=== PATIENT | male | born 1955 | race Caucasian/White ===

== ENCOUNTER 2016-11-13 22:22 | Emergency (ER) | payer OTHER ==
[~2016-11-13] VITALS: Ht 167.6 cm; Wt 77.2 kg
[~2016-11-13 22:22] MED LIST: ASPI81TA21 PO; BTP80 PO; CLX/20 PO; CRS20 PO; ELQ25 PO; MGNO400 PO; NTRGSL/4 UT; ULT/50 PO
[2016-11-13 22:27] VITALS: TEMP 36.8; Ht 167.6 cm; Wt 77.2 kg
--- NOTE | 2016-11-13 23:17 | DIAGNOSTIC IMAGING REPORT ---
CT SCAN OF THE BRAIN WITHOUT IV CONTRAST CLINICAL HISTORY: Fall. Intoxication. COMPARISON STUDY: No priors. TECHNIQUE: Unenhanced axial CT scan of the brain is performed from the vertex to the skull base. Automated dose control exposure was utilized. CT DOSE: 638.56 mGycm FINDINGS: Brain parenchyma: The brain parenchyma is normal in appearance. There is no hemorrhage, mass effect, or evidence of acute territorial ischemia by CT criteria. Vasquez-white matter is preserved. No extra-axial fluid collection is seen. Ventricles, sulci, cisterns: Normal in configuration. Intracranial vasculature: There is atherosclerotic calcification of the cavernous carotid and vertebral arteries. Calvarium: There is no depressed femoral fracture. Sinuses and mastoids: The visualized paranasal sinuses are clear. The mastoid air cells are well pneumatized. Orbits: The bony orbits are grossly intact. IMPRESSION: No acute intracranial abnormality. Electronically signed by: Cuong Green M.D. 11/13/2016 11:16 PM Dictated Date/Time: 11/13/2016 11:14 PM
--- NOTE | 2016-11-13 23:22 | DIAGNOSTIC IMAGING REPORT ---
CT SCAN OF THE FACIAL BONES WITHOUT IV CONTRAST CLINICAL HISTORY: Fall. Facial injury. Intoxication. COMPARISON STUDY: CT scan of the brain performed concurrently on 11/13/2016. TECHNIQUE: High-resolution CT scan of the facial bones is performed. Images are reviewed in the axial, sagittal, and coronal planes. IV contrast was not administered for this examination. CT DOSE: 598.82 mGycm FINDINGS: The skeletal structures are well mineralized. There are bilateral nasal bone fractures with minimal depression and comminution on the left. Overlying soft tissue edema is noted. The bony nasal septum is intact noting slight leftward deviation. No additional facial bone fracture is seen. The bony orbits are intact and the orbital contents are within normal limits. The zygomatic arches and pterygoid plates are preserved. The maxilla and mandible are intact. There are no layering blood products within the paranasal sinuses. Trace mucosal thickening is seen in the left maxillary antrum. The remaining paranasal sinuses and the mastoid air cells are clear. The visualized calvarium and upper cervical spine are maintained. Partially imaged brain parenchyma is within normal limits. There is atherosclerotic calcification of the carotid bulbs. IMPRESSION: 1. There are bilateral nasal bone fractures as above with comminution on the left and overlying soft tissue edema. 2. No additional facial bone fracture is seen. The bony orbits are intact. Electronically signed by: Cuong Green M.D. 11/13/2016 11:21 PM Dictated Date/Time: 11/13/2016 11:17 PM
[2016-11-13 23:28] LABS: BASO % 0.8 %; BASO ABS # 0.05 K/uL (0-0.2); COMPLETE YES; HEMATOCRIT 44.9 % (42-52); IG% 1.8 %; LYMPH ABS # 1.62 K/uL (1.2-3.4); MEAN CELL VOLUME 96.8 fL (80-100); MEAN CORPUSCULAR HEMOGLOBIN 33.2 pg (25-34); MEAN CORPUSCULAR HGB CONC 34.3 g/dl (32-36); MEAN PLATELET VOLUME 9.9 fL (7.4-10.4); MONO % 7.9 %; NEUT % 60.5 %; PLATELET COUNT 217 K/uL (130-400); RED BLOOD COUNT 4.64 M/uL (4.7-6.1); WHITE BLOOD COUNT 6.24 K/uL (4.8-10.8)
[2016-11-13 23:49] LABS: BUN/CREATININE RATIO 16.3 (10-20); CALCIUM 9.1 mg/dl (8.5-10.1); POTASSIUM 3.8 mmol/L (3.5-5.1)
[2016-11-13 23:51] LABS: PROTHROMBIN TIME (PATIENT) 10.4 SECONDS (9.0-12.0)
[2016-11-13 23:52] LABS: ALB/GLOB RATIO 1.1 (0.9-2)
[2016-11-14] MEDS ORDERED: XYLOCAINE 1%/SOD BICARB 20 ML VIAL INFIL ONE (02:00)
[2016-11-14] MEDS ORDERED: OMEP20CA9 PO (02:31)
[2016-11-14] MEDS ORDERED: ROSU40TA18 PO (02:31)
[2016-11-14] MEDS ORDERED: NRV/5 PO (02:31)
[2016-11-14] MEDS ORDERED: SOTA160T PO (02:31)
[2016-11-14] MEDS ORDERED: DTRSR/10 PO (02:31)
[2016-11-14] MEDS ORDERED: SNC/20 PO (02:31)
[2016-11-14] MEDS ORDERED: APIX1TAB3 PO (02:31)
[2016-11-14] MEDS ORDERED: LSN20 PO (02:31)
--- NOTE | 2016-11-14 04:52 | EMERGENCY ROOM VISIT NOTE ---
History First contact with patient: 22:30 Chief Complaint: FALL Stated Complaint: FALL/ POSS. NOSE FX/ ALCOHOL USAGE History of Present Illness The patient is a 61 year old male who presents to the Emergency Room with complaints of fall tonight with injury to his face. The patient admits to drinking alcohol but does not quantify how much. The patient alcohol on a regular basis. He believes the fall as mechanical, but is unsure. He does have injury to his nose and bleeding across the bridge of the nose. He does not report any pain and arrives the ambulance. The patient does not wish for intervention. He rates his discomfort a 0/10. She denies chronic medical disease, although based on his EMR he does have a history of A. fib and is on Eliquis. Review of Systems More than 10 systems were reviewed and otherwise negative with the exception of history of present illness. Past Medical/Surgical History Medical Problems: (1) Coronary artery disease (2) Limp (3) Muscular atrophy (4) Neurogenic bladder (5) Spina bifida (6) Spinal cord tumor Surgical Problems: (1) H/O percutaneous transluminal coronary angioplasty (2) Stented coronary artery Family History Cancer Diabetes mellitus Gallbladder disease Heart disease Hypertension Social History Smoking Status: Former Smoker Alcohol Use: occasionally Marital Status: Housing Status: lives with family Occupation Status: employed Current/Historical Medications Scheduled Amlodipine Besylate (Amlodipine Besylate), 5 MG PO DAILY Apixaban (Eliquis), 5 MG PO BID Lisinopril (Lisinopril), 20 MG PO DAILY Omeprazole (Prilosec), 20 MG PO BID Oxybutynin Chloride (Oxybutynin Chloride ER), 10 MG PO DAILY Rosuvastatin Calcium (Rosuvastatin Calcium), 40 MG PO DAILY Sotalol Hcl (Sotalol Hcl), 160 MG PO BID Trospium Chloride (Trospium Chloride), 20 MG PO BID Scheduled PRN Nitroglycerin (Nitrostat), 0.4 MG UT UD PRN for Chest Pain Allergies Coded Allergies: Sulfamethoxazole w/Trimethoprim (Verified Allergy, Intermediate, RASH, 11/14) Physical Exam Vital Signs Date Time Temp Pulse Resp B/P (MAP) Pulse Ox O2 Delivery O2 Flow Rate FiO2 11/14/16 03:45 63 18 104/65 95 Room Air 11/14/16 01:45 71 21 153/97 98 Room Air 11/14/16 00:00 63 20 91/61 96 Room Air 11/13/16 23:38 67 16 116/75 91 Room Air 11/13/16 23:32 68 11/13/16 22:27 36.8 69 18 135/67 94 Room Air Physical Exam VITALS: Vitals are noted on the nurse's note and reviewed by myself. Vital signs stable. GENERAL: Well-developed, well-nourished, white male who appears grossly intoxicated on examination. The patient is cooperative with the exam. HEAD: Normocephalic atraumatic. EARS: External ear normal. External auditory canals clear, tympanic membranes pearly vasquez without erythema or effusion bilaterally. EYES: Pupils equal round and reactive to light and accommodation. Conjunctivae without injection, sclerae without icterus. Extraocular movements intact. NOSE: There is a 2.0 cm linear laceration over the bridge of the nose that does gape and will require repair. There is dried blood noted in the bilateral nares without active bleeding. No septal hematoma. MOUTH: Mucous membranes moist. Tonsils are not enlarged. Pharynx without erythema, blood, or exudate. Uvula midline. Airway patent. NECK: Supple without nuchal rigidity. No lymphadenopathy. No thyromegaly. Cervical spine is nontender. HEART: Regular rate and rhythm without murmurs gallops or rubs. LUNGS: Clear to auscultation bilaterally without wheezes, rales or rhonchi. No retractions or accessory muscle use. ABDOMEN: Positive normal bowel sounds x 4. Soft, nontender, without masses or organomegaly. No guarding or rebound tenderness. MUSCULOSKELETAL: No muscle atrophy, erythema, or edema noted. Full range of motion without joint tenderness in all extremities. NEURO: Patient appears intoxicated. GCS 15 Medical Decision & Procedures ER Provider Diagnostic Interpretation: CT SCAN OF THE BRAIN WITHOUT IV CONTRAST CLINICAL HISTORY: Fall. Intoxication. COMPARISON STUDY: No priors. TECHNIQUE: Unenhanced axial CT scan of the brain is performed from the vertex to the skull base. Automated dose control exposure was utilized. CT DOSE: 638.56 mGycm FINDINGS: Brain parenchyma: The brain parenchyma is normal in appearance. There is no hemorrhage, mass effect, or evidence of acute territorial ischemia by CT criteria. Vasquez-white matter is preserved. No extra-axial fluid collection is seen. Ventricles, sulci, cisterns: Normal in configuration. Intracranial vasculature: There is atherosclerotic calcification of the cavernous carotid and vertebral arteries. Calvarium: There is no depressed femoral fracture. Sinuses and mastoids: The visualized paranasal sinuses are clear. The mastoid air cells are well pneumatized. Orbits: The bony orbits are grossly intact. IMPRESSION: No acute intracranial abnormality. CT SCAN OF THE FACIAL BONES WITHOUT IV CONTRAST CLINICAL HISTORY: Fall. Facial injury. Intoxication. COMPARISON STUDY: CT scan of the brain performed concurrently on 11/13/2016. TECHNIQUE: High-resolution CT scan of the facial bones is performed. Images are reviewed in the axial, sagittal, and coronal planes. IV contrast was not administered for this examination. CT DOSE: 598.82 mGycm FINDINGS: The skeletal structures are well mineralized. There are bilateral nasal bone fractures with minimal depression and comminution on the left. Overlying soft tissue edema is noted. The bony nasal septum is intact noting slight leftward deviation. No additional facial bone fracture is seen. The bony orbits are intact and the orbital contents are within normal limits. The zygomatic arches and pterygoid plates are preserved. The maxilla and mandible are intact. There are no layering blood products within the paranasal sinuses. Trace mucosal thickening is seen in the left maxillary antrum. The remaining paranasal sinuses and the mastoid air cells are clear. The visualized calvarium and upper cervical spine are maintained. Partially imaged brain parenchyma is within normal limits. There is atherosclerotic calcification of the carotid bulbs. IMPRESSION: 1. There are bilateral nasal bone fractures as above with comminution on the left and overlying soft tissue edema. 2. No additional facial bone fracture is seen. The bony orbits are intact. Laboratory Results 11/13/16 23:17 Red Blood Count 4.64, Mean Corpuscular Volume 96.8, Mean Corpuscular Hemoglobin 33.2, Mean Corpuscular Hemoglobin Concent 34.3, Mean Platelet Volume 9.9, Neutrophils (%) (Auto) 60.5, Lymphocytes (%) (Auto) 26.0, Monocytes (%) (Auto) 7.9, Eosinophils (%) (Auto) 3.0, Basophils (%) (Auto) 0.8, Neutrophils # (Auto) 3.78, Lymphocytes # (Auto) 1.62, Monocytes # (Auto) 0.49, Eosinophils # (Auto) 0.19, Basophils # (Auto) 0.05 11/13/16 23:17 Test 11/13/16 23:17 11/13/16 23:18 White Blood Count 6.24 K/uL (4.8-10.8) Red Blood Count 4.64 M/uL (4.7-6.1) Hemoglobin 15.4 g/dL (14.0-18.0) Hematocrit 44.9 % (42-52) Mean Corpuscular Volume 96.8 fL (80-100) Mean Corpuscular Hemoglobin 33.2 pg (25-34) Mean Corpuscular Hemoglobin Concent 34.3 g/dl (32-36) Platelet Count 217 K/uL (130-400) Mean Platelet Volume 9.9 fL (7.4-10.4) Neutrophils (%) (Auto) 60.5 % Lymphocytes (%) (Auto) 26.0 % Monocytes (%) (Auto) 7.9 % Eosinophils (%) (Auto) 3.0 % Basophils (%) (Auto) 0.8 % Neutrophils # (Auto) 3.78 K/uL (1.4-6.5) Lymphocytes # (Auto) 1.62 K/uL (1.2-3.4) Monocytes # (Auto) 0.49 K/uL (0.11-0.59) Eosinophils # (Auto) 0.19 K/uL (0-0.5) Basophils # (Auto) 0.05 K/uL (0-0.2) RDW Standard Deviation 43.5 fL (36.4-46.3) RDW Coefficient of Variation 12.5 % (11.5-14.5) Immature Granulocyte % (Auto) 1.8 % Immature Granulocyte # (Auto) 0.11 K/uL (0.00-0.02) Prothrombin Time 10.4 SECONDS (9.0-12.0) Prothromb Time International Ratio 1.0 (0.9-1.1) Activated Partial Thromboplast Time 27.1 SECONDS (21.0-31.0) Partial Thromboplastin Ratio 1.0 Anion Gap 9.0 mmol/L (3-11) Est Creatinine Clear Calc Drug Dose 77.8 ml/min Estimated GFR () 95.1 Estimated GFR (Non- 82.0 BUN/Creatinine Ratio 16.3 (10-20) Calcium Level 9.1 mg/dl (8.5-10.1) Total Bilirubin 0.8 mg/dl (0.2-1) Aspartate Amino Transf (AST/SGOT) 45 U/L (15-37) Alanine Aminotransferase (ALT/SGPT) 50 U/L (12-78) Alkaline Phosphatase 131 U/L (45-117) Total Protein 7.4 gm/dl (6.4-8.2) Albumin 3.9 gm/dl (3.4-5.0) Globulin 3.5 gm/dl (2.5-4.0) Albumin/Globulin Ratio 1.1 (0.9-2) Ethyl Alcohol mg/dL 368.0 mg/dl (0-3) Bedside Troponin I < 0.030 ng/ml (0-0.045) Procedure Laceration repair. Patient elects to have their laceration repaired. Verbal consent was obtained to perform the procedure. There is an abundance of materials available for the procedure. Patient is not allergic to latex. Using sterile technique the wound was cleaned with Betadine. The area was sterilely draped. 3 ml of 1% buffered lidocaine was used to anesthetize the nasal laceration. Once the patient was anesthetized, the wound was copiously irrigated under pressure with sterile saline. The wound was explored and there were no deep structures injured such as tendons, bone, or significant blood vessels. The laceration was repaired using 2 simple interrupted 6-0 nylon sutures with the wound edges being well approximated. Hemostasis was achieved. The area was cleaned with sterile saline and dressed with bacitracin ointment and bandage. Patient is reportedly up-to-date on his tetanus and this was deferred. Patient tolerated the procedure well without complications. Blood loss was negligible. ED Course Physical exam and history were performed. Nursing notes and EMR were reviewed. Patient appears to have suffered a mechanical fall while drinking alcohol this evening. The patient has a history of atrial fibrillation and is on Eliquis. The patient is only minimally cooperative with the examination and with testing. With the assistance of nursing we were able to perform basic labs but not establish an IV EKG was performed and was normal sinus rhythm at [address] elevation or ectopy. The patient did consent to CT scanning. The patient's blood work is as above and was reviewed. He does not have a significantly elevated white blood cell count, gross anemia, bandemia, or significant electrolyte imbalance. His alcohol is markedly elevated at 368. CT scan of the head and face do not show evidence of acute intracranial bleed but does reveal a nasal bone fracture as described above. The patient was monitored for greater than 7 hours here in the emergency department. Throughout this time he did sober up and did not report new or other injury. He continues without neck or chest discomfort. He is much more conversational and cooperative over time. He was able to stand and use the bathroom. The patient does have a nasal bridge laceration and this was repaired as above. The patient is evidently followed with ENT in the past, and he will need referred back to their service regarding his nasal fracture. The patient was otherwise invited back to the emergency department with any new, worsening, or concerning symptoms. He'll be discharged home under the care of his who is sober and is acting as the driver education road instructor [id number]. The chart was completed utilizing [employer] Speech Voice Recognition Software. Grammatical errors, random word insertions, pronoun errors, and incomplete sentences are an occasional consequence of this system due to software limitations, ambient noise, and hardware issues. Any formal questions or concerns about the content, text, or information contained within the body of this dictation should be directly addressed to the provider for clarification. . Medical Decision Differential diagnosis: Etiologies such as concussion, contusion, fracture, subdural hematoma, epidural hematoma, intraparenchymal hemorrhage, as well as other traumatic pathologies were entertained. Impression Primary Impression: Fall Additional Impressions: Nasal fracture Alcohol intoxication Departure Information Referrals Kodi Cronin III, M.D. (PCP) Patient Instructions My [facility] Problem Qualifiers
[2016-11-14 06:35] VITALS: BP 104/71; PULSE 70; O2SAT 95
== END 2016-11-14 06:32 | disposition home or self-care (01) ==
LOC: EDBD 22:22 → C.EDC 22:26 → C.EDB 11-14 06:32
DX: S02.2XXA Fracture of nasal bones, initial encounter for closed fracture (principal); S01.21XA Laceration without foreign body of nose, initial encounter; F10.129 Alcohol abuse with intoxication, unspecified; W19.XXXA Unspecified fall, initial encounter; I48.91 Unspecified atrial fibrillation; Z79.01 Long term (current) use of anticoagulants; M62.50 Muscle wasting and atrophy, not elsewhere classified, unspecified site; I25.10 Atherosclerotic heart disease of native coronary artery without angina pectoris; Q05.9 Spina bifida, unspecified; Z95.5 Presence of coronary angioplasty implant and graft; Z80.9 Family history of malignant neoplasm, unspecified; Z83.3 Family history of diabetes mellitus; Z82.49 Family history of ischemic heart disease and other diseases of the circulatory system; Z87.891 Personal history of nicotine dependence; Z79.899 Other long term (current) drug therapy

== ENCOUNTER 2019-08-30 14:45 | Inpatient (IN) ==
[2019-08-30] MEDS ORDERED: ACETAMINOPHEN 325 MG TAB PO PRN (15:22)
[2019-08-30] MEDS ORDERED: bisacodyL 5 MG TABEC PO PRN (17:26)
--- NOTE | 2019-08-30 17:33 | History & Physical Report ---
Date of Service August 30, 2019 Assessment & Plan (1) Neuropathic foot ulcer: (2) Cellulitis: Possible Osteomyelitis Left 5th toe Pt is 64 y/o M with PMH paroxysmal atrial fibrillation, CAD s/p PCI to LAD in 2010, mitral regurgitation, HTN, HLD, spina bifida s/p repair, neuropathy, h/o ETOH abuse quit in 2016 seen as direct admission for left toe ulcer and cellulitis. Pt reports h/o callus to dorsal left 5th toe, however 4 days ago area appeared like a scab and pt states removed it. Since has noticed some purulent discharge, tactile fever and rapid worsening redness over past 24 hours. Seen in wound clinic today and had area debrided and wound culture obtained Today pt afebrile, no leukocytosis, CRP: 9, ESR: 47 Xray toe: Thin-walled bone cyst versus early developing osteomyelitis midshaft fifth metatarsal Blood cultures pending Wound culture obtained in wound clinic 08/30/2019 Zosyn, vancomycin Ortho consult CBC, BMP in am (3) Hypokalemia: K: 2.9 Magnesium level pending Replace and monitor (4) Paroxysmal atrial fibrillation: CHADS score of 1 Continue sotalol (5) Coronary artery disease: S/P PCI LAD in 2010 Continue aspirin, rosuvastatin (6) HTN (hypertension): Stable Continue lisinopril (7) Neuropathy: Continue gabapentin (8) Spina bifida: Fall precautions Continue self cath as needed DVT Prophylaxis: SCDs for now Full Code as per discussion with pt Follows with Dr Cronin for routine care Pt was seen and care coordinated with Dr Dumont. See addendum Admission and Anticipated Discharge Date Admission Date: August 30, 2019 History of Present Illness Chief Complaint: left foot ulcer and redness Primary Care Provider: Kodi Cronin MD Pt is 64 y/o M with PMH paroxysmal atrial fibrillation, CAD s/p PCI to LAD in 2010, mitral regurgitation, HTN, HLD, spina bifida s/p repair, neuropathy, h/o ETOH abuse quit in 2016 seen as direct admission for left toe ulcer and cellulitis. Pt reports h/o callus to dorsal left 5th toe, however 4 days ago area appeared like a scab and pt states removed it. Since has noticed some purulent discharge. He states 3 days ago felt feverish and lethargic. Did not take temperature at the time. Reports yesterday feeling better however noticed redness to left 5th toe and foot with rapid increased redness of foot today. Pt seen in wound clinic today and had area debrided and wound culture obtained. Pt reports chronic SOB with exertion since his PCI, denies any increased SOB. Has chronic constipation. Has to self cath several times a day. Pt reports has orthotic shoes. Has not been on any recent antibiotics. Denies diaphoresis, N/V/D, LIU, dizziness, syncope, vision changes, neck pain, CP, orthopnea, palpitations, cough, choking, otalgia, rhinorrhea, abdominal pain, extremity edema, other rashes, dysuria, hematuria. Denies h/o MRSA. Allergies Allergy/AdvReac Type Severity Reaction Status Date / Time Bactrim Allergy Intermediate RASH Verified 11/14/16 02:28 sulfamethoxazole Allergy Intermediate RASH Verified 08/30/19 13:16 trimethoprim Allergy Intermediate RASH Verified 08/30/19 13:16 Home Medications Home Medications Medication Instructions Recorded Confirmed Type bisacodyl 5 mg PO DAILY PRN 05/02/19 08/30/19 History doxylamine succinate 25 mg PO HS PRN 05/02/19 08/30/19 History duloxetine 60 mg PO HS 05/02/19 08/30/19 History gabapentin 300 mg PO HS 05/02/19 08/30/19 History lisinopril 10 mg PO QAM 05/02/19 08/30/19 History omeprazole 20 mg PO BID 05/02/19 08/30/19 History rosuvastatin 40 mg PO QAM 05/02/19 08/30/19 History sotalol 160 mg PO BID 05/02/19 08/30/19 History aspirin 81 mg tablet,delayed 81 mg PO DAILY 08/30/19 08/30/19 History release Past Med/Surg History Medical History (Updated 08/30/19 @ 18:36 by Bhargavi Bates PA-C) Anxiety Atrial fibrillation DX 2012 HX OF CARDIOVERSION X 2 LAST ATRIAL FIB WAS ABOUT 5 YEARS AGO BPH (benign prostatic hyperplasia) CAD (coronary artery disease) Cardiac murmur follows with DR. ARREDONDO LAST ECHO 10/2017 Chronic constipation Esophageal dysphagia GERD (gastroesophageal reflux disease) History of cardioversion X2 HTN (hypertension) Neurogenic bladder (Chronic) Neuropathic foot ulcer Neuropathy Osteoarthritis Paroxysmal atrial fibrillation Spina bifida Surgical History History of right cataract surgery Hx of arthroscopic knee surgery LEFT Hx of colonoscopy Hx of esophagogastroduodenoscopy Hx of foot surgery RIGHT - STRAIGHTEN ANKLE AND UNSUCCESSFUL Hx of heart artery stent 2009 X2 STENT (EDILMA) AT [facility] FOLLOW WITH DR ARREDONDO Hx of spinal surgery 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 Social History Preferred Language: Dominican Communication Ability: Effective Side Piece Coverer Required: No Beliefs That Will Affect Care: None Current Living Situation: Spouse Other Information That Helps Us Care for You: No Feels Safe at Home: Yes Safety Concerns: Feels Safe At This Time Smoking Status: Former smoker Smoking End Date: 1992 ; Second Hand Exposure: Yes (mother smoked) ; Hx Alcohol Use: No (former; no use since 2016) Hx Substance Use: Yes substance use type: former substance user Last Used Substance Other:: 2017 Review of Systems Review of Systems: All systems reviewed & are unremarkable except as noted in HPI & below Physical Exam Physical Exam: General: no distress, WDWN Head: normocephalic, atraumatic Eyes: PERRL, EOM's intact, conjunctiva non-injected, anicteric ENT: normal inspection external ears, nose, mucous membranes moist Neck: supple, trachea midline, non-tender Lungs: clear, no respiratory distress, no wheezing/rhonchi/rales CV: RRR, no murmur, no pretibial edema Abd: normal BS, soft, non-tender Ext: no calf tenderness; left foot: left 5th toe dorsal aspect with open area with surrounding erythema with erythema and warmth extending to dorsal foot and slightly to anterior ankle. No purulent discharge at this time (area was debrided today at wound clinic) Neuro: A&O x 3, no focal deficits noted, normal affect Skin: warm, dry Results & Data Results & Data ([facility]) Vital Signs (Past 12 Hours) Vital Signs Temp Pulse Resp BP Pulse Ox 08/30/19 16:59 36.8 C 80 18 110/73 100 Laboratory Results Short CBC 08/30/19 Range/Units 17:34 WBC 8.45 (4.8-10.8) K/uL Hgb 14.2 (14.0-18.0) g/dL Hct 40.4 L (42-52) % Plt Count 213 (130-400) K/uL BMP 08/30/19 17:34 Sodium 137 Potassium 2.9 L Chloride 106 Carbon Dioxide 26 BUN 20 H Creatinine 0.96 Glucose 66 L Calcium 8.6 Liver Function 08/30/19 Range/Units 17:34 Total Bilirubin 1.3 H (0.2-1) mg/dl AST 18 (15-37) U/L ALT 33 (12-78) U/L Alkaline Phosphatase 107 (45-117) U/L Albumin 3.7 (3.4-5.0) gm/dl Diagnostic Findings Left Toe Xray: IMPRESSION: Thin-walled bone cyst versus early and or developing osteomyelitis midshaft fifth metatarsal. Moderate generalized degenerative change throughout the remaining bony structures. Mild soft tissue edema. Code Status & VTE Plan VTE Prophylaxis Plan VTE Prophylaxis will be ordered: Yes Supervising Physician Co-Signing Physician Notes I have seen and examined the patient and have discussed the case with the provider above. I agree with the assessment and plan as stated with the following exceptions. 64 yo spina bifida patient with chronic neuropathy in the lower extremities. Reports noncompliance with his orthotics and uses "[employer] shoes" to ambulate. Noted a "sore" in place for one year, but knew not to touch or manipulate it based on issues with skin wounds in the past. However, he removed the scab on his left 5th metatarsal last week which resulted in some bleeding. Over subsequent days, a spreading cellulitis occurred with wound debridement today and admission to the hospital this afternoon. The patient is not septic or ill-appearing. However, his cellulitis involves roughly 50% of his LLE, and I agree that intravenous antibiotics are warranted. As purulent drainage was noted in the debridement, will cover for staph aureus and MRSA empirically. Will also cover empirically with Zosyn as there was a rapidly sp reading erythema and there is a connection between this wound and a pressure ulcer pending culture results and clinical improvement. Ortho was consulted, and appreciate thoughts. MRI will not change initial management so will defer to Ortho and/or ID consultants. Replace potassium and repeat, Mg normal. Monitored on telemetry out of caution for possible developing illness, however, may be downgraded tomorrow if responding well clinically. My exam revealed stable vitals with a normal heart and lung exam, no abdominal issues. Skin findings included small closed wound without any drainage on left lateral foot. Surrounding cellulitis to the left knee was noted. Pt states the wound already looks improved since debridement performed. Tim,
[2019-08-30 17:54] LABS: Basophils # (auto) 0.05 K/uL (0-0.2); Basophils % (auto) 0.6 %; Eosinophils # (auto) 0.18 K/uL (0-0.5); Eosinophils % (auto) 2.1 %; Hematocrit (blood only) 40.4 % (42-52); Hemoglobin 14.2 g/dL (14.0-18.0); Immature Granulocytes # (auto) 0.11 K/uL (0.00-0.02); Immature Granulocytes % (auto) 1.3 %; Lymphocytes # (auto) 1.22 K/uL (1.2-3.4); Lymphocytes % (auto) 14.4 %; Mean Corpuscular Hgb Conc 35.1 g/dL (32-36); Mean Platelet Volume 10.5 fL (7.4-10.4); Monocytes # (auto) 1.14 K/uL (0.11-0.59); Monocytes % (auto) 13.5 %; Neutrophils # (auto) 5.75 K/uL (1.4-6.5); Neutrophils % (auto) 68.1 %; Platelet Count 213 K/uL (130-400); RDW Coefficient of Variation 12.8 % (11.5-14.5); RDW Standard Deviation 42.1 fL (36.4-46.3); Red Blood Count 4.44 M/uL (4.7-6.1); White Blood Count 8.45 K/uL (4.8-10.8)
[2019-08-30] MEDS ORDERED: PATIENT'S HEIGHT AND/OR WEIGHT NEEDED SCH (17:55)
[2019-08-30] MEDS ORDERED: VANCOMYCIN CONSULT ACTIVE PRN (17:56)
[2019-08-30] MEDS ORDERED: PIPERACILL/TAZOBAC CONSULT ACTIVE PRN (17:57)
--- NOTE | 2019-08-30 18:07 | XRay Report ---
XR toe(s) LT min 2V CLINICAL HISTORY: left 5th toe ulcer. R/O osteomyelitis COMPARISON: None. DISCUSSION: Findings consistent with an old healed fracture base fifth metatarsal. Moderate degenerat sona change of the interphalangeal as well as metatarsophalangeal joints. Probable thin-walled bone cyst versus potential early lytic lesion of the midshaft fifth metatarsal. Mild generalized degenerative change of all remaining bony structures. Moderate generalized soft tiss ue edema. IMPRESSION: Thin-walled bone cyst versus early and or developing osteomyelitis midshaft fifth metatar mireille. Moderate generalized degenerative change throughout the remaining bony structures. Mild soft tis ned edema. ACT 112: Negative or not required by law. The above report was generated using voice recognition software. It may contain grammatical, syntax or spelling errors. Electronically signed by: Melquiades Camarena M.D. 08/30/2019 6:06 PM
[2019-08-30 18:15] LABS: Albumin Level 3.7 gm/dl (3.4-5.0); BUN Creatinine Ratio 21.4 (10-20); C Reactive Protein 9.06 mg/dl (0-0.29); Calcium 8.6 mg/dl (8.5-10.1); Est GFR (African American) 97.8; Est GFR (Non-African American) 84.4; Potassium 2.9 mmol/L (3.5-5.1)
[2019-08-30 18:17] LABS: Bilirubin,Total 1.3 mg/dl (0.2-1); Globulin 3.8 gm/dl (2.5-4.0); Total Protein 7.5 gm/dl (6.4-8.2)
[2019-08-30] MEDS ORDERED: POTASSIUM CHLORIDE 20 MEQ TABCR PO STA (18:37)
[2019-08-30] MEDS ORDERED: PIPERACILLIN/TAZOBACTAM 4.5 GM in DEXTROSE 5% 100 ML IV STA (18:43)
[2019-08-30] MEDS ORDERED: VANCOMYCIN HCL 1,750 MG in SODIUM CHLORIDE 0.9% 500 ML IV STA (18:44)
--- NOTE | 2019-08-30 19:45 | Pharmacy Report ---
Pharmacy Abx Dose Short Note - Date of Service August 30, 2019 - Assessment & Plan Assessment 64 year old M ordered empiric vancomycin + zosyn for treatment of cellulitis, possible osteo * 08/29 Xray toe: Thin-walled bone cyst versus early developing osteomyelitis midshaft fifth metatarsal * BC x 2 and left fifth toe wound culture (obtained at wound clinic) pending Plan Vancomycin * Loading dose: 1750 mg IV (24 mg/kg) x 1 * Maintenance dose: 1000 mg (13.7 mg/kg) IV q12h - dose per AUC nomogram * Trough level will be obtained if therapy is continued beyond 48 hours Zosyn * 4.5 g IV x 1, then 3.375 g IV q8h via ext inf Pharmacy will continue to follow and will adjust dose/frequency as necessary. Thank you.
[2019-08-30] MEDS: SOTALOL HCL 80 MG TAB PO SCH (21:31)
[2019-08-30] MEDS: PANTOprazole 40 MG TAB PO SCH (21:31)
[2019-08-30] MEDS: GABAPENTIN 300 MG CAP PO SCH (21:32)
[2019-08-30] MEDS: DULOXETINE HCL 60 MG CAP PO SCH (21:32)
[2019-08-30] MEDS ORDERED: POTASSIUM CHLORIDE 20 MEQ TABCR PO ONE (22:00)
[2019-08-31] MEDS: PIPERACILLIN/TAZOBACTAM 3.375 GM in DEXTROSE 5% 100 ML IV SCH ×3 (01:33→17:14)
[2019-08-31] MEDS: VANCOMYCIN HCL 1,000 MG in SODIUM CHLORIDE 0.9% 250 ML IV SCH ×2 (05:49→17:14)
[2019-08-31 05:52] LABS: Hemoglobin 12.3 g/dL (14.0-18.0); Mean Corpuscular Hemoglobin 31.5 pg (25-34); Mean Corpuscular Hgb Conc 34.2 g/dL (32-36); Mean Corpuscular Volume 92.1 fL (80-100); Mean Platelet Volume 10.3 fL (7.4-10.4); Platelet Count 192 K/uL (130-400); RDW Standard Deviation 43.2 fL (36.4-46.3); Red Blood Count 3.91 M/uL (4.7-6.1); White Blood Count 7.14 K/uL (4.8-10.8)
[2019-08-31 06:35] LABS: C Reactive Protein 7.94 mg/dl (0-0.29); Calcium 8.4 mg/dl (8.5-10.1); Creatinine Clr Calc Pharmacy 71.3 ml/min; Est GFR (African American) 96.6; Est GFR (Non-African American) 83.3; Magnesium 2.1 mg/dl (1.8-2.4); Potassium 4.3 mmol/L (3.5-5.1)
[2019-08-31] MEDS: PANTOprazole 40 MG TAB PO SCH ×2 (08:17→20:36)
[2019-08-31] MEDS: ROSUVASTATIN CALCIUM 20 MG TAB PO SCH (08:17)
[2019-08-31] MEDS: ASPIRIN 81 MG ECTAB PO SCH (08:17)
[2019-08-31] MEDS: SOTALOL HCL 80 MG TAB PO SCH ×2 (08:18→20:36)
[2019-08-31] MEDS: ENOXAPARIN INJ 40 MG/0.4 ML SYR SQ SCH (08:18)
[2019-08-31] MEDS ORDERED: lisinopriL 10 MG TAB PO SCH (09:00)
--- NOTE | 2019-08-31 10:14 | Hospitalist Progress Note ---
Date of Service August 31, 2019 Assessment & Plan (1) Neuropathic foot ulcer: (2) Cellulitis: 64 y/o M with PMH paroxysmal atrial fibrillation, CAD s/p PCI to LAD in 2010, mitral regurgitation, HTN, HLD, spina bifida s/p repair, neuropathy, h/o ETOH abuse quit in 2017 seen as direct admission for left toe ulcer and purulent cellulitis. Seen in wound clinic on 08/30/19 and had area debrided and wound culture obtained prior to hospital admission Patient remains afebrile No leukocytosis XR of left foot does report thin walled cyst vs early and or developing osteomyelitis of 5th metatarsal. Patient is currently on iv vancomycin and zosyn. Will get MRI of the foot to rule out possible osteomyelitis considering XR findings. Also this will help determine appropriate antibiotics and duration of therapy if patient does have osteomyelitis. May also be helpful for the orthopedic consult ordered by Admitting physician (3) Hypokalemia: K: 2.9 on admission Repleted K is 4.3 today Monitor (4) Paroxysmal atrial fibrillation: Rate controlled Continue sotalol (5) Coronary artery disease: S/P PCI LAD in 2010 Continue aspirin, rosuvastatin (6) HTN (hypertension): Stable Continue lisinopril (7) Neuropathy: Continue gabapentin Counselled patient on proper foot care considering his neuropathy. Stated he has not been using his custom shoes recently as his legs has been getting weaker and shoes felt heavier Continue to see orthotics outpatient for reevaluation of custom shoes (8) Spina bifida: Fall precautions Continue self cath as needed for incontinence DVT Prophylaxis: Lovenox Admission and Anticipated Discharge Date Admission Date: August 30, 2019 Subjective Patient seen and examined. Reports no new complaints. Reports he has chronic neuropathy, childhood spina bifida and spinal surgery. Has had callus for a while, removed it some days ago and shortly developed redness and purulent discharge. Seen at wound care clinic yesterday prior to admission Review of Systems Constitutional: no fever and no chills Eyes: no problem reported Ear, Nose, Mouth, Throat: no problem reported Respiratory: no cough, no dyspnea and no dyspnea on exertion Cardiovascular: no chest pain, no dyspnea, no palpitations and no edema Gastrointestinal: no abdominal pain, no nausea and no vomiting Musculoskeletal: Left 5th toe callus Left foot redness and purulent drainage Neurologic: Numbness in lower extremities bilaterally Psychiatric: no problem reported Physical Exam Constitutional: well developed and well nourished; no acute distress Eyes: PERRL, conjunctivae normal, anicteric sclerae ENMT: external ear and nose normal, oropharynx normal Respiratory: normal respiratory effort, lungs clear to auscultation Cardiovascular: RRR, no murmur, no edema S1 S2 Gastrointestinal (Abdomen): normal bowel sounds, soft, nontender, no hepatosplenomegaly Musculoskeletal: Erythema on anterior ankle Erythema over dorsum of left foot. Wound on dorsum of left 5th felder with erythema, no obvious drainage at this time, nontender Neurologic: PERRL, EOMI, accommodation nl, no face palsy, no dysarthria moves all extremities Reduced sensation on plantar surface of feet bilaterally, posterior aspect of lower extremities Psychiatric: A+Ox3, euthymic affect Results & Data Results & Data ([facility]) Vital Signs (Past 12 Hours) Vital Signs Temp Pulse Pulse Resp BP Pulse Ox 08/31/19 07:07 36.7 C 63 18 101/63 95 08/31/19 04:44 36.9 C 69 20 105/68 94 08/31/19 01:43 78 08/30/19 23:32 36.6 C 81 20 106/67 97 Laboratory Results Laboratory Results - last 24 hr 08/30/19 08/30/19 08/30/19 17:34 17:34 17:34 WBC 8.45 RBC 4.44 L Hgb 14.2 Hct 40.4 L MCV 91.0 MCH 32.0 MCHC 35.1 RDW Std Deviation 42.1 RDW Coeff of Elan 12.8 Plt Count 213 MPV 10.5 H Immature Gran % (Auto) 1.3 Neut % (Auto) 68.1 Lymph % (Auto) 14.4 Harper % (Auto) 13.5 Eos % (Auto) 2.1 Baso % (Auto) 0.6 Immature Gran # (Auto) 0.11 H Neut # (Auto) 5.75 Lymph # (Auto) 1.22 Harper # (Auto) 1.14 H Eos # (Auto) 0.18 Baso # (Auto) 0.05 ESR 47 H Sodium 137 Potassium 2.9 L Chloride 106 Carbon Dioxide 26 Anion Gap 5.0 BUN 20 H Creatinine 0.96 Est Cr Clr Drug Dosing 72.0 Est GFR ( Amer) 97.8 Est GFR (Non-Af Amer) 84.4 BUN/Creatinine Ratio 21.4 H Glucose 66 L POC Glucose Estimat Average Glucose Hemoglobin A1c Calcium 8.6 Magnesium Total Bilirubin 1.3 H AST 18 ALT 33 Alkaline Phosphatase 107 C-Reactive Protein 9.06 H Total Protein 7.5 Albumin 3.7 Globulin 3.8 Albumin/Globulin Ratio 1.0 08/30/19 08/31/19 08/31/19 17:34 02:31 05:33 WBC 7.14 RBC 3.91 L Hgb 12.3 L Hct 36.0 L MCV 92.1 MCH 31.5 MCHC 34.2 RDW Std Deviation 43.2 RDW Coeff of Elan 13.0 Plt Count 192 MPV 10.3 Immature Gran % (Auto) Neut % (Auto) Lymph % (Auto) Harper % (Auto) Eos % (Auto) Baso % (Auto) Immature Gran # (Auto) Neut # (Auto) Lymph # (Auto) Harper # (Auto) Eos # (Auto) Baso # (Auto) ESR Sodium Potassium Chloride Carbon Dioxide Anion Gap BUN Creatinine Est Cr Clr Drug Dosing Est GFR ( Amer) Est GFR (Non-Af Amer) BUN/Creatinine Ratio Glucose POC Glucose 110 H Estimat Average Glucose Hemoglobin A1c Calcium Magnesium 2.0 Total Bilirubin AST ALT Alkaline Phosphatase C-Reactive Protein Total Protein Albumin Globulin Albumin/Globulin Ratio 08/31/19 08/31/19 08/31/19 05:33 05:33 05:33 WBC RBC Hgb Hct MCV MCH MCHC RDW Std Deviation RDW Coeff of Elan Plt Count MPV Immature Gran % (Auto) Neut % (Auto) Lymph % (Auto) Harper % (Auto) Eos % (Auto) Baso % (Auto) Immature Gran # (Auto) Neut # (Auto) Lymph # (Auto) Harper # (Auto) Eos # (Auto) Baso # (Auto) ESR 28 H Sodium 137 Potassium 4.3 D Chloride 112 H Carbon Dioxide 27 Anion Gap -2.0 L BUN 15 Creatinine 0.97 Est Cr Clr Drug Dosing 71.3 Est GFR ( Amer) 96.6 Est GFR (Non-Af Amer) 83.3 BUN/Creatinine Ratio 16.0 Glucose 105 H POC Glucose Estimat Average Glucose Pending Hemoglobin A1c Pending Calcium 8.4 L Magnesium 2.1 Total Bilirubin AST ALT Alkaline Phosphatase C-Reactive Protein 7.94 H Total Protein Albumin Globulin Albumin/Globulin Ratio Diagnostic Findings XR toe(s) LT min 2V CLINICAL HISTORY: left 5th toe ulcer. R/O osteomyelitis COMPARISON: None. DISCUSSION: Findings consistent with an old healed fracture base fifth metatarsal. Moderate degenerative change of the interphalangeal as well as metatarsophalangeal joints. Probable thin-walled bone cyst versus potential early lytic lesion of the midshaft fifth metatarsal. Mild generalized degenerative change of all remaining bony structures. Moderate generalized soft tissue edema. IMPRESSION: Thin-walled bone cyst versus early and or developing osteomyelitis midshaft fifth metatarsal. Moderate generalized degenerative change throughout the remaining bony structures. Mild soft tissue edema.
--- NOTE | 2019-08-31 10:29 | Orthopedic Consultation ---
Date of Consultation August 31, 2019 Assessment & Plan (1) Neuropathic foot ulcer: Plan to continue IV antibiotics as per medicine service. He has been ordered for the left foot MRI to assess for osteomyelitis and question of any abscesses that may be developing. There is no leukocytosis noted at this time and ESR is 28 and CRP is 7.9. We will review the MRI results. If the patient does have noted osteomyelitis, the patient will possibly need a debridement or partial amputation if the osteomyelitis is extensive. Dr. Carvajal is aware and will be reviewing MRI results. Thank you for this consult. Supervising Physician Co-Signing Physician Notes Patient was seen and examined. I agree with LILLIAN Cuba's note above. He has acute infection of a callus that he picked off of the dorsal aspect of his left 5th toe 5 days ago. It looks like he has cellulitis spreading from this open ulcer over the fifth toe at the level of the middle phalanx. The patient reports that this is already significantly improving over the past day. No obvious osteomyelitis of the fifth toe on x-ray, but MRI is pending to evaluate this further and look for any abscesses. His x-ray did incidentally show an expansile lytic lesion in the midshaft of the metatarsal, remote from the area of his ulcer; we can evaluate this further on the MRI. Based on clinical exam, I think that this is mostly just a superficial cellulitis that will not require surgical intervention and will likely improve with IV antibiotic treatment, but the MRI will show us more. We will have our foot and ankle specialist, Dr. Carvajal, reviewed his case and provide his input as well. History of Present Illness Reason for Consultation: Neuropathic ulcer left fifth toe Attending Physician: Anabel Ball MD History of Present Illness Patient is a 64-year-old white male who has a history of paroxysmal atrial fibrillation, CAD status post PCI to LAD in 2010, mitral regurgitation, hypertension, hyperlipidemia, spina bifida status post repair with neuropathy for years was admitted yesterday with a cellulitis and a neuropathic ulcer of the left fifth toe. Patient states that he has dealt with neuropathic foot problems over the years and has been seen by Dr. Carvajal in the past for his right foot as well. He states that he has had a callused area over the left fifth toe that has been fine for approximately 5 years. He states that he noticed a scab that had developed on the area recently and he ended up picking off the scab. Over short period time, this developed into a cellulitis and he had some noted drainage from the toe ulcer. He saw Dr. Ferguson yesterday in the office who debrided the ulcer at that time. The amount of cellulitis, the patient was then sent to [facility] for IV antibiotics. During that time, foot x-ray was taken and showed a likelihood of a thin-walled bone cyst at the fifth metatarsal. We have been asked to see him for his neuropathic ulcer as well as the possibility of the bone cyst. Currently the patient is awake and alert and states that his cellulitis is much better than yesterday. He also states that the ulcer on the fifth toe looks about the same as it does normally after the debridement. Allergies Allergy/AdvReac Type Severity Reaction Status Date / Time Bactrim Allergy Intermediate RASH Verified 11/14/16 02:28 sulfamethoxazole Allergy Intermediate RASH Verified 08/30/19 13:16 trimethoprim Allergy Intermediate RASH Verified 08/30/19 13:16 Home Medications Home Medications Medication Instructions Recorded Confirmed Type bisacodyl 5 mg PO DAILY PRN 05/02/19 08/30/19 History doxylamine succinate 25 mg PO HS PRN 05/02/19 08/30/19 History duloxetine 60 mg PO HS 05/02/19 08/30/19 History gabapentin 300 mg PO HS 05/02/19 08/30/19 History lisinopril 10 mg PO QAM 05/02/19 08/30/19 History omeprazole 20 mg PO BID 05/02/19 08/30/19 History rosuvastatin 40 mg PO QAM 05/02/19 08/30/19 History sotalol 160 mg PO BID 05/02/19 08/30/19 History aspirin 81 mg tablet,delayed 81 mg PO DAILY 08/30/19 08/30/19 History release Patient History Medical History Anxiety Atrial fibrillation DX 2013 HX OF CARDIOVERSION X 2 LAST ATRIAL FIB WAS ABOUT 5 YEARS AGO BPH (benign prostatic hyperplasia) CAD (coronary artery disease) Cardiac murmur follows with DR. ARREDONDO LAST ECHO 10/2017 Chronic constipation Esophageal dysphagia GERD (gastroesophageal reflux disease) History of cardioversion X2 HTN (hypertension) Neurogenic bladder (Chronic) Neuropathic foot ulcer Neuropathy Osteoarthritis Paroxysmal atrial fibrillation Spina bifida Surgical History History of right cataract surgery Hx of arthroscopic knee surgery LEFT Hx of colonoscopy Hx of esophagogastroduodenoscopy Hx of foot surgery RIGHT - STRAIGHTEN ANKLE AND UNSUCCESSFUL Hx of heart artery stent 2009 X2 STENT (EDILMA) AT [facility] FOLLOW WITH DR ARREDONDO Hx of spinal surgery 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 Social History Preferred Language: Icelandic Communication Ability: Effective Skin Piler Required: No Beliefs That Will Affect Care: None Current Living Situation: Spouse Other Information That Helps Us Care for You: No Feels Safe at Home: Yes Safety Concerns: Feels Safe At This Time Smoking Status: Former smoker Smoking End Date: 1992 ; Second Hand Exposure: Yes (mother smoked) ; Hx Alcohol Use: No (former; no use since 2016) Hx Substance Use: Yes substance use type: former substance user Last Used Substance Other:: 2017 Physical Exam Physical Exam: Focusing the exam on the left foot, there is no dressing on the left fifth toe and foot. The neuropathic ulcer is completely closed at this time and is approximately just shy of a centimeter in width. There is a darkened area over the area in question that is not eschar at the center and looks more like necrosis. Tissue surrounding this area is light in color but not macerated. Erythema surrounding this and the whole toe. The patient states that this is what it normally looks like. He has a moderate cellulitis of the foot that is also traveling up the lower extremity to about mid tibia. Moderate swelling over the dorsum of the foot. Decreased sensation throughout the foot. Minimal tenderness on palpation. Patient states that this is much better than this morning. He has no overt pain on palpation of the area in question over his fifth toe and the fifth metatarsal. Again there are no open wounds draining at this time. Results & Data ([facility]) Vital Signs (Past 12 Hours) Vital Signs Temp Pulse Pulse Resp BP Pulse Ox 08/31/19 08:15 60 08/31/19 07:07 36.7 C 63 18 101/63 95 08/31/19 04:44 36.9 C 69 20 105/68 94 04/16/20 01:43 78 08/30/19 23:32 36.6 C 81 20 106/67 97 Laboratory Results Laboratory Results WBC 7.14 K/uL (4.8-10.8) 08/31/19 05:33 RBC 3.91 M/uL (4.7-6.1) L 08/31/19 05:33 Hgb 12.3 g/dL (14.0-18.0) L 08/31/19 05:33 Hct 36.0 % (42-52) L 08/31/19 05:33 MCV 92.1 fL (80-100) 08/31/19 05:33 MCH 31.5 pg (25-34) 08/31/19 05:33 MCHC 34.2 g/dL (32-36) 08/31/19 05:33 RDW Std Deviation 43.2 fL (36.4-46.3) 08/31/19 05:33 RDW Coeff of Elan 13.0 % (11.5-14.5) 08/31/19 05:33 Plt Count 192 K/uL (130-400) 08/31/19 05:33 MPV 10.3 fL (7.4-10.4) 08/31/19 05:33 Immature Gran % (Auto) 1.3 % 08/30/19 17:34 Neut % (Auto) 68.1 % 08/30/19 17:34 Lymph % (Auto) 14.4 % 08/30/19 17:34 K[place]haw % (Auto) 13.5 % 08/30/19 17:34 Eos % (Auto) 2.1 % 08/30/19 17:34 Baso % (Auto) 0.6 % 08/30/19 17:34 Immature Gran # (Auto) 0.11 K/uL (0.00-0.02) H 08/30/19 17:34 Neut # (Auto) 5.75 K/uL (1.4-6.5) 08/30/19 17:34 Lymph # (Auto) 1.22 K/uL (1.2-3.4) 08/30/19 17:34 Kershaw # (Auto) 1.14 K/uL (0.11-0.59) H 08/30/19 17:34 Eos # (Auto) 0.18 K/uL (0-0.5) 08/30/19 17:34 Baso # (Auto) 0.05 K/uL (0-0.2) 08/30/19 17:34 ESR 28 mm/hr (0-14) H 08/31/19 05:33 Sodium 137 mmol/L (136-145) 08/31/19 05:33 Potassium 4.3 mmol/L (3.5-5.1) D 08/31/19 05:33 Chloride 112 mmol/L (98-107) H 08/31/19 05:33 Carbon Dioxide 27 mmol/L (21-32) 08/31/19 05:33 Anion Gap -2.0 (3-11) L 08/31/19 05:33 BUN 15 mg/dl (7-18) 08/31/19 05:33 Creatinine 0.97 mg/dl (0.6-1.4) 08/31/19 05:33 Est Cr Clr Drug Dosing 71.3 ml/min 08/31/19 05:33 Est GFR ( Amer) 96.6 08/31/19 05:33 Est GFR (Non-Af Amer) 83.3 08/31/19 05:33 BUN/Creatinine Ratio 16.0 (10-20) 08/31/19 05:33 Glucose 105 mg/dl (70-99) H 08/31/19 05:33 POC Glucose 110 mg/dl (70-99) H 08/31/19 02:31 Calcium 8.4 mg/dl (8.5-10.1) L 08/31/19 05:33 Magnesium 2.1 mg/dl (1.8-2.4) 08/31/19 05:33 Total Bilirubin 1.3 mg/dl (0.2-1) H 08/30/19 17:34 AST 18 U/L (15-37) 08/30/19 17:34 ALT 33 U/L (12-78) 08/30/19 17:34 Alkaline Phosphatase 107 U/L (45-117) 08/30/19 17:34 C-Reactive Protein 7.94 mg/dl (0-0.29) H 08/31/19 05:33 Total Protein 7.5 gm/dl (6.4-8.2) 08/30/19 17:34 Albumin 3.7 gm/dl (3.4-5.0) 08/30/19 17:34 Globulin 3.8 gm/dl (2.5-4.0) 08/30/19 17:34 Albumin/Globulin Ratio 1.0 (0.9-2) 08/30/19 17:34 Diagnostic Findings Patient: PAYTON PERALTA Date: 08/30/19 MR#: [id number] [address] Acct ID:[id number]: Date: 1955City Zip: [place] [address] Age: 64Location: 2W Sex: M Room/Bed: [facility] Att Phy: Vi Dumont, DODiagnosis: LEFT FOOT ULCER, LEFT LEG CELLULITIS [place] Phy: Kodi Cronin III, MDService Date: 08/30/19 Fam Phy:Interpreting Phy: Payton Camarena MD Admit Phy: Vi Dumont, Ordering Phy: Bhargavi Bates PA-C cc: ~ XR toe(s) LT min 2V CLINICAL HISTORY: left 5th toe ulcer. R/O osteomyelitis COMPARISON: None. DISCUSSION: Findings consistent with an old healed fracture base fifth metatarsal. Moderate degenerative change of the interphalangeal as well as metatarsophalangeal joints. Probable thin-walled bone cyst versus potential early lytic lesion of the m idshaft fifth metatarsal. Mild generalized degenerative change of all remaining bony structures. Moderate generalized soft tissue edema. IMPRESSION: Thin-walled bone cyst versus early and or developing osteomyelitis midshaft fifth metatarsal. Moderate generalized degenerative change throughout the remaining bony structures. Mild soft tissue edema.
[2019-08-31 11:21] LABS: Estimated Average Glucose 100 mg/dl; Hemoglobin A1C 5.1 % (4.5-5.6)
[2019-08-31] MEDS ORDERED: GADOBUTROL 65ML VIAL IV PRN (12:52)
--- NOTE | 2019-08-31 13:05 | Magnetic Resonance Report ---
MR foot LT wo/w con HISTORY: Left fifth toe swelling and infection. Rule out osteomyelitis TECHNIQUE: Multiplanar multisequence MRI of the left forefoot was performed both before and after the intravenous administration of 7 cc of Gadavist contrast. COMPARISON STUDY: Left fifth toe radiograph 08/30/2019. FINDINGS: T2 hyperintense, T1 hypointense signal involving the distal shaft and head of the proximal phalanx of the fifth toe. There is surrounding soft tissue edema. There is associated enhancement at the head of the proximal phalanx of the fifth toe. There is also surrounding soft tissue enhancement. Therefore, these findings are highly suspicious for osteomyelitis with surrounding cellulitis. No lo culated fluid collections to suggest an abscess. Dorsal subcutaneous edema throughout the forefoot. N o fracture or dislocation. The flexor and extensor tendons are intact. IMPRESSION: Above findings are highly suspicious for osteomyelitis involving the distal shaft and head of the pro ximal phalanx of the left fifth toe. ACT 112: Negative or not required by law. Electronically signed by: Baldemar Angel M.D. 08/31/2019 1:04 PM
[2019-08-31] MEDS ORDERED: SODIUM CHLORIDE 0.9% 1000ML 500 ML IV ONE (15:00)
[2019-08-31] MEDS: GABAPENTIN 300 MG CAP PO SCH (20:33)
[2019-08-31] MEDS: DULOXETINE HCL 60 MG CAP PO SCH (20:33)
[2019-09-01] MEDS: PIPERACILLIN/TAZOBACTAM 3.375 GM in DEXTROSE 5% 100 ML IV SCH ×2 (02:14→10:21)
[2019-09-01] MEDS ORDERED: VANCOMYCIN TROUGH ONE (05:30)
[2019-09-01 06:10] LABS: Hematocrit (blood only) 35.3 % (42-52); Hemoglobin 12.2 g/dL (14.0-18.0); Mean Corpuscular Hemoglobin 31.9 pg (25-34); Mean Corpuscular Hgb Conc 34.6 g/dL (32-36); Mean Corpuscular Volume 92.2 fL (80-100); Mean Platelet Volume 9.7 fL (7.4-10.4); Platelet Count 189 K/uL (130-400); RDW Standard Deviation 43.9 fL (36.4-46.3); Red Blood Count 3.83 M/uL (4.7-6.1); White Blood Count 7.49 K/uL (4.8-10.8)
[2019-09-01] MEDS: VANCOMYCIN HCL 1,000 MG in SODIUM CHLORIDE 0.9% 250 ML IV SCH (06:13)
[2019-09-01 06:47] LABS: BUN Creatinine Ratio 15.4 (10-20); Calcium 8.3 mg/dl (8.5-10.1); Est GFR (African American) 97.8; Est GFR (Non-African American) 84.4; Potassium 4.2 mmol/L (3.5-5.1)
[2019-09-01] MEDS: ASPIRIN 81 MG ECTAB PO SCH (08:07)
[2019-09-01] MEDS: SOTALOL HCL 80 MG TAB PO SCH ×2 (08:07→20:43)
[2019-09-01] MEDS: ROSUVASTATIN CALCIUM 20 MG TAB PO SCH (08:07)
[2019-09-01] MEDS: ENOXAPARIN INJ 40 MG/0.4 ML SYR SQ SCH (08:08)
[2019-09-01] MEDS: PANTOprazole 40 MG TAB PO SCH ×2 (08:08→20:39)
--- NOTE | 2019-09-01 11:27 | Hospitalist Progress Note ---
Date of Service September 01, 2019 Assessment & Plan (1) Neuropathic foot ulcer: (2) Cellulitis: Left 5th metatarsal osteomyelitis 64 y/o M with PMH paroxysmal atrial fibrillation, CAD s/p PCI to LAD in 2010, mitral regurgitation, HTN, HLD, spina bifida s/p repair, neuropathy, h/o ETOH abuse quit in 2017 seen as direct admission for left toe ulcer and purulent cellulitis. Seen in wound clinic on 08/30/19 and had area debrided and wound culture obtained prior to hospital admission Patient remains afebrile No leukocytosis XR of left foot does report thin walled cyst vs early and or developing osteomyelitis of 5th metatarsal. MRI reports highly suspicious for osteomyelitis involving the distal shaft and head of the proximal phalanx of the left fifth toe. Wound cutlure growing Group G beta strep Blood culture negative day 1 Patient is currently on iv vancomycin and zosyn. Deescalate to ceftriaxone for now Will follow up orthopedic recommendations Appreciate ID recommendations for antibiotics (3) Hypokalemia: K: 2.9 on admission Repleted K is 4.2 today Monitor (4) Paroxysmal atrial fibrillation: Rate controlled Continue sotalol (5) Coronary artery disease: S/P PCI LAD in 2010 Continue aspirin, rosuvastatin (6) HTN (hypertension): Had asymptomatic hypotension yesterday that resolved with IVF bolus Home lisinopril currently on hold BP normal. Continue to monitor (7) Neuropathy: Continue gabapentin Counselled patient on proper foot care considering his neuropathy. Stated he has not been using his custom shoes recently as his legs has been getting weaker and shoes felt heavier Continue to see orthotics outpatient for reevaluation of custom shoes Get PT/OT (8) Spina bifida: Fall precautions Continue self cath as needed for incontinence DVT Prophylaxis: Lovenox Admission and Anticipated Discharge Date Admission Date: August 30, 2019 Subjective Patient seen and examined Reports only mild pain/ discomfort on left foot. No new symptoms Denied any fevers, chills, nausea Denied any vomiting,abdominal pain, diarrhea Denied any chest pain, cough, SOB, MCINTYRE Physical Exam Constitutional: well developed and well nourished; no acute distress Eyes: PERRL, conjunctivae normal, anicteric sclerae ENMT: external ear and nose normal, oropharynx normal Respiratory: normal respiratory effort, lungs clear to auscultation Cardiovascular: RRR, no murmur, no edema Gastrointestinal (Abdomen): normal bowel sounds, soft, nontender, no hepatosplenomegaly Musculoskeletal: Erythema on anterior ankle Erythema over dorsum of left foot. Wound on dorsum of left 5th mcintyre with erythema, no obvious drainage at this time, nontender Hammer toes Exam similar to yesterday Neurologic: PERRL, EOMI, accommodation nl, no face palsy, no dysarthria moves all extremities Reduced sensation on plantar surface of feet bilaterally, posterior aspect of lower extremities Psychiatric: A+Ox3, euthymic affect Results & Data Results & Data ([facility]) Vital Signs (Past 12 Hours) Vital Signs Temp Pulse Pulse Resp BP BP Pulse Ox 09/01/19 08:08 36.8 C 62 18 102/68 97 09/01/19 08:05 65 109/73 09/01/19 07:24 59 L 09/01/19 04:00 36.7 C 64 18 103/66 99 09/01/19 03:01 60
--- NOTE | 2019-09-01 13:18 | Infectious Disease Consult ---
Date of Consultation September 01, 2019 Assessment & Plan (1) Osteomyelitis: can continue current abx for now, pending OR findings. blood cultures negative to date, if no new organisms found, would suggest Augmentin 875mg po bid x 4 weeks. (2) Cellulitis: History of Present Illness Attending Physician: Anabel Ball MD pt admitted from wound center on 08/29 due to cellulits and left foot ulcer, MRI done and suspicious for osteo, ESR only 28. wbc normal. afebrile. wound culture obtained on 08/29 - growing GGS, resistant to azithro and clinda. blood cultures negative. s/p ortho eval, npo for OR. creat normal. afrebile since admission. placed emperically on zosyn and vanco, tolerating well. vanco level today is 11. ID consulted for duration of abx. Allergies Allergy/AdvReac Type Severity Reaction Status Date / Time Bactrim Allergy Intermediate RASH Verified 11/14/16 02:28 sulfamethoxazole Allergy Intermediate RASH Verified 08/30/19 13:16 trimethoprim Allergy Intermediate RASH Verified 08/30/19 13:16 Home Medications Home Medications Medication Instructions Recorded Confirmed Type bisacodyl 5 mg PO DAILY PRN 05/02/19 08/30/19 History doxylamine succinate 25 mg PO HS PRN 05/02/19 08/30/19 History duloxetine 60 mg PO HS 05/02/19 08/30/19 History gabapentin 300 mg PO HS 05/02/19 08/30/19 History lisinopril 10 mg PO QAM 05/02/19 08/30/19 History omeprazole 20 mg PO BID 05/02/19 08/30/19 History rosuvastatin 40 mg PO QAM 05/02/19 08/30/19 History sotalol 160 mg PO BID 05/02/19 08/30/19 History aspirin 81 mg tablet,delayed 81 mg PO DAILY 08/30/19 08/30/19 History release Patient History Medical History Anxiety Atrial fibrillation DX 2013 HX OF CARDIOVERSION X 2 LAST ATRIAL FIB WAS ABOUT 5 YEARS AGO BPH (benign prostatic hyperplasia) CAD (coronary artery disease) Cardiac murmur follows with DR. ARREDONDO LAST ECHO 10/2017 Chronic constipation Esophageal dysphagia GERD (gastroesophageal reflux disease) History of cardioversion X2 HTN (hypertension) Neurogenic bladder (Chronic) Neuropathic foot ulcer Neuropathy Osteoarthritis Paroxysmal atrial fibrillation Spina bifida Surgical History History of right cataract surgery Hx of arthroscopic knee surgery LEFT Hx of colonoscopy Hx of esophagogastroduodenoscopy Hx of foot surgery RIGHT - STRAIGHTEN ANKLE AND UNSUCCESSFUL Hx of heart artery stent 2009 X2 STENT (EDILMA) AT [facility] FOLLOW WITH DR ARREDONDO Hx of spinal surgery 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 Social History Preferred Language: Danish Communication Ability: Effective Chronometer Tester Required: No Beliefs That Will Affect Care: None Current Living Situation: Spouse Other Information That Helps Us Care for You: No Feels Safe at Home: Yes Safety Concerns: Feels Safe At This Time Smoking Status: Former smoker Smoking End Date: 1992 ; Second Hand Exposure: Yes (mother smoked) ; Hx Alcohol Use: No (former; no use since 2016) Hx Substance Use: Yes substance use type: former substance user Last Used Substance Other:: 2017 Review of Systems Review of Systems: per H&P Results & Data ([facility]) Vital Signs (Past 12 Hours) Vital Signs Temp Pulse Pulse Resp BP BP Pulse Ox 09/01/19 11:42 36.9 C 64 18 92/56 L 95 09/01/19 08:08 36.8 C 62 18 102/68 97 09/01/19 08:05 65 109/73 09/01/19 07:24 59 L 09/01/19 04:00 36.7 C 64 18 103/66 99 09/01/19 03:01 60 Laboratory Results Microbiology 08/30/19 17:46 Blood Aerobic Blood Culture - Preliminary No growth in Aerobic bottle after 24 hours. 08/30/19 17:46 Blood Anaerobic Blood Culture - Preliminary No growth in Anaerobic bottle after 24 hours. 08/30/19 17:34 Blood Aerobic Blood Culture - Preliminary No growth in Aerobic bottle after 24 hours. 08/30/19 17:34 Blood Anaerobic Blood Culture - Preliminary No growth in Anaerobic bottle after 24 hours. PG Care Time/CCT Total # of Minutes Spent Total Time Spent with Patient: Total time spent is greater than 50% in coordination of care (as documented) at patient's floor/unit and/or counseling patient: Coding Level of Care Code 80310 Inpt Consult Level 2 Diagnoses Osteomyelitis M86.9 Cellulitis L03.90
[2019-09-01] MEDS ORDERED: ATROPINE SULFATE 0.1 MG/ML 10ML SYR IV PRN (13:20)
[2019-09-01] MEDS ORDERED: ePHEDrine sulfate 50 MG/ML AMP IV PRN (13:20)
[2019-09-01] MEDS ORDERED: fentaNYL citrate 100 MCG/2 ML VIAL IV PRN (13:20)
[2019-09-01] MEDS ORDERED: LABETALOL HCL IV 5 MG/ML 20ML IV PRN (13:20)
[2019-09-01] MEDS ORDERED: PHENYLEPHRINE 100MCG/ML 5ML SYR IV PRN (13:20)
[2019-09-01] MEDS ORDERED: ONDANSETRON INJ 2 MG/ML 2 ML VIAL IV PRN ×2 (13:20→16:48)
[2019-09-01] MEDS ORDERED: MEPERIDINE HCL 25 MG/ML CARP/VIAL IV PRN (13:20)
[2019-09-01] MEDS ORDERED: HYDROmorphone INJ 1 MG/ML SYRINGE IV PRN (13:20)
--- NOTE | 2019-09-01 13:38 | Anesthesiology Consultation ---
Date of Service September 01, 2019 Assessment & Plan (1) Encounter for pre-operative examination: (2) Encounter for pre-operative examination: Chart Review Chart Review: Acceptable Risk for Surgery and Patient NOT seen in Pre Admission Testing Consults Requested none History Surgery Operation Date: 09/01/19 12:05 Proposed Procedures p Left 5th Toe Amputation - Anthony Carvajal, Height/Weight Height: 5 ft 6 in Weight: 74.4 kg Allergies Allergy/AdvReac Type Severity Reaction Status Date / Time Bactrim Allergy Intermediate RASH Verified 11/14/16 02:28 sulfamethoxazole Allergy Intermediate RASH Verified 08/30/19 13:16 trimethoprim Allergy Intermediate RASH Verified 08/30/19 13:16 Medications Home Medications Medication Instructions Recorded Confirmed Last Taken bisacodyl 5 mg PO DAILY PRN 05/02/19 08/30/19 05/02/19 doxylamine succinate 25 mg PO HS PRN 05/02/19 08/30/19 05/02/19 duloxetine 60 mg PO HS 05/02/19 08/30/19 08/29/19 gabapentin 300 mg PO HS 05/02/19 08/30/19 08/29/19 lisinopril 10 mg PO QAM 05/02/19 08/30/19 08/30/19 omeprazole 20 mg PO BID 05/02/19 08/30/19 08/30/19 rosuvastatin 40 mg PO QAM 05/02/19 08/30/19 08/30/19 sotalol 160 mg PO BID 05/02/19 08/30/19 08/30/19 aspirin 81 mg tablet,delayed 81 mg PO DAILY 08/30/19 08/30/19 08/30/19 release Active Medications Generic Name Dose Route Start Last Admin Trade Name Freq PRN Reason Stop Dose Admin Aspirin 81 mg 08/31/19 09:00 09/01/19 08:07 Ecotrin Ectab PO 09/30/19 08:59 81 mg DAILY AALIYAH Administration Duloxetine HCl 60 mg 08/30/19 21:00 08/31/19 20:33 Cymbalta PO 09/29/19 20:59 60 mg HS AALIYAH Administration Enoxaparin Sodium 40 mg 08/31/19 09:00 09/01/19 08:08 Lovenox SQ 09/30/19 08:59 40 mg QAM AALIYAH Administration Gabapentin 300 mg 08/30/19 21:00 08/31/19 20:33 Neurontin PO 09/29/19 20:59 300 mg HS AALIYAH Administration Gadobutrol 7 ml 08/31/19 12:52 08/31/19 12:52 Gadavist 65ml IV 09/04/19 12:51 7 ml ONCE PRN Administration Interaction Checking Lisinopril 10 mg 08/31/19 09:00 08/31/19 08:17 Zestril PO 09/30/19 08:59 10 mg QAM AALIYAH Administration Pantoprazole Sodium 40 mg 08/30/19 21:00 09/01/19 08:08 Protonix PO 09/29/19 20:59 40 mg BID AALIYAH Administration Rosuvastatin Calcium 40 mg 08/31/19 09:00 09/01/19 08:07 Crestor PO 09/30/19 08:59 40 mg QAM AALIYAH Administration Sotalol HCl 160 mg 08/30/19 21:00 09/01/19 08:07 Betapace PO 09/29/19 20:59 160 mg BID AALIYAH Administration Past Medical History Medical History Anxiety Atrial fibrillation DX 2012 HX OF CARDIOVERSION X 2 LAST ATRIAL FIB WAS ABOUT 5 YEARS AGO BPH (benign prostatic hyperplasia) CAD (coronary artery disease) Cardiac murmur follows with DR. ARREDONDO LAST ECHO 10/2017 Chronic constipation Esophageal dysphagia GERD (gastroesophageal reflux disease) History of cardioversion X2 HTN (hypertension) Neurogenic bladder (Chronic) Neuropathic foot ulcer Neuropathy Osteoarthritis Paroxysmal atrial fibrillation Spina bifida Past Surgical History Surgical History History of right cataract surgery Hx of arthroscopic knee surgery LEFT Hx of colonoscopy Hx of esophagogastroduodenoscopy Hx of foot surgery RIGHT - STRAIGHTEN ANKLE AND UNSUCCESSFUL Hx of heart artery stent 2008 X2 STENT (EDILMA) AT [facility] FOLLOW WITH DR ARREDONDO Hx of spinal surgery 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 Anaerobic Blood Culture - Preliminary No growth in Anaerobic bottle after 24 hours. 08/30/19 17:34 Aerobic Blood Culture - Preliminary Blood No growth in Aerobic bottle after 24 hours. Anaerobic Blood Culture - Preliminary No growth in Anaerobic bottle after 24 hours. Echocardiogram EF: 55-60 Other Findings: + LVH (moderate) and + diastolic dysfunction (grade 1) Valvular Disease: + MR moderate MR
[2019-09-01] MEDS ORDERED: MIDAZOLAM HCL 1 MG/ML 2ML VIAL ONE ×2 (14:08→15:00)
[2019-09-01] MEDS ORDERED: fentaNYL citrate 100 MCG/2 ML VIAL ONE ×2 (14:08→15:20)
[2019-09-01] MEDS ORDERED: BUPIVACAINE 0.5 % 5 MG/1 ML MPF 30ML VIAL ONE (14:44)
[2019-09-01] MEDS ORDERED: BACITRACIN INJ 50,000 UNIT VIAL ONE (14:44)
--- NOTE | 2019-09-01 14:47 | History & Physical Bridge Note ---
Date of Service September 01, 2019 History & Physical Bridge Note I have examined the patient, reviewed the History & Physical and in the interval since the performance of the History & Physical I have noted the following changes of clinical significance: Patient will require left foot fifth toe amputation due to osteomyelitis. All potential risks and benefits related to the patient's care were considered regarding the current Covid-19 pandemic. The patient's current condition is deemed as urgent necessitating surgery now and performing surgery at this time will prevent further morbidity and likely worsening of the patient's condition including tissue necrosis, DVT, PE, skin ulceration, osteomyelitis, worsening cellulitis, sepsis, loss of limb or loss of life. The patient will be scheduled for surgery now without any further waiting period as this condition is urgent and indicated.
[2019-09-01] MEDS ORDERED: ONDANSETRON INJ 2 MG/ML 2 ML VIAL ONE (15:13)
[2019-09-01] MEDS ORDERED: PROPOFOL IV EMULSION 10 MG/ML 20 ML VIAL IV ONE (15:13)
[2019-09-01] MEDS ORDERED: ePHEDrine sulfate 50 MG/ML AMP ONE (15:39)
--- NOTE | 2019-09-01 15:49 | Post Operative Brief Note ---
Immediate Post Op Note v1 Date of Surgery September 01, 2019 Pre & Post Diagnosis Operation Date: 09/01/19 12:05 Pre-Op Diagnosis: Left foot fifth toe osteomyelitis, left foot fifth metatarsal head exostosis, neuropathic ulcer fifth toe, LEFT LEG CELLULITIS Post-Op Diagnosis: Left foot fifth toe osteomyelitis, left foot fifth metatarsal head exostosis, abscess left fifth toe, neuropathic ulcer fifth toe, LEFT LEG CELLULITIS I identified the patient and participated in the time-out.: Yes Procedure Operation Date: 09/01/19 12:05 Actual Procedures p Left 5th Toe Amputation, exostectomy fifth metatarsal head, evacuation abscess left fifth toe (Left) - Anthony Carvajal DO Surgeon Anthony Carvajal DO Scanning Clerk Roverto Montez PA-C Estimated Blood Loss 2 Findings Consistent with Post-Op Diagnosis Specimens Aerobic anaerobic Gram stain abscess left fifth toe, bone and tissue left fifth toe amputation Anesthesia Type MAC Regional Complications none Disposition Accompanied Patient To Recovery: No Disposition: Recovery Room
--- NOTE | 2019-09-01 16:38 | Anesthesiology Progress Note ---
Date of Service September 01, 2019 Anesthesia Post Procedure Vital Signs Vital Signs: Temp Pulse Pulse Pulse Resp BP BP 09/01/19 16:35 59 L 12 91/64 L 09/01/19 16:20 60 13 91/56 L 09/01/19 16:10 36.2 C L 65 21 91/57 L 09/01/19 16:00 64 12 86/56 L 09/01/19 15:54 36.6 C 64 13 80/55 L 09/01/19 13:54 36.6 C 59 L 20 108/64 09/01/19 11:42 36.9 C 64 18 92/56 L 09/01/19 08:08 36.8 C 62 18 102/68 09/01/19 08:05 65 109/73 09/01/19 07:24 59 L 09/01/19 04:00 36.7 C 64 18 103/66 09/01/19 03:01 60 08/31/19 22:30 36.7 C 63 18 98/62 L 08/31/19 19:36 36.8 C 71 18 92/57 L 08/31/19 17:22 103/65 08/31/19 17:21 64 Pulse Ox 09/01/19 16:35 92 09/01/19 16:20 99 09/01/19 16:10 99 09/01/19 16:00 99 09/01/19 15:54 98 09/01/19 13:54 98 09/01/19 11:42 95 09/01/19 08:08 97 09/01/19 08:05 09/01/19 07:24 09/01/19 04:00 99 09/01/19 03:01 08/31/19 22:30 98 08/31/19 19:36 96 08/31/19 17:22 08/31/19 17:21 Transfer of Care Handoff Completed per policy Notes Mental Status: alert / awake / arousable Patient Amnestic to Procedure: Yes Nausea / Vomiting: adequately controlled Pain: adequately controlled Airway Patency, RR, SpO2: stable & adequate BP & HR: stable & adequate Hydration State: stable & adequate Anesthetic Complications: no major complications apparent and Pt Satisfied with anesthetic care Notes: The patient is awake and stable.
[2019-09-01] MEDS ORDERED: HYDROmorphone INJ 0.5 MG/0.5 ML SYR IV PRN (16:48)
[2019-09-01] MEDS ORDERED: NALOXONE HCL 0.4 MG/1 ML VIAL/CARP IV PRN (16:48)
[2019-09-01] MEDS ORDERED: bisacodyL 10 MG SUPP PR PRN (16:48)
[2019-09-01] MEDS ORDERED: MAGNESIUM HYDROXIDE SUSP 30 ML UDC PO PRN (16:48)
[2019-09-01] MEDS ORDERED: METOCLOPRAMIDE HCL INJ 5 MG/ML 2 ML VIAL IV PRN (16:48)
[2019-09-01] MEDS: cefTRIAXone SODIUM 2,000 MG in DEXTROSE 5% 50 ML IV SCH (17:21)
[2019-09-01] MEDS: SODIUM CHLORIDE 0.9% 1000ML 1,000 ML IV SCH (17:26)
--- NOTE | 2019-09-01 17:43 | Operative Report (OR) ---
DATE OF OPERATION: 09/01/2019 PREOPERATIVE DIAGNOSES: 1. Left fifth toe osteomyelitis. 2. Left foot fifth metatarsal head exostosis. 3. Neuropathic ulcer of fifth toe. 4. Left leg cellulitis. POSTOPERATIVE DIAGNOSES: 1. Left foot fifth toe osteomyelitis. 2. Left foot fifth metatarsal head exostosis. 3. Abscess of left fifth toe. 4. Neuropathic ulcer of fifth toe. 5. Left leg cellulitis. PROCEDURES PERFORMED: 1. Left fifth toe amputation. 2. Exostectomy of the fifth metatarsal head. 3. Evacuation of abscess, left fifth toe. SURGEON: Anthony Carvajal DO. DRYCLEANER: Roverto Montez PA-C who was present for patient positioning, sterile prep and drape, management of retractors and instruments. He was present through the critical portions of the case including wound closure, application of sterile dressing and transport of the patient to recovery. ANESTHESIA: MAC, regional. SPECIMENS: Left fifth toe bone and tissue status post amputation and aerobic, anaerobic, Gram stain - abscess, left fifth toe. DRAINS: None. COMPLICATIONS: None. BLOOD LOSS: 2 mL. 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 He has neuropathy of bilateral feet due to congenital spina bifida. He first noted pain, swelling, redness of the left fifth toe with an ulcer which formed. He was then admitted to the medicine service, evaluated and an MRI demonstrating osteomyelitis of the proximal phalanx of the left fifth toe. Orthopedics was consulted. He was seen and examined and then scheduled for surgery as indicated. The patient's care was deemed urgent specifically with regard to the Covid-19 pandemic, the patient's condition warrants surgery now rather than waiting for any period of time due to the risk of worsening osteomyelitis, cellulitis, potential for amputation of the left foot and lower limb, possibility of sepsis, possibility of . The patient was then scheduled as indicated. All potential risks, benefits, complications, alternatives, rehab potential for incomplete relief of symptoms, need for further surgery, DVT, PE, , persistent pain, swelling, scarring, weakness, neurovascular injury, wound complications, possibility of further amputation, possibility of acquiring pneumonia were discussed with the patient. The patient decided to proceed with the procedure as indicated. DESCRIPTION OF PROCEDURE: The patient was taken to the operative suite, placed supine on the operating table. After review of consent and identification of proper operative site, the patient was sedated. Anesthesiologist performed a regional nerve block in the left lower extremity and a tourniquet was applied high on the thigh; however, it was not used during the case. Left lower extremity was then sterilely prepped and draped in usual fashion, elevated and partially exsanguinated with an Esmarch bandage and Esmarch tourniquet was applied over sterile surgical towel at the level of the ankle. Next, a 15 blade scalpel was used to debride the ulceration over the lateral aspect of the fifth toe at the PIP joint. Once the hypertrophic rind of tissue was then sharply excised, there was noted to be purulence, milky in character and thick. This was then cultured. The abscess was then evacuated using a rongeur. The bone was then probed with a forceps and noted to be significantly softened. The probe passed easily through the bone consistent with osteomyelitis. Next, amputation then proceeded with a circumferential 15 blade scalpel incision at the toe over roughly the mid shaft of the proximal phalanx to preserve enough soft tissue for a tension free closure. Next, with the 15 blade scalpel, an incision was made through the skin and then through the extensor tendon and through the joint capsule and periosteum down to bone. This was then carried medially and laterally and then a slightly longer plantar flap was fashioned from the residual tissue with a 15 blade scalpel. Next, the middle phalanx and distal phalanx were then amputated and passed off and held for specimen. Next, the soft tissue was then undermined at the level of the periosteum to preserve the soft tissue sleeve in its entirety. The extensor tendon was then placed on traction, cut with a 15 blade scalpel and allowed to retract in the wound. Same was performed for the flexor tendon, which was placed on traction with a forceps, transected with a 15 blade scalpel and allowed to retract into the foot. Next, copious lavage was performed with sterile normal saline with bacitracin until clear and then the residual flap tissue around the fifth toe was then carefully elevated with Tia rakes and then the proximal phalanx was then resected in its entirety with disarticulation of the fifth metatarsophalangeal joint with a 15 blade scalpel. Next, the fifth metatarsal head was visualized and palpated and noted to have exostoses present as evidenced on the MRI as debris. Exostectomy was then performed of the fifth metatarsal head with denuding of the articular cartilage to prevent a hematoma or seroma. Next, this was irrigated once again with sterile normal saline with bacitracin until clear. The contour of the foot and the metatarsal head was noted to be stable for weightbearing. No loose bodies or particulate debris was noted. Next, the residual tissue was then fashioned in order to have a tension free closure without dog ears with interrupted 3-0 nylon sutures with horizontal mattress and simple sutures performed. A tension-free closure was completed and then a sterile compressive dressing was applied consisting of Xeroform gauze, sterile 4 x 4's, cast padding, ABD and Dutch wrap was applied. The tourniquet was released at the ankle. The tourniquet was removed from the proximal thigh, which was not used during the case and the patient was then awakened, active hyperemia was noted at the ankle and foot as anticipated. The patient was then transferred to the recovery room in stable condition. I attest to the content of the Intraoperative Record and any orders documented therein. Any exception s are noted below.
[2019-09-01] MEDS: SENNA 8.6 MG TAB PO SCH ×2 (20:36→20:46)
[2019-09-01] MEDS: GABAPENTIN 300 MG CAP PO SCH (20:37)
[2019-09-01] MEDS: DULOXETINE HCL 60 MG CAP PO SCH (20:39)
[2019-09-01] MEDS: DOCUSATE SODIUM 100 MG CAP PO SCH ×2 (20:39→20:46)
[2019-09-02] MEDS: TRAMADOL HCL 50 MG TABLET PO PRN ×4 (02:08→21:01)
[2019-09-02] MEDS: SODIUM CHLORIDE 0.9% 1000ML 1,000 ML IV SCH (02:08)
[2019-09-02 06:36] LABS: Hematocrit (blood only) 37.1 % (42-52); Hemoglobin 12.6 g/dL (14.0-18.0); Mean Corpuscular Hemoglobin 31.6 pg (25-34); Mean Platelet Volume 10.2 fL (7.4-10.4); Platelet Count 246 K/uL (130-400); RDW Coefficient of Variation 12.7 % (11.5-14.5); RDW Standard Deviation 43.1 fL (36.4-46.3); Red Blood Count 3.99 M/uL (4.7-6.1); White Blood Count 9.57 K/uL (4.8-10.8)
[2019-09-02 07:07] LABS: BUN Creatinine Ratio 16.3 (10-20); Calcium 8.6 mg/dl (8.5-10.1); Creatinine Clr Calc Pharmacy 84.3 ml/min; Est GFR (African American) 109.8; Est GFR (Non-African American) 94.8
[2019-09-02] MEDS: ASPIRIN 81 MG ECTAB PO SCH (08:32)
[2019-09-02] MEDS: PANTOprazole 40 MG TAB PO SCH ×2 (08:32→20:33)
[2019-09-02] MEDS: SOTALOL HCL 80 MG TAB PO SCH ×2 (08:32→20:33)
[2019-09-02] MEDS: ROSUVASTATIN CALCIUM 20 MG TAB PO SCH (08:33)
[2019-09-02] MEDS: MULTIVITAMIN TAB PO SCH (08:34)
[2019-09-02] MEDS: ENOXAPARIN INJ 40 MG/0.4 ML SYR SQ SCH (08:34)
[2019-09-02] MEDS: DOCUSATE SODIUM 100 MG CAP PO SCH ×2 (08:38→20:33)
--- NOTE | 2019-09-02 09:22 | Orthopedic Progress Note ---
Date of Service September 02, 2019 Assessment & Plan (1) Neuropathic foot ulcer: 64 yo male stable POD #1 s/p left 5th toe amp 1. Med management 2. DVT prophylaxis- SCDs 3. PT/OT 4. D/C planning-dressing change tomorrow Pt. seen and examined, agree with above. Admission and Anticipated Discharge Date Admission Date: August 30, 2019 Subjective Pt without complaints, denies pain, sitting at computer doing work Physical Exam Physical Exam: Surgical dressing in place, will change tomorrow Results & Data ([facility]) Vital Signs (Past 12 Hours) Vital Signs Temp Pulse Pulse Pulse Resp BP BP 09/02/19 07:45 36.6 C 79 17 108/61 09/02/19 07:21 74 09/02/19 04:00 36.8 C 71 18 99/62 L 09/01/19 23:40 36.8 C 57 L 18 95/61 L 09/01/19 22:20 65 Pulse Ox 09/02/19 07:45 99 09/02/19 07:21 09/02/19 04:00 95 09/01/19 23:40 96 09/01/19 22:20 Laboratory Results 09/02/19 09/02/19 Range/Units 05:56 05:56 WBC 9.57 (4.8-10.8) K/uL RBC 3.99 L (4.7-6.1) M/uL Hgb 12.6 L (14.0-18.0) g/dL Hct 37.1 L (42-52) % MCV 93.0 (80-100) fL MCH 31.6 (25-34) pg MCHC 34.0 (32-36) g/dL RDW Std Deviation 43.1 (36.4-46.3) fL RDW Coeff of Elan 12.7 (11.5-14.5) % Plt Count 246 (130-400) K/uL MPV 10.2 (7.4-10.4) fL Sodium 139 (136-145) mmol/L Potassium 4.0 (3.5-5.1) mmol/L Chloride 107 (98-107) mmol/L Carbon Dioxide 28 (21-32) mmol/L Anion Gap 3.0 (3-11) BUN 13 (7-18) mg/dl Creatinine 0.82 (0.6-1.4) mg/dl Est Cr Clr Drug Dosing 84.3 ml/min Est GFR ( Amer) 109.8 Est GFR (Non-Af Amer) 94.8 BUN/Creatinine Ratio 16.3 (10-20) Glucose 89 (70-99) mg/dl Calcium 8.6 (8.5-10.1) mg/dl
--- NOTE | 2019-09-02 09:37 | Anesthesiology Progress Note ---
Date of Service September 02, 2019 Anesthesia Post Procedure Vital Signs Vital Signs: Temp Pulse Pulse Pulse Resp BP BP 09/02/19 07:45 36.6 C 79 17 108/61 09/02/19 07:21 74 09/02/19 04:00 36.8 C 71 18 99/62 L 09/01/19 23:40 36.8 C 57 L 18 95/61 L 09/01/19 22:20 65 09/01/19 20:00 36.5 C 58 L 16 100/60 09/01/19 19:29 36.4 C L 67 16 92/61 L 09/01/19 17:37 56 L 09/01/19 17:23 36.5 C 70 19 99/63 L 09/01/19 16:50 09/01/19 16:49 36.9 C 63 18 99/63 L 09/01/19 16:35 59 L 12 91/64 L 09/01/19 16:20 60 13 91/56 L 09/01/19 16:10 36.2 C L 65 21 91/57 L 09/01/19 16:00 64 12 86/56 L 09/01/19 15:54 36.6 C 64 13 80/55 L 09/01/19 13:54 36.6 C 59 L 20 108/64 09/01/19 11:42 36.9 C 64 18 92/56 L Pulse Ox Pulse Ox 09/02/19 07:45 99 09/02/19 07:21 09/02/19 04:00 95 09/01/19 23:40 96 09/01/19 22:20 09/01/19 20:00 98 09/01/19 19:29 96 09/01/19 17:37 09/01/19 17:23 96 09/01/19 16:50 98 09/01/19 16:49 98 09/01/19 16:35 92 09/01/19 16:20 99 09/01/19 16:10 99 09/01/19 16:00 99 09/01/19 15:54 98 09/01/19 13:54 98 09/01/19 11:42 95 Pain Intensity Left 5th Digit Toe: Pain Intensity: 5 Notes Mental Status: alert / awake / arousable and participated in evaluation Nausea / Vomiting: adequately controlled Pain: adequately controlled Airway Patency, RR, SpO2: stable & adequate BP & HR: stable & adequate Hydration State: stable & adequate Neuraxial Anesthesia: sensory block resolved Anesthetic Complications: no major complications apparent and Pt Satisfied with anesthetic care
--- NOTE | 2019-09-02 09:48 | Hospitalist Progress Note ---
Date of Service September 02, 2019 Assessment & Plan (1) Neuropathic foot ulcer: (2) Cellulitis: Left 5th metatarsal osteomyelitis S/P left 5th toe amputation on 09/01/2019 64 y/o M with PMH paroxysmal atrial fibrillation, CAD s/p PCI to LAD in 2010, mitral regurgitation, HTN, HLD, spina bifida s/p repair, neuropathy, h/o ETOH abuse quit in 2017 seen as direct admission for left toe ulcer and purulent cellulitis. Seen in wound clinic on 08/30/19 and had area debrided and wound culture obtained prior to hospital admission XR of left foot does report thin walled cyst vs early and or developing osteomyelitis of 5th metatarsal. MRI reports highly suspicious for osteomyelitis involving the distal shaft and head of the proximal phalanx of the left fifth toe. Wound culture growing Group G beta strep Blood culture still negative Left 5th toe culture pending ID recommendations noted Will get PT/OT reeval now that patient is postop (3) Hypokalemia: K: 2.9 on admission Repleted K is 4.0 today Monitor (4) Paroxysmal atrial fibrillation: Rate controlled Continue sotalol (5) Coronary artery disease: S/P PCI LAD in 2010 Continue aspirin, rosuvastatin (6) HTN (hypertension): Home lisinopril currently on hold due to an episode of asymptomatic hypotension BP was low yesterday's afternoon and evening. Likely due to surgery/anesthesia BP normal. Continue to monitor (7) Neuropathy: Continue gabapentin Counselled patient on proper foot care considering his neuropathy. Stated he has not been using his custom shoes recently as his legs has been getting weaker and shoes felt heavier Continue to see orthotics outpatient for reevaluation of custom shoes Get PT/OT (8) Spina bifida: Fall precautions Continue self cath as needed for incontinence DVT Prophylaxis: Lovenox Admission and Anticipated Discharge Date Admission Date: August 30, 2019 Subjective Patient seen and examined Had Left 5th toe amputation yesterday Reports pain is well controlled Denied any fevers, chills, nausea, vomiting. Physical Exam Constitutional: well developed and well nourished; no acute distress Eyes: PERRL, conjunctivae normal, anicteric sclerae ENMT: external ear and nose normal, oropharynx normal Respiratory: normal respiratory effort, lungs clear to auscultation Cardiovascular: RRR, no murmur, no edema Gastrointestinal (Abdomen): normal bowel sounds, soft, nontender, no hepatosplenomegaly Musculoskeletal: Clean dressing over left foot Erythema around ankle Neurologic: PERRL, EOMI, accommodation nl, no face palsy, no dysarthria moves all extremities Psychiatric: A+Ox3, euthymic affect Results & Data Results & Data ([facility]) Vital Signs (Past 12 Hours) Vital Signs Temp Pulse Pulse Pulse Resp BP BP 09/02/19 07:45 36.6 C 79 17 108/61 09/02/19 07:21 74 09/02/19 04:00 36.8 C 71 18 99/62 L 09/01/19 23:40 36.8 C 57 L 18 95/61 L 09/01/19 22:20 65 Pulse Ox 09/02/19 07:45 99 09/02/19 07:21 09/02/19 04:00 95 09/01/19 23:40 96 09/01/19 22:20 Laboratory Results Laboratory Results - last 24 hr 09/02/19 09/02/19 05:56 05:56 WBC 9.57 RBC 3.99 L Hgb 12.6 L Hct 37.1 L MCV 93.0 MCH 31.6 MCHC 34.0 RDW Std Deviation 43.1 RDW Coeff of Elan 12.7 Plt Count 246 MPV 10.2 Sodium 139 Potassium 4.0 Chloride 107 Carbon Dioxide 28 Anion Gap 3.0 BUN 13 Creatinine 0.82 Est Cr Clr Drug Dosing 84.3 Est GFR ( Amer) 109.8 Est GFR (Non-Af Amer) 94.8 BUN/Creatinine Ratio 16.3 Glucose 89 Calcium 8.6
[2019-09-02] MEDS: cefTRIAXone SODIUM 2,000 MG in DEXTROSE 5% 50 ML IV SCH (17:17)
[2019-09-02] MEDS: DULOXETINE HCL 60 MG CAP PO SCH (20:33)
[2019-09-02] MEDS: SENNA 8.6 MG TAB PO SCH (20:33)
[2019-09-02] MEDS: GABAPENTIN 300 MG CAP PO SCH (20:33)
[2019-09-03 06:51] LABS: Hematocrit (blood only) 36.8 % (42-52); Hemoglobin 12.7 g/dL (14.0-18.0); Mean Corpuscular Hemoglobin 31.4 pg (25-34); Mean Corpuscular Hgb Conc 34.5 g/dL (32-36); Mean Corpuscular Volume 90.9 fL (80-100); Mean Platelet Volume 9.6 fL (7.4-10.4); Platelet Count 216 K/uL (130-400); RDW Coefficient of Variation 12.6 % (11.5-14.5); RDW Standard Deviation 41.6 fL (36.4-46.3); Red Blood Count 4.05 M/uL (4.7-6.1); White Blood Count 6.04 K/uL (4.8-10.8)
[2019-09-03 07:29] LABS: BUN Creatinine Ratio 15.6 (10-20); Calcium 9.1 mg/dl (8.5-10.1); Creatinine Clr Calc Pharmacy 83.3 ml/min; Est GFR (African American) 109.3; Est GFR (Non-African American) 94.3
[2019-09-03] MEDS: SOTALOL HCL 80 MG TAB PO SCH ×2 (08:12→21:01)
[2019-09-03] MEDS: PANTOprazole 40 MG TAB PO SCH ×2 (08:13→20:59)
[2019-09-03] MEDS: ASPIRIN 81 MG ECTAB PO SCH (08:13)
[2019-09-03] MEDS: ROSUVASTATIN CALCIUM 20 MG TAB PO SCH (08:13)
[2019-09-03] MEDS: MULTIVITAMIN TAB PO SCH (08:14)
[2019-09-03] MEDS: ENOXAPARIN INJ 40 MG/0.4 ML SYR SQ SCH (08:14)
[2019-09-03] MEDS: DOCUSATE SODIUM 100 MG CAP PO SCH ×2 (08:15→21:00)
[2019-09-03] MEDS: TRAMADOL HCL 50 MG TABLET PO PRN ×3 (08:25→21:03)
--- NOTE | 2019-09-03 09:32 | Orthopedic Progress Note ---
Date of Service September 03, 2019 Assessment & Plan (1) Neuropathic foot ulcer: 64 yo male stable POD #2 s/p left 5th toe amputation 1. Med management- discussed with hospitalist, abx per ID 2. DVT prophylaxis- SCDs 3. PT/OT 4. D/C planning- home w/ HH today/tomorrow Admission and Anticipated Discharge Date Admission Date: August 30, 2019 Subjective Pt resting in bed, denies complaints, no pain Physical Exam Physical Exam: Dressing changed, wound C/D/I, erythema improved per pt, clean dressing applied Results & Data ([facility]) Vital Signs (Past 12 Hours) Vital Signs Temp Pulse Pulse Resp BP Pulse Ox 09/03/19 07:30 36.6 C 62 18 110/75 98 09/03/19 07:11 67 09/03/19 03:21 36.5 C 64 18 114/71 96 09/03/19 00:57 80 09/02/19 23:33 36.6 C 72 18 120/74 97
--- NOTE | 2019-09-03 09:57 | Hospitalist Progress Note ---
Date of Service September 03, 2019 Assessment & Plan (1) Neuropathic foot ulcer: (2) Cellulitis: Left 5th metatarsal osteomyelitis S/P left 5th toe amputation on 09/01/2019 64 y/o M with PMH paroxysmal atrial fibrillation, CAD s/p PCI to LAD in 2010, mitral regurgitation, HTN, HLD, spina bifida s/p repair, neuropathy, h/o ETOH abuse quit in 2017 seen as direct admission for left toe ulcer and purulent cellulitis. Seen in wound clinic on 08/30/19 and had area debrided and wound culture obtained prior to hospital admission XR of left foot does report thin walled cyst vs early and or developing osteomyelitis of 5th metatarsal. MRI reports highly suspicious for osteomyelitis involving the distal shaft and head of the proximal phalanx of the left fifth toe. Wound culture growing Group G beta strep Blood culture still negative Left 5th toe culture growing Group G beta strep ID recommendations noted Awaiting get PT/OT reeval post surgery Plan for discharge tomorrow with . (3) Hypokalemia: K: 2.9 on admission Repleted K is 4.0 today Monitor (4) Paroxysmal atrial fibrillation: Rate controlled Continue sotalol (5) Coronary artery disease: S/P PCI LAD in 2010 Continue aspirin, rosuvastatin (6) HTN (hypertension): Home lisinopril currently on hold due to an episode of asymptomatic hypotension BP still runs low normal If continues at this rate, will continue to hold lisinopril on discharge (7) Neuropathy: Continue gabapentin Counselled patient on proper foot care considering his neuropathy. Stated he has not been using his custom shoes recently as his legs has been getting weaker and shoes felt heavier Continue to see orthotics outpatient for reevaluation of custom shoes (8) Spina bifida: Fall precautions Continue self cath as needed for incontinence DVT Prophylaxis: Lovenox Admission and Anticipated Discharge Date Admission Date: August 30, 2019 Subjective Patient seen and examined Reports good pain control at surgical site Denied any other symptom Physical Exam Constitutional: well developed and well nourished; no acute distress Eyes: PERRL, conjunctivae normal, anicteric sclerae ENMT: external ear and nose normal, oropharynx normal Respiratory: normal respiratory effort, lungs clear to auscultation Cardiovascular: RRR, no murmur, no edema Gastrointestinal (Abdomen): normal bowel sounds, soft, nontender, no hepatosplenomegaly Musculoskeletal: Clean dressing over left foot. Just dressed by orthopedic team Erythema around ankle Neurologic: PERRL, EOMI, accommodation nl, no face palsy, no dysarthria moves all extremities Psychiatric: A+Ox3, euthymic affect Results & Data Results & Data ([place]) Vital Signs (Past 12 Hours) Vital Signs Temp Pulse Pulse Resp BP Pulse Ox 09/03/19 07:30 36.6 C 62 18 110/75 98 09/03/19 07:11 67 09/03/19 03:21 36.5 C 64 18 114/71 96 09/03/19 00:57 80 09/02/19 23:33 36.6 C 72 18 120/74 97 Laboratory Results Laboratory Results - last 24 hr 09/03/19 09/03/19 06:38 06:38 WBC 6.04 RBC 4.05 L Hgb 12.7 L Hct 36.8 L MCV 90.9 MCH 31.4 MCHC 34.5 RDW Std Deviation 41.6 RDW Coeff of Elan 12.6 Plt Count 216 MPV 9.6 Sodium 140 Potassium 4.0 Chloride 106 Carbon Dioxide 28 Anion Gap 6.0 BUN 13 Creatinine 0.83 Est Cr Clr Drug Dosing 83.3 Est GFR ( Amer) 109.3 Est GFR (Non-Af Amer) 94.3 BUN/Creatinine Ratio 15.6 Glucose 93 Calcium 9.1
[2019-09-03] MEDS: cefTRIAXone SODIUM 2,000 MG in DEXTROSE 5% 50 ML IV SCH (17:18)
[2019-09-03] MEDS: GABAPENTIN 300 MG CAP PO SCH (20:59)
[2019-09-03] MEDS: DULOXETINE HCL 60 MG CAP PO SCH (20:59)
[2019-09-03] MEDS: SENNA 8.6 MG TAB PO SCH (21:00)
[2019-09-04] MEDS: ENOXAPARIN INJ 40 MG/0.4 ML SYR SQ SCH (08:03)
[2019-09-04] MEDS: SOTALOL HCL 80 MG TAB PO SCH (08:05)
[2019-09-04] MEDS: MULTIVITAMIN TAB PO SCH (08:05)
[2019-09-04] MEDS: PANTOprazole 40 MG TAB PO SCH (08:05)
[2019-09-04] MEDS: DOCUSATE SODIUM 100 MG CAP PO SCH (08:06)
[2019-09-04] MEDS: ROSUVASTATIN CALCIUM 20 MG TAB PO SCH (08:06)
[2019-09-04] MEDS: ASPIRIN 81 MG ECTAB PO SCH (08:06)
--- NOTE | 2019-09-04 11:54 | Discharge Summary ---
Date of Service September 04, 2019 Admission HPI Per Admitting Provider Pt is 64 y/o M with PMH paroxysmal atrial fibrillation, CAD s/p PCI to LAD in 2010, mitral regurgitation, HTN, HLD, spina bifida s/p repair, neuropathy, h/o ETOH abuse quit in 2017 seen as direct admission for left toe ulcer and cellulitis. Pt reports h/o callus to dorsal left 5th toe, however 4 days ago area appeared like a scab and pt states removed it. Since has noticed some purulent discharge. He states 3 days ago felt feverish and lethargic. Did not take temperature at the time. Reports yesterday feeling better however noticed redness to left 5th toe and foot with rapid increased redness of foot today. Pt seen in wound clinic today and had area debrided and wound culture obtained. Pt reports chronic SOB with exertion since his PCI, denies any increased SOB. Has chronic constipation. Has to self cath several times a day. Pt reports has orthotic shoes. Has not been on any recent antibiotics. Denies diaphoresis, N/V/D, LIU, dizziness, syncope, vision changes, neck pain, CP, orthopnea, palpitations, cough, choking, otalgia, rhinorrhea, abdominal pain, extremity edema, other rashes, dysuria, hematuria. Denies h/o MRSA. Admission Exam Per Admitting Provider Physical Exam: General: no distress, WDWN Head: normocephalic, atraumatic Eyes: PERRL, EOM's intact, conjunctiva non-injected, anicteric ENT: normal inspection external ears, nose, mucous membranes moist Neck: supple, trachea midline, non-tender Lungs: clear, no respiratory distress, no wheezing/rhonchi/rales CV: RRR, no murmur, no pretibial edema Abd: normal BS, soft, non-tender Ext: no calf tenderness; left foot: left 5th toe dorsal aspect with open area with surrounding erythema with erythema and warmth extending to dorsal foot and slightly to anterior ankle. No purulent discharge at this time (area was debrided today at wound clinic) Neuro: A&O x 3, no focal deficits noted, normal affect Skin: warm, dry Principal Diagnosis Left 5th toe osteomyelitis s/p Toe amputation Left leg cellulitis Discharge Exam Constitutional well developed and well nourished; no acute distress Eyes PERRL, conjunctivae normal, anicteric sclerae ENMT external ear and nose normal, oropharynx normal Respiratory normal respiratory effort, lungs clear to auscultation Cardiovascular RRR, no murmur, no edema Gastrointestinal (Abdomen) normal bowel sounds, soft, nontender, no hepatosplenomegaly Musculoskeletal Clean dressing over left foot Erythema around ankle and foot much improved Neurologic PERRL, EOMI, accommodation nl, no face palsy, no dysarthria moves all extremities Psychiatric A+Ox3, euthymic affect Discharge Data Allergies Allergy/AdvReac Type Severity Reaction Status Date / Time Bactrim Allergy Intermediate RASH Verified 11/14/16 02:28 sulfamethoxazole Allergy Intermediate RASH Verified 09/01/19 13:53 trimethoprim Allergy Intermediate RASH Verified 09/01/19 13:53 Consultations 08/31/19 08:00 Consult Orthopedic Surgery Routine 08/31/19 15:03 Consult Infectious Diseases Routine 09/01/19 16:48 Consult Case Management - Discharge Planning Routine Procedures Performed Operation Date: 09/01/19 12:05 Actual Procedures p Left 5th Toe Amputation(Left) - Anthony Carvajal DO Ordered Studies 08/31/19 09:31 MR foot LT wo/w con Urgent FINDINGS: T2 hyperintense, T1 hypointense signal involving the distal shaft and head of the proximal phalanx of the fifth toe. There is surrounding soft tissue edema. There is associated enhancement at the head of the proximal phalanx of the fifth toe. There is also surrounding soft tissue enhancement. Therefore, these findings are highly suspicious for osteomyelitis with surrounding cellulitis. No loculated fluid collections to suggest an abscess. Dorsal subcutaneous edema throughout the forefoot. No fracture or dislocation. The flexor and extensor tendons are intact. IMPRESSION: Above findings are highly suspicious for osteomyelitis involving the distal shaft and head of the proximal phalanx of the left fifth toe. Hospital Course (1) Neuropathic foot ulcer: (2) Cellulitis: Left 5th metatarsal osteomyelitis S/P left 5th toe amputation on 09/01/2019 64 y/o M with PMH paroxysmal atrial fibrillation, CAD s/p PCI to LAD in 2010, mitral regurgitation, HTN, HLD, spina bifida s/p repair, neuropathy, h/o ETOH abuse quit in 2017 seen as direct admission for left toe ulcer and purulent cellulitis. Seen in wound clinic on 08/30/19 and had area debrided and wound culture obtained prior to hospital admission XR of left foot does report thin walled cyst vs early and or developing osteomyelitis of 5th metatarsal. MRI reports highly suspicious for osteomyelitis involving the distal shaft and head of the proximal phalanx of the left fifth toe. Wound culture growing Group G beta strep Blood culture negative Left 5th toe culture growing Group G beta strep ID recommended po Augmentin for 4 weeks Discharged with home health for wound dressing To follow up ortho Script sent for augmentin for another 3 weeks to complete therapy (3) Hypokalemia: K: 2.9 on admission Repleted and resolved (4) Paroxysmal atrial fibrillation: Rate controlled Continue sotalol (5) Coronary artery disease: S/P PCI LAD in 2010 Continue aspirin, rosuvastatin (6) HTN (hypertension): Home lisinopril was held due to an episode of asymptomatic hypotension BP has been normal to low normal Discharge on half home dose. Lisinopril reduced to 5mg He also has Bp device at home. Advised to keep a bp log and follow up with PCP (7) Neuropathy: Continue gabapentin Counselled patient on proper foot care considering his neuropathy. Stated he has not been using his custom shoes recently as his legs has been getting weaker and shoes felt heavier Continue to see orthotics outpatient for reevaluation of custom shoes (8) Spina bifida: Fall precautions and foot care discussed Total Time Total Time Spent Total Time Spent (In Minutes): 35 Total Time Includes: Examination of the Patient, Discharge Planning and Medication Reconciliation Discharge Plan Discharge Items Patient Disposition: Home - Home Health Services Reason For Visit: LEFT FOOT ULCER, LEFT LEG CELLULITIS Discharge Diagnosis: Left 5th toe osteomyelitis s/p Toe amputation Left leg cellulitis Activity: Resume your previous activity Non-emergency contact: Primary Care Provider and Surgeon Call non-emergency contact if: you have any medication questions and your symptoms worsen Follow-up/Referrals: Kodi Cronin MD [Primary Care Provider] - 09/08/19 11:00 am Diet: Heart Healthy Addtl Attending Provider Instructions: Mr Harp. You came to the hospital for left foot ulcer and redness. You were evaluated and found to have cellulitis of the left foot as well as osteomyelitis (infection to the bone) of left 5th toe. You had surgery with removal of left 5th toe. You are being discharged on antibiotics for another 3 weeks to complete treatment. Please take medications as prescribed. Please follow up with Orthopedic surgeon. Your blood pressure was also low during your hospitalization. Your blood pressure medication (lisinopril) was reduced from 10mg to 5mg daily for now. Please check your blood pressure at home as we discussed and follow up with your Primary Doctor to continue management. It was a pleasure taking care of you. Addtl [facility] Provider Instructions: Daily dressing change, ok to leave open to air when sedentary. May bathe but keep foot elevated, out of water. Elevation when sedentary. Weightbearing on the heel is ok. No forefoot pressure until seen back in Dr Hendricks office. Follow-up with Dr Carvajal 10-14 days, call [phone] for appt Pending Studies at Discharge: No Stand-Alone Forms: [facility], Smoking Cessation Medications and DC Order Prescriptions: New acetaminophen [Mapap (acetaminophen)] 325 mg Tablet 650 mg PO Q4H PRN (Reason: pain) Qty: 50 RF: 0 tramadol 50 mg Tablet 50 mg PO TID PRN (Reason: pain, severe) Qty: 7 RF: 0 amoxicillin-pot clavulanate [Augmentin] 875-125 mg tablet 1 tab PO BID 21 Days Qty: 42 RF: 0 Continued aspirin [Adult Aspirin Regimen] 81 mg tablet,delayed release (DR/EC) 81 mg PO DAILY RF: 0 sotalol 160 mg Tablet 160 mg PO BID RF: 0 rosuvastatin 40 mg Tablet 40 mg PO QAM RF: 0 gabapentin 300 mg Capsule 300 mg PO HS RF: 0 doxylamine succinate 25 mg Tablet 25 mg PO HS PRN (Reason: Sleep) RF: 0 bisacodyl 5 mg Tablet 5 mg PO DAILY PRN (Reason: Constipation) RF: 0 duloxetine 60 mg Capsule,Delayed Release(Dr/Ec) 60 mg PO HS RF: 0 omeprazole 20 mg Tablet,Delayed Release (Dr/Ec) 20 mg PO BID RF: 0 Changed lisinopril 10 mg Tablet 5 mg PO QAM Qty: 0 RF: 0 Discharge Orders: Discharge Order (Routine); Ordered 09/04/19 Ordered By: Anabel Ball Admission Data Admit Date/Time: 08/30/19 16:16 Attending Provider: Anabel Ball I. Admit Provider: Vi Dumont Primary Care Provider: Kodi Cronin Other Providers: Vi Dumont ; Anthony Carvajal ; Aubree Carrero ; [facility] Other Interventions: Discharge Summary Assessment (RN) Last Done: 09/04/19 12:30 DC Date/Time DO NOT enter until pt leaves facility: 09/04/19 13:01
== END 2019-09-04 13:01 | disposition home health service (06) | DRG 475 ==
LOC: SUATTDRO 16:16 → 2W 16:16 → 2N 09-03 23:31

== ENCOUNTER 2020-03-19 12:49 | Inpatient (IN) ==
[2020-03-19] MEDS ORDERED: SODIUM CHLORIDE 0.9% 1000ML 1,000 ML IV ONE (13:37)
[2020-03-19 13:46] LABS: Basophils # (auto) 0.04 K/uL (0-0.2); Basophils % (auto) 0.3 %; Eosinophils # (auto) 0.11 K/uL (0-0.5); Eosinophils % (auto) 0.9 %; Hematocrit (blood only) 41.7 % (42-52); Hemoglobin 14.2 g/dL (14.0-18.0); Immature Granulocytes % (auto) 0.8 %; Lymphocytes # (auto) 1.89 K/uL (1.2-3.4); Lymphocytes % (auto) 15.9 %; Mean Corpuscular Hemoglobin 31.8 pg (25-34); Mean Corpuscular Hgb Conc 34.1 g/dL (32-36); Mean Corpuscular Volume 93.3 fL (80-100); Mean Platelet Volume 10.7 fL (7.4-10.4); Monocytes # (auto) 0.62 K/uL (0.11-0.59); Monocytes % (auto) 5.2 %; Neutrophils # (auto) 9.13 K/uL (1.4-6.5); Neutrophils % (auto) 76.9 %; Platelet Count 245 K/uL (130-400); RDW Coefficient of Variation 13.4 % (11.5-14.5); RDW Standard Deviation 45.7 fL (36.4-46.3); Red Blood Count 4.47 M/uL (4.7-6.1); White Blood Count 11.89 K/uL (4.8-10.8)
--- NOTE | 2020-03-19 13:51 | XRay Report ---
XR chest 1V portable HISTORY: Shortness of breath. Atypical Chest Pain COMPARISON: Chest 05/15/2014. FINDINGS: No pneumothorax. The cardiac silhouette remains mildly enlarged. Perihilar hazy airspace op acities and interstitial thickening have progressed. Suspect trace bilateral pleural effusions. There are low lung volumes. IMPRESSION: Perihilar hazy airspace opacities and diffuse interstitial thickening. This has progressed. There josie ears to be trace bilateral pleural effusions. Findings favor moderate pulmonary edema. An atypical pn eumonitis could also have a similar appearance. ACT 112: Negative or not required by law. Electronically signed by: Baldemar Angel M.D. 03/19/2020 1:50 PM
[2020-03-19 13:54] LABS: Alanine Aminotransferase 18 U/L (12-78); Albumin Level 3.3 gm/dl (3.4-5.0); Aspartate Aminotransferase 16 U/L (15-37); BUN Creatinine Ratio 17.4 (10-20); Blood Urea Nitrogen 21 mg/dl (7-18); Calcium 8.9 mg/dl (8.5-10.1); Carbon Dioxide 26 mmol/L (21-32); Chloride 104 mmol/L (98-107); Creatinine Clr Calc Pharmacy 62.5 ml/min; Est GFR (African American) 73.4; Est GFR (Non-African American) 63.3; Glucose 89 mg/dl (70-99); Lipase 79 U/L (73-393); Sodium 137 mmol/L (136-145)
[2020-03-19 13:58] LABS: Albumin Globulin Ratio 0.8 (0.9-2); Alkaline Phosphatase 99 U/L (45-117); Bilirubin,Total 1.8 mg/dl (0.2-1); Phosphorus 3.3 mg/dl (2.5-4.9); Total Protein 7.3 gm/dl (6.4-8.2); Troponin I < 0.015 ng/ml (0-0.045)
[2020-03-19 14:03] LABS: Partial Thromboplastin Ratio 1.1; Partial Thromboplastin Time 30.1 Seconds (21.0-31.0); Prothrombin Time 10.7 Seconds (9.0-12.0)
[2020-03-19 14:05] LABS: D Dimer 1010 ug/L FEU (0-500)
--- NOTE | 2020-03-19 14:17 | Emergency Department Note ---
Impression & Plan Dyspnea on minimal exertion, Pleural effusion, bilateral, Interstitial edema, Mitral valve regurgitation ED Provider Note NAME: PAYTON PERALTA AGE: 65 SEX: M ARRIVES VIA: Walk-In INFORMANT: Patient, ED PROVIDER(S): Bear Barry MD CHIEF COMPLAINT: Shorntess of breath PLAN: Disposition: Admit MEDICAL DECISION MAKING: The patient is a pleasant 65-year-old gentleman with a past medical history of hypertension, hyperlipidemia, atrial fibrillation on sotalol, history of alcohol dependence, remote history of tobacco who presents emergency department for evaluation of shortness of breath and mild cough and feverishness that began ov er the weekend in the setting of having left foot elective surgery approximately a week ago. The patient was seen at the [facility] and upon discharge to obtain outpatient test he was noted to be significantly dyspneic with exertion and was referred to the emergency department. He reports chest tightness but denies chest pain. Denies palpitations. Patient denies any nausea, vomiting, diarrhea, urinary symptoms. Denies any known COVID-19 exposures. Daughter has visited him and she works at [employer]. However, she does not have any symptoms or known exposures to COVID-19. Patient reports he was seen by his orthopedic surgeon last week and they feel his leg is doing well. On arrival the patient is no acute distress, afebrile with stable vital signs. He has dry mucous membranes. He appears slightly dyspneic. Lungs are slightly diminished at the bases and he has a scant intermittent wheeze. his left lower extremity in splint and wrap does not have any significant edema or tenderness. EKG without overt acute ischemia. Chest x-ray with bilateral pleural effusions and interstitial thickening favors pulmonary edema though could be consistent with pneumonitis. WBC 11.8, nonspecific. Hemoglobin and platelets within normal limits. Chemistry without acidosis. BUN is elevated at 21 consistent with overall dry appearance. Electrolytes and LFTs are unremarkable. Troponin negative/undetectable. BNP is elevated at 10K, without prior values for comparison and of unclear significance given the patient does not appear particularly overloaded. COVID-19 was negative. D-dimer was elevated. CTA of the chest was performed. This was negative for PE however does redemo nstrate bilateral pleural effusions as well as interstitial edema that is suggestive of pulmonary edema though again may have a component of pneumonitis however there is also evidence of cardiac dysfunction with regurgitation of contrast into the IVC and hepatic veins. Patient does report having a recent echo and stress test that were reassuring prior to his surgery. He reports he has a "leaky valve" that was stable. Review of the patient's cardiology visit did comment on only mild mitral regurgitation. Unclear if the patient's BNP elevation could reflect a a change in his valvular disease in the setting of his recent surgery or actually related to episodes of his paroxysmal A. fib. Pat ient denied any significant improvement after receiving steroid and albuterol MDI. Patient was given IVF initially but denies any worsening of sx. Given the unclear nature to the patient's dyspnea and lab and imaging findings reasonable to admit the patient for further management. Patient is agreeable to this. He was given a dose of Lasix. Case was discussed with Daiana Noel, [facility] PAC, with Dr. Gonsalves, [facility] hospitalist who will evaluate the patient for admission. Triage Nursing notes reviewed and agree them. Prior medical records reviewed Vital Signs: reviewed and remarkable for no significant abnormalities Differential diagnosis: Reactive airway disease, pneumonia, pneumothorax, COPD, CHF, infections, cardiac ischemia, pulmonary embolism, musculoskeletal, gastrointestinal, as well as other pathologies. ER treatment provided: See below. Diagnostics interpreted by me: ECG: Normal sinus rhythm, 82 bpm, no ectopy, nonspecific T wave abnormality, no overt ST elevation or depression, QTC 468, QRS 90. Cardiac Monitoring: An order for continuous cardiac monitoring was placed and demonstrated sinus rhythm, 82 bpm, no ectopy. Laboratory studies: See below Imaging studies: XR chest 1V portable HISTORY: Shortness of breath. Atypical Chest Pain COMPARISON: Chest 05/15/2014. FINDINGS: No pneumothorax. The cardiac silhouette remains mildly enlarged. Perihilar hazy airspace opacities and interstitial thickening have progressed. Suspect trace bilateral pleural effusions. There are low lung volumes. IMPRESSION: Perihilar hazy airspace opacities and diffuse interstitial thickening. This has progressed. There appears to be trace bilateral pleural effusions. Findings favor moderate pulmonary edema. An atypical pneumonitis could also have a similar appearance. CT ANGIOGRAM OF THE CHEST CLINICAL HISTORY: Dyspnea. Recent surgery. Elevated d-dimer. COMPARISON STUDY: Chest x-ray dated 03/19/2020. Chest CT dated 04/27/2014. TECHNIQUE: Following the IV administration of 120 cc of Optiray 320, CT angiogram of the chest was performed from the upper abdomen to the thoracic inlet utilizing the pulmonary embolus protocol. Images are reviewed in the axial, sagittal, and coronal planes. 3-D MIPS images are created and assessed. IV contrast was administered without complication. A dose lowering technique was utilized adhering to the principles of ALARA. CT DOSE: 539.88 mGycm FINDINGS: Thyroid: Atrophic. Thoracic aorta: There is mild atherosclerotic calcification of the thoracic aorta, which is normal in caliber and demonstrates bovine variant arch anatomy. No dissection is seen. Pulmonary vasculature: The pulmonary trunk is normal in caliber. There are no filling defects identified in main, lobar, or segmental pulmonary branches to suggest pulmonary embolus. Heart: The heart is enlarged and without pericardial effusion. The coronary arteries are densely calcified. Reflux of contrast in the IVC and hepatic veins suggests cardiac dysfunction. Lungs and pleural spaces: Evaluation of the lung parenchyma is modestly degraded by motion artifact. Mild emphysematous change is noted. There are small to moderate pleural effusions with dependent atelectasis. There is diffuse intralobular septal thickening as well as bilateral perihilar groundglass opacities. Scattered calcified granulomas are observed. A 3 mm right apical pulmonary nodule and a 4 mm right middle lobe pulmonary nodule seen on image #102 have been present dating back to 2014 and are of doubtful significance. Mediastinum: Subcentimeter mediastinal lymph nodes are not pathologically enlarged by size criteria. Laina: Clear. Axillae: There is no axillary lymphadenopathy. Upper abdomen: Partially visualized upper abdominal viscera is within normal l imits. Skeletal structures: No lytic or blastic bony lesions are seen. IMPRESSION: 1. There is no evidence of pulmonary embolus in the main, lobar, or segmental pulmonary arteries. 2. Cardiomegaly with evidence of congestive failure and cardiac dysfunction. 3. Bilateral groundglass opacities are typical for interstitial edema. Correlate clinically for evidence of a superimposed infectious/inflammatory pneumonitis. 4. Small to moderate pleural effusions with bibasilar atelectasis. 5. Additional findings as above. Consultation(s): Case was discussed with Daiana Noel [facility] [place], with Dr. Gonsalves, [facility] hospitalist who will evaluate the patient for admission. HPI: The patient is a pleasant 65-year-old gentleman with a past medical history of hypertension, hyperlipidemia, atrial fibrillation on sotalol, history of alcohol dependence, remote history of tobacco who presents emergency department for evaluation of shortness of breath and mild cough and feverishness that began over the weekend in the setting of having left foot elective surgery approximately a week ago. The patient was seen at the [facility] and upon discharge to obtain outpatient test he was noted to be significantly dyspneic with exertion and was referred to the emergency department. He reports chest tightness but denies chest pain. Denies palpitations. Patient denies any nausea, vomiting, diarrhea, urinary symptoms. Denies any known COVID-19 exposures. Daughter has visited him and she works at [employer]. But she does not have any symptoms or known exposures to COVID-19. Patient reports he was seen by his orthopedic surgeon last week and they feel his leg is doing well. ROS: See above HPI for pertinent positives & negatives. A total of 10 systems reviewed and were otherwise negative. PAST MEDICAL HISTORY:See Below PAST SURGICAL HISTORY:See Below FAMILY HISTORY:See Below SOCIAL HISTORY:See Below HOME MEDICATIONS:See Below ALLERGIES:See Below VITALS:See Below PHYSICAL EXAMINATION: GENERAL: Awake, alert, fatigued-appearing, in no distress HENT: Normocephalic, atraumatic. Oropharynx with dry mucous membranes and otherwise unremarkable. EYES: Normal conjunctiva. Sclera non-icteric. NECK: Supple. No nuchal rigidity. FROM. No JVD. RESPIRATORY: Lungs are slightly diminished at the bases otherwise with scant intermittent wheeze. CARDIAC: Regular rate, normal rhythm. Extremities warm and well perfused. Pulses equal. ABDOMEN: Soft, non-distended. No tenderness to palpation. No rebound or guarding. No masses. RECTAL: Deferred. MUSCULOSKELETAL: Chest examination reveals no tenderness. The back is symmetrical on inspection without obvious abnormality. There is no CVA tenderness to palpation. No joint edema. LOWER EXTREMITIES: Calves are equal size bilaterally and non-tender. No edema. No discoloration. NEURO: Normal sensorium. No sensory or motor deficits noted. SKIN: No rash or jaundice noted. Bear aBrry MD Past Med/Surg History Medical History Anxiety Atrial fibrillation DX 2013 HX OF CARDIOVERSION X 2 LAST ATRIAL FIB WAS ABOUT 5 YEARS AGO BPH (benign prostatic hyperplasia) CAD (coronary artery disease) Cardiac murmur follows with DR. ARREDONDO LAST ECHO 10/2017 Chronic constipation Esophageal dysphagia GERD (gastroesophageal reflux disease) History of cardioversion X2 HLD (hyperlipidemia) HTN (hypertension) Neurogenic bladder Neuropathic foot ulcer Neuropathy Osteoarthritis Paroxysmal atrial fibrillation Spina bifida Spinal cord tumor Surgical History History of right cataract surgery Hx of arthroscopic knee surgery LEFT Hx of colonoscopy Hx of esophagogastroduodenoscopy Hx of foot surgery RIGHT - STRAIGHTEN ANKLE AND UNSUCCESSFUL Hx of heart artery stent 2009 X2 STENT (EDILMA) AT [facility] FOLLOW WITH DR ARREDONDO Hx of spinal surgery 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 Family History Other Breast cancer Heart disease Stroke Social History Smoking Status: Former smoker Second Hand Exposure: Yes (mother smoked); Hx Alcohol Use: No (former) Hx Substance Use: No Preferred Language: Bahraini Communication Ability: Effective Research Manufacturing Operator Required: No Beliefs That Will Affect Care: None Current Living Situation: Spouse Feels Safe at Home: Yes Assistive Devices: Crutches Allergies Allergies Allergy/AdvReac Type Severity Reaction Status Date / Time Bactrim Allergy Intermediate RASH Verified 11/14/16 02:28 sulfamethoxazole Allergy Intermediate RASH Verified 03/19/20 17:04 trimethoprim Allergy Intermediate RASH Verified 09/01/19 13:53 Home Meds Home Medications Medication Instructions Recorded Confirmed bisacodyl 5 mg PO DAILY PRN 05/02/19 03/19/20 duloxetine 60 mg PO HS 05/02/19 03/19/20 gabapentin 300 mg PO HS 05/02/19 03/19/20 omeprazole 20 mg PO BID 05/02/19 03/19/20 sotalol 160 mg PO BID 05/02/19 03/19/20 aspirin 81 mg tablet,delayed 81 mg PO DAILY 08/30/19 03/19/20 release gbyr-rinup-ye1-tsb-krv-vvtz-st 1 cap PO DAILY 03/19/20 03/19/20 [Glucosamine Chondroitin PLUS] lisinopril 5 mg PO QAM 03/19/20 03/19/20 omega 4-fma-cgz-fish oil [Fish Oil] 1 cap PO BID 03/19/20 03/19/20 rosuvastatin 40 mg PO DAILY 03/19/20 03/19/20 Previous Rx's Medication Instructions Recorded acetaminophen [Mapap 650 mg PO Q4H PRN #50 tab 09/04/19 (acetaminophen)] Results & Data (ED) Vital Signs Vital Signs - 24 hr 03/19/20 12:52 03/19/20 12:57 03/19/20 13:30 Temperature 36.9 C Temperature Source Oral Pulse Rate 100 H 78 Pulse Rate from SpO2 Sensor 78 Respiratory Rate 22 15 Blood Pressure 100/64 120/83 Blood Pressure Mean 76 87 Pulse Oximetry 99 99 95 Oxygen Delivery Method Room Air Room Air Sepsis Recent Fever Within 48 Hours No Sepsis New/Unexplained Change in Mental Status N/A Sepsis Action Taken by Nursing No Action Required 03/19/20 13:37 03/19/20 14:01 03/19/20 14:32 Temperature Temperature Source Pulse Rate 81 78 Pulse Rate from SpO2 Sensor 81 78 Respiratory Rate 19 19 Blood Pressure 100/50 L 108/70 Blood Pressure Mean 76 72 Pulse Oximetry 94 95 94 Oxygen Delivery Method Room Air Sepsis Recent Fever Within 48 Hours Sepsis New/Unexplained Change in Mental Status Sepsis Action Taken by Nursing 03/19/20 15:30 03/19/20 17:00 03/19/20 17:56 Temperature Temperature Source Pulse Rate 77 80 80 Pulse Rate from SpO2 Sensor 80 Respiratory Rate 24 21 22 Blood Pressure 96/66 L 93/64 L 90/55 L Blood Pressure Mean 70 65 59 Pulse Oximetry 94 Oxygen Delivery Method Sepsis Recent Fever Within 48 Hours Sepsis New/Unexplained Change in Mental Status Sepsis Action Taken by Nursing Laboratory Data Attestation: I reviewed the patient's lab results. Result diagrams: 03/19/20 13:08 03/19/20 13:08 Lab Results 03/19/20 03/19/20 03/19/20 Range/Units 13:08 13:08 13:08 WBC 11.89 H (4.8-10.8) K/uL RBC 4.47 L (4.7-6.1) M/uL Hgb 14.2 (14.0-18.0) g/dL Hct 41.7 L (42-52) % MCV 93.3 (80-100) fL MCH 31.8 (25-34) pg MCHC 34.1 (32-36) g/dL RDW Std Deviation 45.7 (36.4-46.3) fL RDW Coeff of Elan 13.4 (11.5-14.5) % Plt Count 245 (130-400) K/uL MPV 10.7 H (7.4-10.4) fL Immature Gran % (Auto) 0.8 % Neut % (Auto) 76.9 % Lymph % (Auto) 15.9 % Nobles % (Auto) 5.2 % Eos % (Auto) 0.9 % Baso % (Auto) 0.3 % Neut # (Auto) 9.13 H (1.4-6.5) K/uL Lymph # (Auto) 1.89 (1.2-3.4) K/uL Nobles # (Auto) 0.62 H (0.11-0.59) K/uL Eos # (Auto) 0.11 (0-0.5) K/uL Baso # (Auto) 0.04 (0-0.2) K/uL Immature Gran # (Auto) 0.10 H (0.00-0.02) K/uL PT 10.7 (9.0-12.0) Seconds INR 1.0 (0.9-1.1) APTT 30.1 (21.0-31.0) Seconds PTT Ratio 1.1 D-Dimer 1010 H* (0-500) ug/L FEU Sodium 137 (136-145) mmol/L Potassium 4.0 (3.5-5.1) mmol/L Chloride 104 (98-107) mmol/L Carbon Dioxide 26 (21-32) mmol/L Anion Gap 7.0 (3-11) BUN 21 H (7-18) mg/dl Creatinine 1.21 (0.6-1.4) mg/dl Est Cr Clr Drug Dosing 62.5 ml/min Est GFR ( Amer) 73.4 Est GFR (Non-Af Amer) 63.3 BUN/Creatinine Ratio 17.4 (10-20) Glucose 89 (70-99) mg/dl Calcium 8.9 (8.5-10.1) mg/dl Phosphorus 3.3 (2.5-4.9) mg/dl Magnesium 2.0 (1.8-2.4) mg/dl Total Bilirubin 1.8 H (0.2-1) mg/dl AST 16 (15-37) U/L ALT 18 (12-78) U/L Alkaline Phosphatase 99 (45-117) U/L Troponin I < 0.015 (0-0.045) ng/ml NT-Pro-B Natriuret Pep 49816 H (0-900) pg/ml Total Protein 7.3 (6.4-8.2) gm/dl Albumin 3.3 L (3.4-5.0) gm/dl Globulin 4.0 (2.5-4.0) gm/dl Albumin/Globulin Ratio 0.8 L (0.9-2) Lipase 79 (73-393) U/L COVID-19 Eval Order COVID-19 PCR (Negative) 03/19/20 03/19/20 Range/Units 14:27 14:27 WBC (4.8-10.8) K/uL RBC (4.7-6.1) M/uL Hgb (14.0-18.0) g/dL Hct (42-52) % MCV (80-100) fL MCH (25-34) pg MCHC (32-36) g/dL RDW Std Deviation (36.4-46.3) fL RDW Coeff of Elan (11.5-14.5) % Plt Count (130-400) K/uL MPV (7.4-10.4) fL Immature Gran % (Auto) % Neut % (Auto) % Lymph % (Auto) % Nobles % (Auto) % Eos % (Auto) % Baso % (Auto) % Neut # (Auto) (1.4-6.5) K/uL Lymph # (Auto) (1.2-3.4) K/uL Nobles # (Auto) (0.11-0.59) K/uL Eos # (Auto) (0-0.5) K/uL Baso # (Auto) (0-0.2) K/uL Immature Gran # (Auto) (0.00-0.02) K/uL PT (9.0-12.0) Seconds INR (0.9-1.1) APTT (21.0-31.0) Seconds PTT Ratio D-Dimer (0-500) ug/L FEU Sodium (136-145) mmol/L Potassium (3.5-5.1) mmol/L Chloride (98-107) mmol/L Carbon Dioxide (21-32) mmol/L Anion Gap (3-11) BUN (7-18) mg/dl Creatinine (0.6-1.4) mg/dl Est Cr Clr Drug Dosing ml/min Est GFR ( Amer) Est GFR (Non-Af Amer) BUN/Creatinine Ratio (10-20) Glucose (70-99) mg/dl Calcium (8.5-10.1) mg/dl Phosphorus (2.5-4.9) mg/dl Magnesium (1.8-2.4) mg/dl Total Bilirubin (0.2-1) mg/dl AST (15-37) U/L ALT (12-78) U/L Alkaline Phosphatase (45-117) U/L Troponin I (0-0.045) ng/ml NT-Pro-B Natriuret Pep (0-900) pg/ml Total Protein (6.4-8.2) gm/dl Albumin (3.4-5.0) gm/dl Globulin (2.5-4.0) gm/dl Albumin/Globulin Ratio (0.9-2) Lipase (73-393) U/L COVID-19 Eval Order Covid19 Done at [facility] COVID-19 PCR NEGATIVE (Negative) Administered Medications Duloxetine HCl (Duloxetine Hcl 60 Mg Cap) 60 mg PO HS AALIYAH Stop: 04/18/20 20:59 Last Admin: 03/19/20 22:27 Dose: 60 mg Documented by: [id number] Fish Oil ([place]-3 (Purified Fish Oil) 1 Gm Cap) 1 gm PO BID AALIYAH Stop: 04/18/20 21:06 Last Admin: 03/19/20 22:22 Dose: 1 gm Documented by: [id number] Gabapentin (Gabapentin 300 Mg Cap) 300 mg PO HS AALIYAH Stop: 04/18/20 20:59 Last Admin: 03/19/20 22:28 Dose: 300 mg Documented by: [id number] Heparin Sodium (Porcine) (Heparin Sod 5,000 Unit/0.5 Ml Vial) 5,000 units SQ Q8 AALIYAH Stop: 04/18/20 21:59 Last Admin: 03/19/20 22:28 Dose: 5,000 units Documented by: [id number] Cosigned by: [id number] Pantoprazole Sodium (Pantoprazole 40 Mg Tab) 40 mg PO BID AALIYAH Stop: 04/18/20 21:06 Last Admin: 03/19/20 22:21 Dose: 40 mg Documented by: [id number] Sotalol HCl (Sotalol Hcl 80 Mg Tab) 160 mg PO BID AALIYAH Stop: 04/18/20 19:59 Last Admin: 03/19/20 22:48 Dose: Not Given Documented by: [id number] Admin: 03/19/20 22:20 Dose: Not Given Documented by: [id number] Discontinued Medications Albuterol (Albuterol Hfa 8 Gm Inhaler) 2 puffs INH NOW ONE Stop: 03/19/20 15:24 Last Admin: 03/19/20 15:47 Dose: 2 puffs Documented by: [id number] Albuterol (Albut/Ipratrop 3mg/0.5mg Neb 3 Ml Vial) 3 ml NEB NOW STA Stop: 03/19/20 18:15 Last Admin: 03/19/20 18:23 Dose: 3 ml Documented by: [id number] Furosemide (Furosemide 40 Mg/4 Ml Vial) 20 mg IV NOW STA Stop: 03/19/20 17:17 Last Admin: 03/19/20 18:06 Dose: 20 mg Documented by: [id number] Furosemide (Furosemide 40 Mg/4 Ml Vial) 20 mg IV NOW ONE Stop: 03/19/20 21:08 Last Admin: 03/19/20 22:21 Dose: 20 mg Documented by: [id number] Sodium Chloride (Nss 1000ml) 1,000 mls @ 999 mls/hr IV .Q1H1M ONE Stop: 03/19/20 14:37 Last Infusion: 03/19/20 17:51 Dose: 0 mls/hr Documented by: [id number] Admin: 03/19/20 15:47 Dose: 999 mls/hr Documented by: [id number] Magnesium Sulfate/Dextrose (Magnesium Sulfate / D5w) 1 gm in 100 mls @ 100 mls/hr IV NOW STA Stop: 03/19/20 16:22 Last Infusion: 03/19/20 17:51 Dose: 0 mls/hr Documented by: [id number] Admin: 03/19/20 15:47 Dose: 100 mls/hr Documented by: [id number] Dexamethasone Sodium Phosphate (10 mg/ Syringe) 2.5 mls @ 1 mls/min IV NOW STA Stop: 03/19/20 15:25 Last Admin: 03/19/20 15:47 Dose: 1 mls/min Documented by: [id number] Ioversol (Optiray 320 125ml) 120 ml IV ONCE ONE Stop: 03/19/20 14:45 Last Admin: 03/19/20 14:44 Dose: 120 ml Documented by: [id number] Discharge Plan Visit Data Chief Complaint: Shortness of Breath/Dyspnea Stated Complaint: CHEST PAIN, SOB ED Provider: Bear Barry Discharge Problem: Dyspnea on minimal exertion, Pleural effusion, bilateral, Interstitial edema, Mitral valve regurgitation Patient Disposition: Admitted As Inpatient Discharge Instructions Interventions: ED Discharge Assessment Last Done: 03/19/20 20:26
[2020-03-19] MEDS ORDERED: OPTIRAY 320 125ml IV ONE (14:44)
--- NOTE | 2020-03-19 15:02 | CT Scan Report ---
CT ANGIOGRAM OF THE CHEST CLINICAL HISTORY: Dyspnea. Recent surgery. Elevated d-dimer. COMPARISON STUDY: Chest x-ray dated 03/19/2020. Chest CT dated 04/27/2014. TECHNIQUE: Following the IV administration of 120 cc of Optiray 320, CT angiogram of the chest was pe rformed from the upper abdomen to the thoracic inlet utilizing the pulmonary embolus protocol. Images are reviewed in the axial, sagittal, and coronal planes. 3-D MIPS images are created and assessed. I V contrast was administered without complication. A dose lowering technique was utilized adhering to the principles of ALARA. CT DOSE: 539.88 mGycm FINDINGS: Thyroid: Atrophic. Thoracic aorta: There is mild atherosclerotic calcification of the thoracic aorta, which is normal in caliber and demonstrates bovine variant arch anatomy. No dissection is seen. Pulmonary vasculature: The pulmonary trunk is normal in caliber. There are no filling defects identif ied in main, lobar, or segmental pulmonary branches to suggest pulmonary embolus. Heart: The heart is enlarged and without pericardial effusion. The coronary arteries are densely calc ified. Reflux of contrast in the IVC and hepatic veins suggests cardiac dysfunction. Lungs and pleural spaces: Evaluation of the lung parenchyma is modestly degraded by motion artifact. Mild emphysematous change is noted. There are small to moderate pleural effusions with dependent atel ectasis. There is diffuse intralobular septal thickening as well as bilateral perihilar groundglass o pacities. Scattered calcified granulomas are observed. A 3 mm right apical pulmonary nodule and a 4 m m right middle lobe pulmonary nodule seen on image #102 have been present dating back to 2013 and are of doubtful significance. Mediastinum: Subcentimeter mediastinal lymph nodes are not pathologically enlarged by size criteria. Laina: Clear. Axillae: There is no axillary lymphadenopathy. Upper abdomen: Partially visualized upper abdominal viscera is within normal limits. Skeletal structures: No lytic or blastic bony lesions are seen. IMPRESSION: 1. There is no evidence of pulmonary embolus in the main, lobar, or segmental pulmonary arteries. 2. Cardiomegaly with evidence of congestive failure and cardiac dysfunction. 3. Bilateral groundglass opacities are typical for interstitial edema. Correlate clinically for evide nce of a superimposed infectious/inflammatory pneumonitis. 4. Small to moderate pleural effusions with bibasilar atelectasis. 5. Additional findings as above. ACT 112: Negative or not required by law. Electronically signed by: Cuong Green M.D. 03/19/2020 3:01 PM
[2020-03-19] MEDS ORDERED: DEXAMETHASONE SOD PHOSPHATE 10 MG in SYRINGE 0 ML IV STA (15:23)
[2020-03-19] MEDS ORDERED: MAGNESIUM SULFATE / D5W 1 GM/100 ML BAG IV STA (15:23)
[2020-03-19] MEDS ORDERED: ALBUTEROL HFA 8 GM INHALER INH ONE (15:23)
--- NOTE | 2020-03-19 16:07 | Electrocardiogram Report ---
Test Reason : Blood Pressure : / mmHG Vent. Rate : 082 BPM Atrial Rate : 082 BPM P-R Int : 182 ms QRS Dur : 090 ms QT Int : 400 ms P-R-T Axes : 041 054 042 degrees QTc Int : 468 ms Normal sinus rhythm Possible Left atrial enlargement Abnormal ECG When compared with ECG of 13-NOV-2016 22:50, Borderline criteria for Inferior infarct are no longer Present Nonspecific T wave abnormality has replaced inverted T waves in Inferior leads Confirmed by Patrick Hawkins ([id number]) on 03/19/2020 4:07:30 PM Referred By: REFERRED SELF Confirmed By:Robert Hawkins
[2020-03-19 16:11] LABS: NT Pro B Type Natriuretic Pept 10204 pg/ml (0-900)
[2020-03-19] MEDS ORDERED: FUROSEMIDE 40 MG/4 ML VIAL IV STA (17:16)
--- NOTE | 2020-03-19 18:01 | History & Physical Report ---
Date of Service March 19, 2020 Assessment & Plan (1) Dyspnea on exertion: (2) Acute congestive heart failure: This is a 65-year-old male with PMH of paroxysmal atrial fibrillation on Sotalol, CAD (s/p PCI to LAD), moderate mitral regurgitation, HTN, HLD, spina bifida s/p repair, neurogenic bladder and other medical problems listed below who presents with worsening dyspnea on exertion x4 days. -Worsening dyspnea on exertion, orthopnea, PND, 10 pound weight gain -BNP greater than 10,000, d-dimer, 1,010, initial troponin negative. Mild leukocytosis of 11.89, COVID PCR negative -Chest CTA with no evidence of pulmonary embolus in the main, lobar, or segmental pulmonary arteries but cardiomegaly with evidence of congestive failure and cardiac dysfunction -Recently seen by Dr. Arredondo for pre-op evaluation on 02/20/20. Underwent Lexiscan NST which was normal and 2D echo on 03/06/20 with moderately increased (concentric) LV wall, preserved EF of 55-59%, mild AV sclerosis, moderate mitral annular calcification with heavy calcification of the anterior mitral valve leaflet and chordal structure. Mild MR and TR present -Given 20mg IV Lasix in ED as well as 1 L NSS, DuoNeb, 1 g and IV dexamethasone -Will give an additional 20 mg IV Lasix for total of 40 mg this evening and plan for another 40mg IV in AM -hold for SBP <100 -Low sodium diet, daily weights, supplemental O2 PRN, strict I&Os with vera catheter in place -Routine cardiology consult (3) HTN (hypertension): Will hold lisinopril for now while receiving lasix due to BP of 93/64. Asymptomatic and records show low normal BP in the past and lisinopril dose reduced on previous admission (4) Paroxysmal atrial fibrillation: Continue Sotalol. Monitor on telemetry (5) Coronary artery disease: S/P PCI LAD in 2010 Continue aspirin, rosuvastatin (6) Neuropathy: Continue gabapentin HS (7) Neuropathic foot ulcer: -S/p amputation of fourth left metatarsal by Dr. Carvajal last week, due for next f/u appt in a week -Fall precautions and foot care discussed- had dressing changed at recent appt a nd was not instructed to change on his own (8) Neurogenic bladder: Vera catheter in place DVT Ppx: SQ heparin Code status: FULL PCP: Mehrdad Dispo: Observation med tele. Plan to return home once medically stable. Patient seen in collaboration with Dr. Gonsalves. Please see addendum. History of Present Illness Chief Complaint: Dyspnea on exertion Primary Care Provider: Kodi Cronin MD This is a 65-year-old male with PMH of paroxysmal atrial fibrillation on Sotalol, CAD (s/p PCI to LAD), moderate mitral regurgitation, HTN, HLD, spina bifida s/p repair, neurogenic bladder and other medical problems listed below who presents with worsening dyspnea on exertion x4 days. Patient underwent amputation of fourth left metatarsal by Dr. Carvajal last week. Since then, he admits he has been less active than usual and has been eating a lot of takeout food, endorsing a 10 pound weight gain. Also states he was not as compliant with medication as usual, taking meds (including Sotalol 2 out of 7 days). On Wednesday, patient became acutely short of breath with any type of movement and had some twinging pains below the left breastbone that resolved by the next day. Noted some wheezing. Continued to feel dyspneic with any type of movement and was unable to sleep lying flat. Endorses both orthopnea and PND. Dry cough but no sputum production. Denies any fever, chills, headache or malaise. Had some nausea yesterday but no vomiting. No abdominal pain but feels distended there. Does self cath due to history of neurogenic bladder from spina bifida. Still feeling short of breath but better after DuoNeb treatment. Denies any chest pain. No fever, chills, lightheadedness, headache, cough, sore throat, chest pain, palpitations, nausea, vomiting, abdominal pain or dysuria. Has felt constipated recently but took laxative last evening with bowel movement. Of note, prior to surgery, patient had preop eval by Dr. Arredondo and mentioned some increased dyspnea on exertion at that time. Underwent Lexiscan NST which was normal and 2D echo on 03/06/20 with moderately increased (concentric) LV wall, normal left ventricular wall motion, preserved EF of 55 to 59%, mild aortic valve sclerosis, moderate mitral annular calcification with heavy calcification of the anterior mitral valve leaflet and chordal structure. Mild MR and TR present. Allergies Allergy/AdvReac Type Severity Reaction Status Date / Time Bactrim Allergy Intermediate RASH Verified 11/14/16 02:28 sulfamethoxazole Allergy Intermediate RASH Verified 03/19/20 17:04 trimethoprim Allergy Intermediate RASH Verified 09/01/19 13:53 Home Medications Home Medications Medication Instructions Recorded Confirmed Type bisacodyl 5 mg PO DAILY PRN 05/02/19 03/19/20 History duloxetine 60 mg PO HS 05/02/19 03/19/20 History gabapentin 300 mg PO HS 05/02/19 03/19/20 History omeprazole 20 mg PO BID 05/02/19 03/19/20 History sotalol 160 mg PO BID 05/02/19 03/19/20 History aspirin 81 mg tablet,delayed 81 mg PO DAILY 08/30/19 03/19/20 History release acetaminophen [Mapap 650 mg PO Q4H PRN #50 tab 09/04/19 03/19/20 Rx (acetaminophen)] hcij-qxqeu-im0-eit-gfz-hvqd-st 1 cap PO DAILY 03/19/20 03/19/20 History [Glucosamine Chondroitin PLUS] lisinopril 5 mg PO QAM 03/19/20 03/19/20 History omega 1-kjd-teh-fish oil [Fish Oil] 1 cap PO BID 03/19/20 03/19/20 History rosuvastatin 40 mg PO DAILY 03/19/20 03/19/20 History Past Med/Surg History Medical History (Updated 03/19/20 @ 19:41 by Daiana Noel PA-C) Anxiety Atrial fibrillation DX 2012 HX OF CARDIOVERSION X 2 LAST ATRIAL FIB WAS ABOUT 5 YEARS AGO BPH (benign prostatic hyperplasia) CAD (coronary artery disease) Cardiac murmur follows with DR. ARREDONDO LAST ECHO 10/2017 Chronic constipation Esophageal dysphagia GERD (gastroesophageal reflux disease) History of cardioversion X2 HLD (hyperlipidemia) HTN (hypertension) Neurogenic bladder Neuropathic foot ulcer Neuropathy Osteoarthritis Paroxysmal atrial fibrillation Spina bifida Spinal cord tumor Surgical History History of right cataract surgery Hx of arthroscopic knee surgery LEFT Hx of colonoscopy Hx of esophagogastroduodenoscopy Hx of foot surgery RIGHT - STRAIGHTEN ANKLE AND UNSUCCESSFUL Hx of heart artery stent 2008 X2 STENT ([facility]ILMA) AT [facility] FOLLOW WITH DR ARNULFO Hx of spinal surgery 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 Family History Other Breast cancer Heart disease Stroke Social History Smoking Status: Never smoker Second Hand Exposure: Yes (mother smoked); Hx Alcohol Use: No (former; no use since 2017) Hx Substance Use: Yes Last Used Substance Other:: 2017 Preferred Language: Sami Communication Ability: Effective Medical Aides Teacher Required: No Beliefs That Will Affect Care: None Current Living Situation: Spouse Feels Safe at Home: Yes Assistive Devices: Special Shoe Review of Systems Review of Systems: At least ten systems reviewed and negative except as noted in the HPI. Physical Exam Physical Exam: General Appearance: WD/WN, vitals as above, NAD, sitting up in bed, pleasant, conversational dyspnea Head: normocephalic, atraumatic Eyes: normal inspection, PERRL, conjunctivae normal, anicteric sclerae ENT: external ear and nose normal, oropharynx normal Neck: normal visual inspection, trachea midline, no thyromegaly Respiratory: Increased work of breathing but no accessory muscle use. Bibasilar Rales on auscultation -no wheeze or rhonchi Cardiovascular: regular rate and rhythm, +systolic murmur, normal peripheral pulses, no BLE edema. Vessels: no JVD Chest: normal inspection of chest Abdomen/GI: normal bowel sounds, mildly distended but soft, nontender, no hepatosplenomegaly Extremities/Musculoskeletal: no cyanosis or clubbing, extremities motor strength 5/5. +LLE with surgical dressing intact, wearing boot Neurologic: PERRL, EOMI, accommodation nl, no face palsy, no dysarthria, CN's II-XI intact bilaterally and moves all extremities Psychiatric: A+Ox3, euthymic affect Skin: no rashes, normal color, warm/dry Results & Data Results & Data ([facility]) Vital Signs (Past 12 Hours) Vital Signs Temp Pulse Resp BP Pulse Ox 03/19/20 17:00 80 21 93/64 L 03/19/20 15:30 77 24 96/66 L 03/19/20 14:32 78 19 108/70 94 03/19/20 14:01 81 19 100/50 L 95 03/19/20 13:37 94 03/19/20 13:30 78 15 120/83 95 03/19/20 12:57 99 03/19/20 12:52 36.9 C 100 H 22 100/64 99 Laboratory Results Short CBC 03/19/20 Range/Units 13:08 WBC 11.89 H (4.8-10.8) K/uL Hgb 14.2 (14.0-18.0) g/dL Hct 41.7 L (42-52) % Plt Count 245 (130-400) K/uL BMP 03/19/20 13:08 Sodium 137 Potassium 4.0 Chloride 104 Carbon Dioxide 26 BUN 21 H Creatinine 1.21 Glucose 89 Calcium 8.9 Cardiac Enzymes 03/19/20 Range/Units 13:08 Troponin I < 0.015 (0-0.045) ng/ml Liver Function 03/19/20 Range/Units 13:08 Total Bilirubin 1.8 H (0.2-1) mg/dl AST 16 (15-37) U/L ALT 18 (12-78) U/L Alkaline Phosphatase 99 (45-117) U/L Albumin 3.3 L (3.4-5.0) gm/dl Diagnostic Findings CXR: IMPRESSION: Perihilar hazy airspace opacities and diffuse interstitial thickening. This has progressed. There appears to be trace bilateral pleural effusions. Findings favor moderate pulmonary edema. An atypical pneumonitis could also have a similar appearance. Chest CTA: IMPRESSION: 1. There is no evidence of pulmonary embolus in the main, lobar, or segmental pulmonary arteries. 2. Cardiomegaly with evidence of congestive failure and cardiac dysfunction. 3. Bilateral groundglass opacities are typical for interstitial edema. Correlate clinically for evidence of a superimposed infectious/inflammatory pneumonitis. 4. Small to moderate pleural effusions with bibasilar atelectasis. 5. Additional findings as above. ECG Rhythm: normal sinus Additional Comments: NSR, possible left atrial enlargement, nonspecific T wave abnormality in inferior leads Supervising Physician Co-Signing Physician Notes Attending addendum: The patient was seen and examined in emergency room Tented with exertional shortness of breath and weight gain He has been feeling a lot better since admission allowing administration of Lasix Denies any significant symptoms during examination On examination Lying in bed comfortably Blood pressure noted to be low at 93/64 and which has been low chronically Chest-normal wheezing anteriorly and minimal bibasilar crackles Heart-S1-S2, 2/6 systolic murmur over precordium Abdomen-mildly distended, soft, bowel sounds present Extremities-no edema of the left and right is bandaged FIELD NATURALIST- alert, awake and oriented x3 Admission labs, EKG and imaging studies reviewed Acute congestive heart failure likely secondary to PAF Is in sinus rhythm right now and has been feeling better following intravenous Lasix We will continue IV Lasix from tomorrow morning Cardiology evaluation Agree with assessment and plan as outlined above by FALLON Wong Dr
[2020-03-19] MEDS ORDERED: ALBUT/IPRATROP 3MG/0.5MG NEB 3 ML VIAL NEB STA (18:14)
[2020-03-19] MEDS ORDERED: ONDANSETRON INJ 2 MG/ML 2 ML VIAL IV PRN (21:07)
[2020-03-19] MEDS ORDERED: bisacodyL 5 MG TABEC PO PRN (21:07)
[2020-03-19] MEDS ORDERED: POLYETHYLENE (MIRALAX) 17 GM PACK PO PRN (21:07)
[2020-03-19] MEDS ORDERED: ALBUT/IPRATROP 3MG/0.5MG NEB 3 ML VIAL NEB PRN (21:07)
[2020-03-19] MEDS ORDERED: ACETAMINOPHEN 325 MG TAB PO PRN (21:07)
[2020-03-19] MEDS ORDERED: FUROSEMIDE 40 MG/4 ML VIAL IV ONE (21:07)
[2020-03-19] MEDS: SOTALOL HCL 80 MG TAB PO SCH ×2 (22:20→22:48)
[2020-03-19] MEDS: PANTOprazole 40 MG TAB PO SCH (22:21)
[2020-03-19] MEDS: OMEGA-3 (PURIFIED FISH OIL) 1 GM CAP PO SCH (22:22)
[2020-03-19] MEDS: DULoxetine HCL 60 MG CAP PO SCH (22:27)
[2020-03-19] MEDS: HEPARIN SOD 5,000 UNIT/0.5 ML VIAL SQ SCH (22:28)
[2020-03-19] MEDS: GABAPENTIN 300 MG CAP PO SCH (22:28)
[2020-03-20] MEDS: HEPARIN SOD 5,000 UNIT/0.5 ML VIAL SQ SCH (05:45)
[2020-03-20 06:22] LABS: Appearance Urine Clear (Clear); Bilirubin Urine Negative (Negative); Blood Urine Negative (Negative); Color Urine Dark Yellow; Glucose Urine UA Negative (Negative); Ketones Urine 2+ (Negative); Leukocyte Esterase Urine Negative (Negative); Nitrite Urine Negative (Negative); Protein Urine Negative (Negative); Specific Gravity Urine 1.036 (1.000-1.030); Urobilinogen Urine Positive (Negative)
[2020-03-20 07:08] LABS: Hematocrit (blood only) 40.7 % (42-52); Hemoglobin 13.8 g/dL (14.0-18.0); Mean Corpuscular Hemoglobin 31.3 pg (25-34); Mean Corpuscular Hgb Conc 33.9 g/dL (32-36); Mean Corpuscular Volume 92.3 fL (80-100); Mean Platelet Volume 10.4 fL (7.4-10.4); Platelet Count 206 K/uL (130-400); RDW Standard Deviation 44.5 fL (36.4-46.3); Red Blood Count 4.41 M/uL (4.7-6.1); White Blood Count 6.62 K/uL (4.8-10.8)
[2020-03-20 07:43] LABS: Calcium 8.6 mg/dl (8.5-10.1); Creatinine Clr Calc Pharmacy 59.1 ml/min; Est GFR (African American) 69.2; Est GFR (Non-African American) 59.7; Potassium 3.7 mmol/L (3.5-5.1)
[2020-03-20] MEDS: SOTALOL HCL 80 MG TAB PO SCH ×3 (08:30→20:43)
[2020-03-20] MEDS: ASPIRIN 81 MG ECTAB PO SCH (08:31)
[2020-03-20] MEDS: ROSUVASTATIN CALCIUM 20 MG TAB PO SCH (08:31)
[2020-03-20] MEDS: PANTOprazole 40 MG TAB PO SCH ×2 (08:31→20:44)
[2020-03-20] MEDS: OMEGA-3 (PURIFIED FISH OIL) 1 GM CAP PO SCH ×2 (08:31→20:44)
[2020-03-20] MEDS ORDERED: GLUC CONDR OM3 DHA EPA FISH ST PO SCH (09:00)
[2020-03-20] MEDS ORDERED: FUROSEMIDE 40 MG/4 ML VIAL IV SCH (09:00)
[2020-03-20] MEDS ORDERED: [UNRECOGNIZED DRUG - OTHER] PO SCH (09:00)
[2020-03-20] MEDS ORDERED: FUROSEMIDE 40 MG in SYRINGE 0 ML IV SCH (09:00)
--- NOTE | 2020-03-20 09:56 | Cardiology Consultation ---
Date of Consultation March 20, 2020 Assessment & Plan (1) Heart failure, diastolic, with acute decompensation: (2) Mitral valve regurgitation: (3) Dyspnea on exertion: (4) Pulmonary edema: (5) HTN (hypertension): (6) Paroxysmal atrial fibrillation: Patient presents with acute decompensated diastolic heart failure. Recent ischemic work-up unremarkable. Recent echo showed stable valvular dysfunction with mitral regurgitation and tricuspid regurgitation. Also states he is not been compliant with his medications and bursts of atrial fibrillation noted on telemetry overnight, likely a precipitating cause for decompensation as well. We will increase Lasix to 40 mg IV twice daily and start oral spironolactone in the a.m. Anticipate brisk diuresis and likely discharge on oral diuretics soon. Given the episodes of A. fib will also restart his Eliquis that he is tolerated previously. Continue to monitor on telemetry overnight. History of Present Illness Attending Physician: Manuel Ayala MD History of Present Illness Mr. Harp is a very pleasant 65-year-old gentleman who routinely follows with myself as an outpatient. He presented to [facility] emergency room on March 19 with complaints of lower extremity edema, weight gain and dyspnea with exertion. He states that he started noticing the symptoms accumulating last week after most recently being seen by me. He notes he is not been completely compliant with his medications at home and has been missing doses of sotalol. He believes he is felt episodes of atrial fibrillation occurring again with his heart racing. He is also not been following his diet closely and has been eating a good amount of salt. He denies any chest pain, lightheadedness, dizziness or syncope. He states he has been feeling much better after receiving his initial dose of diuretics in the ER. As always, he states he has been alcohol free. PAST MEDICAL HISTORY: 1.Paroxysmal atrial fibrillation with a CHADS score of 1 on chronic sotalol. 2.Coronary artery disease status post PCI to the mid LAD. 3.Hyperlipidemia. 4.Hypertension. 5.Spina bifida status post repair. 6.Ongoing urinary issues requiring self-catheterization. 7.Moderate mitral regurgitation. 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 Allergies Allergy/AdvReac Type Severity Reaction Status Date / Time Bactrim Allergy Intermediate RASH Verified 11/14/16 02:28 sulfamethoxazole Allergy Intermediate RASH Verified 03/19/20 17:04 trimethoprim Allergy Intermediate RASH Verified 09/01/19 13:53 Home Medications Home Medications Medication Instructions Recorded Confirmed Type bisacodyl 5 mg PO DAILY PRN 05/02/19 03/19/20 History duloxetine 60 mg PO HS 05/02/19 03/19/20 History gabapentin 300 mg PO HS 05/02/19 03/19/20 History omeprazole 20 mg PO BID 05/02/19 03/19/20 History sotalol 160 mg PO BID 05/02/19 03/19/20 History aspirin 81 mg tablet,delayed 81 mg PO DAILY 08/30/19 03/19/20 History release acetaminophen [Mapap 650 mg PO Q4H PRN #50 tab 09/04/19 03/19/20 Rx (acetaminophen)] dmva-lohfs-ly2-sut-tbg-ozoo-st 1 cap PO DAILY 03/19/20 03/19/20 History [Glucosamine Chondroitin PLUS] lisinopril 5 mg PO QAM 03/19/20 03/19/20 History omega 2-awa-zmm-fish oil [Fish Oil] 1 cap PO BID 03/19/20 03/19/20 History rosuvastatin 40 mg PO DAILY 03/19/20 03/19/20 History Patient History Medical History Anxiety Atrial fibrillation DX 2012 HX OF CARDIOVERSION X 2 LAST ATRIAL FIB WAS ABOUT 5 YEARS AGO BPH (benign prostatic hyperplasia) CAD (coronary artery disease) Cardiac murmur follows with DR. WAY LAST ECHO 10/2017 Chronic constipation Esophageal dysphagia GERD (gastroesophageal reflux disease) History of cardioversion X2 HLD (hyperlipidemia) HTN (hypertension) Neurogenic bladder Neuropathic foot ulcer Neuropathy Osteoarthritis Paroxysmal atrial fibrillation Spina bifida Spinal cord tumor Surgical History History of right cataract surgery Hx of arthroscopic knee surgery LEFT Hx of colonoscopy Hx of esophagogastroduodenoscopy Hx of foot surgery RIGHT - STRAIGHTEN ANKLE AND UNSUCCESSFUL Hx of heart artery stent 2008 X2 STENT ([facility]) AT [facility] FOLLOW WITH DR WAY Hx of spinal surgery 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 Family History Other Breast cancer Heart disease Stroke Social History Smoking Status: Former smoker Second Hand Exposure: Yes (mother smoked); Hx Alcohol Use: No (former) Hx Substance Use: No Preferred Language: Thai Communication Ability: 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 No acute distress. HEENT: Normocephalic, atraumatic. Pupils equal, round and reactive to light and accommodation. Extraocular muscles are intact. Anicteric sclera. Moist mucous membranes. Neck: No JVD. No bruit. Cardiovascular: Regular. Positive S-4. Normal S-1 and S-2. No S-3. 3/6 holosystolic ejection murmur, left sternal border, mid-clavicular line with radiation to the axilla. No rubs. Pulmonary: Clear to auscultation bilaterally. No rales, rhonchi, or wheezing. Abdomen: Bowel sounds x 4, soft. No rebound, guarding or tenderness. No organomegaly. Extremities: No clubbing, cyanosis or edema. +2 pedal pulses bilaterally. Skin: Warm and dry. Results & Data ([facility]) Vital Signs (Past 12 Hours) Vital Signs Temp Pulse Pulse Resp BP Pulse Ox 03/20/20 09:17 125/70 03/20/20 08:30 77 104/64 03/20/20 08:15 36.6 C 78 17 95/62 L 93 03/20/20 04:00 36.5 C 74 18 104/61 90 03/19/20 23:23 74 03/19/20 23:00 36.3 C L 75 20 116/75 92 03/19/20 22:15 101/61 Diagnostic Findings Lexiscan nuclear stress: 03/06/2020 Interpretation Summary Myocardial perfusion imaging is normal. Overall left ventricular systolic function was normal without regional wall motion abnormalities. The left ventricular ejection fraction was >70%. There are no prior studies available for comparison. Resting echo 03/06/2020 Interpretation Summary The examination is adequate to evaluate the referral indication. The left ventricular cavity size is normal. The LV wall thickness is moderately increased (concentric). The left ventricular wall motion is normal. The qualitative LV ejection fraction is 55-59% (normal). Mild aortic valve sclerosis is present. There is moderate mitral annular calcification. There is heavy calcification of the anterior mitral valve leaflet and chordal structure with only mild restriction in leaflet mobility Mitral stenosis is absent. Mild mitral regurgitation is present. Mild tricuspid regurgitation is present.
[2020-03-20] MEDS ORDERED: POTASSIUM CHLORIDE CRTAB 20 MEQ TABCR PO STA (11:59)
--- NOTE | 2020-03-20 14:20 | Electrocardiogram Report ---
Test Reason : Blood Pressure : / mmHG Vent. Rate : 077 BPM Atrial Rate : 077 BPM P-R Int : 178 ms QRS Dur : 100 ms QT Int : 404 ms P-R-T Axes : 045 046 019 degrees QTc Int : 457 ms Normal sinus rhythm Possible Left atrial enlargement Borderline ECG When compared with ECG of 19-MAR-2020 13:02, No significant change was found Confirmed by Patrick Hawkins ([id number]) on 03/20/2020 2:20:19 PM Referred By: REFERRED SELF Confirmed By:Robert Hawkins
[2020-03-20] MEDS: APIXABAN 5 MG TABLET PO SCH ×2 (14:44→20:43)
[2020-03-20] MEDS: FUROSEMIDE 40 MG in SYRINGE 0 ML IV SCH (17:30)
--- NOTE | 2020-03-20 19:18 | Hospitalist Progress Note ---
Date of Service March 20, 2020 Assessment & Plan (1) Dyspnea on exertion: (2) Acute congestive heart failure: Per admitting service notes This is a 65-year-old male with PMH of paroxysmal atrial fibrillation on Sotalol, CAD (s/p PCI to LAD), moderate mitral regurgitation, HTN, HLD, spina bifida s/p repair, neurogenic bladder and other medical problems listed below who presents with worsening dyspnea on exertion x4 days. -Worsening dyspnea on exertion, orthopnea, PND, 10 pound weight gain -BNP greater than 10,000, d-dimer, 1,010, initial troponin negative. Mild leukocytosis of 11.89, COVID PCR negative -Chest CTA with no evidence of pulmonary embolus in the main, lobar, or seg mental pulmonary arteries but cardiomegaly with evidence of congestive failure and cardiac dysfunction -Recently seen by Dr. Way for pre-op evaluation on 02/20/20. Underwent Lexiscan NST which was normal and 2D echo on 03/06/20 with moderately increased (concentric) LV wall, preserved EF of 55-59%, mild AV sclerosis, moderate mitral annular calcification with heavy calcification of the anterior mitral valve leaflet and chordal structure. Mild MR and TR present -Given 20mg IV Lasix in ED as well as 1 L NSS, DuoNeb, 1 g and IV dexamethasone -Will give an additional 20 mg IV Lasix for total of 40 mg this evening and plan for another 40mg IV in AM -hold for SBP <100 -Low sodium diet, daily weights, supplemental O2 PRN, strict I&Os with vera catheter in place -Routine cardiology consult 03/20/2020 Improving, diuresing well Lasix 40 mg IV every 12 Spironolactone a.m. Appreciate cardiology service recommendations (3) HTN (hypertension): Hold lisinopril (4) Paroxysmal atrial fibrillation: Continue Sotalol Eliquis restarted (5) Coronary artery disease: S/P PCI LAD in 2010 Continue aspirin, rosuvastatin (6) Neuropathy: Continue gabapentin HS (7) Neuropathic foot ulcer: Per admitting service notes: -S/p amputation of fourth left metatarsal by Dr. Carvajal last week, due for next f/u appt -Fall precautions and foot care discussed- had dressing changed at recent appt and was not instructed to change on his own We will consult orthopedic service (8) Neurogenic bladder: Vera catheter in place DVT Ppx: Eliquis Code status: FULL PCP: Mehrdad Dispo: Possible discharge to home tomorrow medically stable, with home services Admission and Anticipated Discharge Date Admission Date: March 19, 2020 Subjective ff up for CHF exacerbation Seen resting in bed, comfortable, not in distress States he is starting to feel better Dyspnea almost resolved No coughing, no fever, no chills No chest pain, no palpitations, Denies other symptoms Review of Systems Review of Systems: All systems reviewed & are unremarkable except as noted in Subjective Physical Exam Physical Exam: General- oriented x 3, not in distress, speaks in sentences with no effort or accessory muscle use Eyes- anicteric Neck- no JVD Lungs- clear breath sounds bilaterally, no rales/wheezes Heart- normal rate, regular rhythm; no murmurs Abdomen- normal bowel sounds, nondistended, soft, nontender Extremities-right lower extremity: No pretibial edema, no calf tenderness Left lower extremity: Lower leg with heavy dressing in place, no bleeding or discharge; toes without edema, hematoma, bleeding, discharge Neuro- alert, oriented x 3; no gross focal neurologic deficits Skin- warm & dry Results & Data Results & Data ([facility]) Vital Signs (Past 12 Hours) Vital Signs Temp Pulse Pulse Resp BP BP Pulse Ox 03/20/20 16:00 78 03/20/20 15:30 36.6 C 97 H 18 97/63 L 93 03/20/20 11:33 37.0 C 76 18 92/62 L 93 03/20/20 09:17 125/70 03/20/20 08:30 77 104/64 03/20/20 08:15 36.6 C 78 17 95/62 L 93 Laboratory Results Laboratory Results - last 24 hr 03/20/20 03/20/20 03/20/20 05:50 06:46 06:46 WBC 6.62 RBC 4.41 L Hgb 13.8 L Hct 40.7 L MCV 92.3 MCH 31.3 MCHC 33.9 RDW Std Deviation 44.5 RDW Coeff of Elan 13.0 Plt Count 206 MPV 10.4 Sodium 138 Potassium 3.7 Chloride 105 Carbon Dioxide 23 Anion Gap 10.0 BUN 24 H Creatinine 1.27 Est Cr Clr Drug Dosing 59.1 Est GFR ( Amer) 69.2 Est GFR (Non-Af Amer) 59.7 BUN/Creatinine Ratio 19.0 Glucose 130 H Calcium 8.6 NT-Pro-B Natriuret Pep 5891 H Urine Color Dark Yellow Urine Appearance Clear Urine pH 5.0 Ur Specific [place] 1.036 H Urine Protein Negative Urine Glucose (UA) Negative Urine Ketones 2+ H Urine Blood Negative Urine Nitrite Negative Urine Bilirubin Negative Urine Urobilinogen Positive H Ur Leukocyte Esterase Negative
[2020-03-20] MEDS: DULoxetine HCL 60 MG CAP PO SCH (20:43)
[2020-03-20] MEDS: GABAPENTIN 300 MG CAP PO SCH (20:44)
[2020-03-21] MEDS ORDERED: DIGOXIN 250 MCG in SYRINGE 9 ML IV STA (01:57)
[2020-03-21] MEDS ORDERED: POTASSIUM CHLORIDE CRTAB 20 MEQ TABCR PO STA (01:57)
[2020-03-21] MEDS ORDERED: ALBUMIN 25% 12.5 GM/50 ML VIAL IV ONE (01:59)
[2020-03-21 02:41] LABS: Basophils # (auto) 0.04 K/uL (0-0.2); Basophils % (auto) 0.3 %; Eosinophils # (auto) 0.16 K/uL (0-0.5); Eosinophils % (auto) 1.1 %; Hemoglobin 14.3 g/dL (14.0-18.0); Immature Granulocytes # (auto) 0.11 K/uL (0.00-0.02); Immature Granulocytes % (auto) 0.7 %; Lymphocytes # (auto) 1.54 K/uL (1.2-3.4); Lymphocytes % (auto) 10.2 %; Mean Corpuscular Hemoglobin 31.8 pg (25-34); Mean Corpuscular Volume 93.5 fL (80-100); Mean Platelet Volume 10.7 fL (7.4-10.4); Monocytes # (auto) 1.55 K/uL (0.11-0.59); Monocytes % (auto) 10.2 %; Neutrophils # (auto) 11.77 K/uL (1.4-6.5); Neutrophils % (auto) 77.5 %; Platelet Count 274 K/uL (130-400); RDW Coefficient of Variation 13.2 % (11.5-14.5); Red Blood Count 4.49 M/uL (4.7-6.1); White Blood Count 15.17 K/uL (4.8-10.8)
[2020-03-21 03:24] LABS: BUN Creatinine Ratio 26.8 (10-20); Calcium 8.5 mg/dl (8.5-10.1); Creatinine Clr Calc Pharmacy 54.4 ml/min; Est GFR (African American) 62.6; Magnesium 2.2 mg/dl (1.8-2.4); Potassium 4.7 mmol/L (3.5-5.1)
[2020-03-21] MEDS: SOTALOL HCL 80 MG TAB PO SCH ×2 (04:21→20:08)
[2020-03-21] MEDS: ALBUMIN 25% 12.5 GM/50 ML VIAL IV SCH ×2 (04:30→05:29)
[2020-03-21] MEDS: ROSUVASTATIN CALCIUM 20 MG TAB PO SCH (07:48)
[2020-03-21] MEDS: ASPIRIN 81 MG ECTAB PO SCH (07:49)
[2020-03-21] MEDS: OMEGA-3 (PURIFIED FISH OIL) 1 GM CAP PO SCH ×2 (07:50→20:07)
[2020-03-21] MEDS: PANTOprazole 40 MG TAB PO SCH ×2 (07:50→20:09)
[2020-03-21] MEDS: APIXABAN 5 MG TABLET PO SCH ×2 (07:50→20:10)
[2020-03-21] MEDS ORDERED: SPIRONOLACTONE 12.5 MG TAB PO SCH (09:00)
--- NOTE | 2020-03-21 09:40 | XRay Report ---
XR chest 1V portable CLINICAL HISTORY: shortness of breath COMPARISON STUDY: Chest radiograph and chest CT March 19, 2020. FINDINGS: There is no pneumothorax. Small bilateral pleural effusions are again noted. Interstitial t hickening and bilateral opacities have slightly increased. Cardiomegaly is again noted. IMPRESSION: 1. Increase in interstitial thickening and bilateral opacities which favor pulmonary edema. An infect ious process could appear similar but is considered less likely. 2. Small bilateral pleural effusions. ACT 112: Negative or not required by law. Electronically signed by: Ten Macias M.D. 03/21/2020 9:39 AM
[2020-03-21] MEDS: FUROSEMIDE 40 MG in SYRINGE 0 ML IV SCH (09:57)
[2020-03-21] MEDS ORDERED: MIDAZOLAM HCL 1 MG/ML 2ML VIAL ONE ×2 (11:42→13:28)
[2020-03-21] MEDS ORDERED: HEPARIN (PORCINE) 1000 UNIT/ML 10 ML (CATH LAB USE ONLY) ONE ×2 (11:42→13:48)
[2020-03-21] MEDS ORDERED: fentaNYL citrate 100 MCG/2 ML VIAL ONE ×2 (11:42→13:28)
[2020-03-21] MEDS ORDERED: niCARdipine HCL INJ 2.5 MG/ML 10 ML AMP ONE (11:42)
[2020-03-21] MEDS ORDERED: NITROGLYCERIN/D5W 100MCG/ML 20ML SYR ONE (11:43)
--- NOTE | 2020-03-21 11:48 | Pre Anesthesia Assessment ---
Date of Service March 21, 2020 Pre Sedation Assessment Vital Signs Temp Pulse Pulse Resp BP BP Pulse Ox 03/21/20 11:39 79 16 99/68 L 97 03/21/20 09:45 82 22 104/66 92 03/21/20 07:33 36.3 C L 88 12 93/61 L 98 03/21/20 04:19 37.0 C 114 H 20 105/71 91 03/21/20 02:31 93 H 20 111/74 94 03/21/20 01:46 37.4 C 118 H 24 96/68 L 90 03/20/20 23:00 36.6 C 84 20 93/57 L 91 03/20/20 20:43 88 97/63 L 03/20/20 20:02 36.8 C 80 18 96/66 L 90 03/20/20 16:00 78 03/20/20 15:30 36.6 C 97 H 18 97/63 L 93 Cardiovascular + regular rate Respiratory + respiratory effort normal Pre-Sedation Airway Assessment Smoking Status: Former smoker Hx Sleep Apnea: No Hx Difficult Intubation: No Short, Thick Neck: No Oral Cavity: + WNL Mallampati Class: III ASA: ASA3 NPO Status Date of Last Intake of Fluids: 03/21/20 Time of Last Intake of Fluids: 07:30 Date of Last Intake of Solid Food: 03/20/20 Time of Last Intake of Solid Foods: 18:30 Procedure Planning Contraindications for Sedation: none Current Medications Reviewed: Yes Notes The planned sedation has been discussed with the patient. Informed Consent was obtained. I have identified the patient, determined the appropriateness of sedation and have assessed the patient immediately prior to the procedure. All medicine(s) and interventions are by my order.
--- NOTE | 2020-03-21 12:26 | Cardiology Progress Note ---
Date of Service March 21, 2020 Assessment & Plan (1) Heart failure, diastolic, with acute decompensation: (2) Mitral valve regurgitation: (3) Dyspnea on exertion: (4) Pulmonary edema: (5) HTN (hypertension): (6) Paroxysmal atrial fibrillation: Patient's clinical status declining despite ongoing IV diuresis. Outpatient ischemic work-up was unremarkable but given ongoing symptoms I am concerned that that may have represented balanced ischemia. Does have a history of moderate mitral regurgitation as well. So at this time we will proceed with a right and left cardiac cath to further evaluate for any possible cause of shortness of breath. Patient does not examine his volume overloaded and will DC IV diuretics at this time. cardiac cath demonstrated significant mid LAD disease s/p EDILMA placement nonobstructive disease disease of left main and ostial LAD cont medical therapy will need anxiety control as well may consider psych eval for med management Admission and Anticipated Discharge Date Admission Date: March 20, 2020 Subjective Patient seen and examined, chart reviewed. Patient in mild distress currently states his breathing worsens despite current treatment. but nothing significant that he notes. Has had some output with IV Lasix Patient currently very anxious. Denies any chest pain, palpitations, lightheadedness, dizziness or syncope. Telemetry reviewed: Review of Systems Review of Systems: All systems reviewed & are unremarkable except as noted in HPI & below Physical Exam Physical Exam: General: Awake, alert and oriented x 3. Anxious. Mild conversational dyspnea. HEENT: Normocephalic, atraumatic. Pupils equal, round and reactive to light and accommodation. Extraocular muscles are intact. Anicteric sclera. Moist mucous membranes. Neck: No JVD. No bruit. Cardiovascular: Regular. Positive S-4. Normal S-1 and S-2. No S-3. 3/6 holosystolic ejection murmur, left sternal border, mid-clavicular line with radiation to the axilla. No rubs. Pulmonary: Clear to auscultation bilaterally. No rales, rhonchi, or wheezing. Abdomen: Bowel sounds x 4, soft. No rebound, guarding or tenderness. No organomegaly. Extremities: No clubbing, cyanosis or edema. +2 pedal pulses bilaterally. Skin: Warm and dry. Results & Data ([facility]) Vital Signs (Past 12 Hours) Vital Signs Temp Pulse Resp BP BP Pulse Ox 03/21/20 11:39 79 16 99/68 L 97 03/21/20 09:45 82 22 104/66 92 03/21/20 07:33 36.3 C L 88 12 93/61 L 98 03/21/20 04:19 37.0 C 114 H 20 105/71 91 03/21/20 02:31 93 H 20 111/74 94 03/21/20 01:46 37.4 C 118 H 24 96/68 L 90
[2020-03-21] MEDS ORDERED: ADENOSINE IV SOLN 3 MG/ML 20 ML VIAL IV ONE (12:37)
[2020-03-21] MEDS ORDERED: CLOPIDOGREL BISULFATE 300 MG TAB ONE (13:58)
--- NOTE | 2020-03-21 14:06 | Post Anesthesia Assessment ---
Date of Service March 21, 2020 Post Sedation Assessment Vital Signs Temp Pulse Pulse Resp BP BP Pulse Ox 03/21/20 11:39 79 16 99/68 L 97 03/21/20 09:45 82 22 104/66 92 03/21/20 07:33 97.3 F L 88 12 93/61 L 98 03/21/20 04:19 98.6 F 114 H 20 105/71 91 03/21/20 02:31 93 H 20 111/74 94 03/21/20 01:46 99.3 F 118 H 24 96/68 L 90 03/20/20 23:00 97.9 F 84 20 93/57 L 91 03/20/20 20:43 88 97/63 L 03/20/20 20:02 98.2 F 80 18 96/66 L 90 03/20/20 16:00 78 03/20/20 15:30 97.9 F 97 H 18 97/63 L 93 Recovery Score Activity: Moves 4 extremities Respiration: Deep Breath/Cough Circulation: +/-20% PreAnes Value Consciousness: Fully Awake Oxygen Saturation: O2 needed for >90% Discharge Sedation Level of Care: Fast Track Phase II Post Sedation Plan On clinical assessment, the patient appears to have tolerated the sedation without complications. Patient is recovering as anticipated. Patient will continue to be monitored by nursing and may be discharged when sedation discharge criteria are met per below protocol. Upon Completions of procedure up to 15 minutes continue every 5 minute vital signs and the P.A.R. score; then discharge to a Phase I or Fast Track to Phase II per the following guidelines: * Discharge Patient to appropriate Phase II area if PAR is 8 or greater or return to pre- procedure baseline. The post - procedure orders will be as directed. * If PAR score is less than 8 or not return to pre-procedure baseline then patient will follow Phase I monitoring till PAR is reached for Phase II. The Phase I may be done in procedure room or may call to secure a Phase I area. * If naloxone or flumazenil are used for reversal, hold in Phase I for continued monitoring from when last reversal dose was given for a minimum of 60 minutes or longer pending the nurse and/or physician discretion of patient condition before discharge to Phase II. Please call the Sedation Physician to re-evaluate and complete post-note for discharge to Phase II area. Do NOT discharge from procedure sedation or Phase 1 until post- sedation evaluation note is complete by procedure /sedation MD Sedation Discharge Instructions to be given to the patient at discharge to home.
[2020-03-21 14:15] LABS: iSTAT Arterial Blood Gas HCO3 19 meg/L (19-24); iSTAT Arterial Blood Gas pCO2 27 mmHg (35-46); iSTAT Arterial Blood Gas pH 7.45 (7.35-7.45); iSTAT Arterial Blood Gas pO2 64 mmHg (80-95); iSTAT Carbon Dioxide 20 mmol/L (24-31)
[2020-03-21 14:15] LABS: iSTAT Arterial Blood Gas HCO3 21 meg/L (19-24); iSTAT Arterial Blood Gas pCO2 30 mmHg (35-46); iSTAT Arterial Blood Gas pH 7.46 (7.35-7.45); iSTAT Arterial Blood Gas pO2 68 mmHg (80-95); iSTAT Carbon Dioxide 22 mmol/L (24-31)
[2020-03-21 14:15] LABS: iSTAT Arterial Blood Gas HCO3 22 meg/L (19-24); iSTAT Arterial Blood Gas pCO2 33 mmHg (35-46); iSTAT Arterial Blood Gas pH 7.44 (7.35-7.45); iSTAT Arterial Blood Gas pO2 33 mmHg (80-95); iSTAT Carbon Dioxide 23 mmol/L (24-31)
--- NOTE | 2020-03-21 14:18 | Cardiac Catheterization ---
[facility] Data: Machine Cloth Trimmer Cardiac Status Clinical evaluation leading to the procedure CAD Presenation: Unstable angina Anginal Classification: CCS III Heart Failure: No Cardiogenic Shock within 24 Hours: No Cardiac Arrest within 24 Hours: No Imaging Studies Past 6 Months: Yes Stress Studies Past 6 Months: Yes Stress Echocardiogram: Yes - Negative Diagnostic Physicians Name: Patrick Munoz MD Status: Elective Closure Device Percutaneous Entry Location: Radial Closure Device: Radial Band Recommendations: PCI without planned CABG PCI Indication: Angina despite med therapy and Unstable Angina Lesion Segment Name: Mid LAD Culprit Artery: Yes Stenosis Prior to Rx (%): 70 Chronic Total Occlusion: No IVUS: Yes FFR: Yes Pre-Procedure YENNY Flow: 3 Previously Treated Lesion: No Lesion Complexity: Non-High/Non-C Lesion Length (mm): 12 Thrombus Present: No Bifurcation Lesion: Yes Guidewire Across Lesion: Stenosis Post-Procedure (%): 0 Post-Procedure YENNY Flow: 3 Devices(s) Deployed: Yes Yes Intraprocedure Events Significant Disection: No Perforation: No Cardiac Cath Procedure Full Procedure Date March 21, 2020 Pre-Procedure Diagnosis Pre-Procedure Diagnosis: Angina AUC Score AUC Score: 7 Post-Procedure Diagnosis Post-Procedure Diagnosis: Severe CAD and Successful PCI Procedure(s) Performed Procedure(s) Performed: Coronary Angiography, Left Heart Cath, IVUS and Fractional Flow [place] Driller Operator Patrick Munoz MD Development Disability Specialist(s) Ofe Estimated Blood Loss Estimated Blood Loss: 15 Medication(s) Medication(s): Clopidogrel, Fentanyl, Heparin, Lidocaine 1%, Nicardipine, Nitroglycerin and Versed Summary of Findings Indication: History of CAD with refractory angina Access: 6 Fr right radial artery Catheters: EBU 3.5 guide Findings: For full details of patient's coronary angiography please see cath report dictated by Dr. Hawkins. Briefly, patient found to have intermediate ostial/proximal LAD, mid LAD di sease. Decision to evaluate further with FFR plus or minus IVUS. Procedures Main cannulated with EBU 3.5 guide BMW wire placed in the distal LAD Attempted to place ACIST FFR catheter into mid LAD but unable to pass severe stenosis at takeoff of first diagonal/septal FFR catheter removed. Attempted to pass minimally stenosis with Neotropix IVUS catheter but again could not deliver catheter to stent. IVUS pullback across proximal LAD, left main revealed eccentric 50% calcified plaque in proximal LAD, no significant ostial disease, 20-30% mildly calcified plaque in proximal left main As unable to pass catheters mid LAD stenosis upstream from prior stent to be severe decision to proceed with PCI Mid LAD lesion predilated with 2.0 compliant balloon Dilated lesion stented with 3.0 x 18 mm Jose Ramon drug-eluting stent overlapping with proximal aspect of prior mid LAD stent Stent post-dilated with 3.5 noncompliant balloon Repeat IVUS showed well-expanded, well apposed stent with no apparent edge complications IC vasodilators administered for spasm Post procedure YENNY 3 flow, stent well expanded with minimal residual stenosis. Residual stenosis in first and second diagonal but YENNY-3 flow in both vessels. Arterial Closure: TR band Summary: 1. Successful PCI of mid LAD with single drug-eluting stent (3.0 x 18 mm Jose Ramon; postdilated with 3.5 NC) overlapping with proximal aspect of prior stent. Recommendations: To PCU for continued monitoring Loaded with clopidogrel 600 mg in Machine Cloth Trimmer Continue dual-antiplatelet therapy for at least 1 year Continue statin, and ASCVD risk factor modification Consult cardiac Rehab Hemodynamics Rest Ao:: 77/54/63 Final Ao: 74/55/58 LV: -- Recommendations Recommendations: PCI without planned CABG Specimens Specimens: None Radiation Exposure (mGy) 3927 Contrast (mls) 150 Fluids (cc crystalloids) Fluids (cc crystalloids): 250 Drains Drains: None Anesthesia Moderate Procedural Complication(s) None Disposition PCU I attest to the content of the Intraoperative Record and any orders documented therein. Any exceptions are noted below. [facility] Card Cath Procedure Codes Cardiac Catheterization Procedure 1: Cardiovascular Cath Procedures: 53019 (Doppler) Pressure Wire Therapeutic Services & Ancillary Proc Procedure 1: Cardiovascular Tx and Anc Procedures: 90457 IV Ultrasound (Coronary or Graft) Moderate Sedation Procedure 1: Sedation/Anesthesia: 38787 Mod Sedation by the same physician; Ea [id number] Minutes Stenting Procedure 1: Cardiovascular Stent Procedures: 67393 Perc transcatheter placement of intracoronary stent(s), with ang PG Care Time/CCT Total # of Minutes Spent Total Time Spent with Patient: Total time spent is greater than 50% in coordination of care (as documented) at patient's floor/unit and/or counseling patient:
[2020-03-21] MEDS ORDERED: SODIUM CHLORIDE 0.9% 1000ML 1,000 ML IV SCH (14:30)
[2020-03-21] MEDS: LORazepam 0.5 MG TAB PO PRN ×2 (16:37→23:04)
--- NOTE | 2020-03-21 17:32 | Cardiac Catheterization ---
[facility] Data: .Net Architect Cardiac Status Clinical evaluation leading to the procedure CAD Presenation: Stable angina Diagnostic Physicians Name: Patrick Hawkins MD Closure Device Recommendations: PCI without planned CABG Cardiac Cath Procedure Full Procedure Date March 21, 2020 Pre-Procedure Diagnosis Pre-Procedure Diagnosis: Angina AUC Score AUC Score: 7 Post-Procedure Diagnosis Post-Procedure Diagnosis: Severe CAD Procedure(s) Performed Procedure(s) Performed: Coronary Angiography, Left Heart Cath and Right Heart Cath Cocktail Lounge Manager Patrick Hawkins MD Bleach Plant Operator(s) Ofe Estimated Blood Loss Estimated Blood Loss: 10 Medication(s) Medication(s): Clopidogrel, Fentanyl, Heparin, Lidocaine 1%, Nicardipine, Nitroglycerin and Versed Summary of Findings Procedure performed: Left heart catheterization, selective coronary angiography, right heart catheterization Staff leather stripping machine operator: Patrick Vann MD Indication: The patient is a 65-year-old gentleman with a history of coronary disease having previously undergone percutaneous intervention to the LAD. He has been complaining of persistent dyspnea. Catheterization is being used to evaluate coronary stenosis and intracardiac and intrapulmonary pressures. Procedure in detail: The patient was informed of the risks benefits and alternatives to the intended procedure. He understood which proceed. He was taken to the cardiac catheterization suite in a fasting state. Conscious sedation was administered per protocol the patient was monitored electrocardiographically throughout today's procedure. The right antecubital areas prepped and draped in usual sterile fashion. The right antecubital vein was accessed and a venous sheath was placed over guidewire at this site. This sheath was used to facilitate passage of a balloon tipped catheter for measurement of cardiac and pulmonary pressures. Hemodynamic measurements including thermodilution cardiac output were also obtained. This catheter and sheath were subsequently removed and hemostasis was achieved at the access site using manual pressure. The area of the right radial artery was subsequently anesthetized using subcutaneous lidocaine. Right radial artery was accessed using Seldinger technique and sheath was placed over guidewire this site. The sheath use facilitate passage of the cardiac catheter for engagement of the coronary arteries, selective coronary angiography and left heart catheterization. Images were taken in multiple orthogonal views prior to removal of the catheter. Based on these findings patient underwent an invasive evaluation of coronary stenosis. He tolerated this portion of the procedure well. There were no immediate complications. Equipment used: Six Kiswahili balloon tipped PA catheter Five Kiswahili tiger 4 Coronary angiography: Left main: Left main was normal in size and caliber and bifurcated into the left anterior descending, left circumflex and a diminutive ramus intermedius branch. There is no significant stenosis in this vessel Left anterior descending: Left anterior descending was a large transapical vessel. There was a suggestion of ostial disease, at worst 50%. There were 2 medium-sized diagonal branches immediately prior to a previously placed stent. There was an angulated lesion just prior to the previously placed stent of unclear severity. There appeared to be a 50% stenosis just distal to the stent with minimal InStent restenoses. Left circumflex: Left circumflex was a dominant vessel. It produced a large 1st OM branch, medium size 2nd OM branch and a large 3rd OM/PDA branch. There was YENNY 2 filling of the distal vasculature. There appeared to be a 50% stenosis just prior to the takeoff of the 3rd obtuse marginal. Right coronary artery: The right coronary artery was small. No evidence of obstructive disease. Impression: Patent stent in the LAD without significant InStent restenosis Obstructive lesions in the mid and distal LAD of unclear severity Left dominant coronary system No evidence of aortic stenosis Mildly elevated left ventricular filling pressures Mildly elevated pulmonary pressures Hemodynamics Rest Ao:: 78/53 mm Hg Final Ao: 84/54 mm Hg LV: 71/5 mm of mercury left ventricular end-diastolic pressure of 19 mm of mercury RA: 11 mm of mercury RV: 43/3 mm of mercury PA: 43/22 mm Hg PW: 20 mm Hg Recommendations Recommendations: PCI without planned CABG Specimens Specimens: None Radiation Exposure (mGy) 1174 Contrast (mls) Forty Fluids (cc crystalloids) Fluids (cc crystalloids): 250 Drains Drains: None Anesthesia Moderate Procedural Complication(s) None Disposition PCU I attest to the content of the Intraoperative Record and any orders documented therein. Any exceptions are noted below. [facility] Card Cath Procedure Codes Cardiac Catheterization Procedure 1: Cardiovascular Cath Procedures: 66093 Coronaries & LHC (+/-LV) & RHC Moderate Sedation Procedure 1: Sedation/Anesthesia: 78929 Mod Sedation by the same physician;Init15 Min Child Age 5 & Up PG Care Time/CCT Total # of Minutes Spent Total Time Spent with Patient: Total time spent is greater than 50% in coordination of care (as documented) at patient's floor/unit and/or counseling patient:
--- NOTE | 2020-03-21 18:31 | Orthopedic Consultation ---
Date of Consultation March 21, 2020 Assessment & Plan (1) Status post foot joint surgery: The splint and dressings are clean dry and intact. We discussed the patient with Dr. Carvajal's team. The plan for now is to leave the dressing in place. They will be in house tomorrow to check on him but the plan for now is to keep the current dressing in place for another week when he is seen in the outpatient office. History of Present Illness Attending Physician: Manuel Ayala MD History of Present Illness Patient recently had surgery with Dr. Carvajal about a week ago. He was recently seen in the office and his dressing was changed. Everything was looking good. He currently has no complaints of the foot. He says he has little bit of numbness but really not having any pain. He states he is not having any difficulty with the foot and is overall pleased thus far Allergies Allergy/AdvReac Type Severity Reaction Status Date / Time Bactrim Allergy Intermediate RASH Verified 11/14/16 02:28 sulfamethoxazole Allergy Intermediate RASH Verified 03/19/20 17:04 trimethoprim Allergy Intermediate RASH Verified 09/01/19 13:53 Home Medications Home Medications Medication Instructions Recorded Confirmed Type bisacodyl 5 mg PO DAILY PRN 05/02/19 03/19/20 History duloxetine 60 mg PO HS 05/02/19 03/19/20 History gabapentin 300 mg PO HS 05/02/19 03/19/20 History omeprazole 20 mg PO BID 05/02/19 03/19/20 History sotalol 160 mg PO BID 05/02/19 03/19/20 History aspirin 81 mg tablet,delayed 81 mg PO DAILY 08/30/19 03/19/20 History release acetaminophen [Mapap 650 mg PO Q4H PRN #50 tab 09/04/19 03/19/20 Rx (acetaminophen)] [id number] 1 cap PO DAILY 03/19/20 03/19/20 History [Glucosamine Chondroitin PLUS] lisinopril 5 mg PO QAM 03/19/20 03/19/20 History omega 2-cyq-fmv-fish oil [Fish Oil] 1 cap PO BID 03/19/20 03/19/20 History rosuvastatin 40 mg PO DAILY 03/19/20 03/19/20 History Patient History Medical History Anxiety Atrial fibrillation DX 2013 HX OF CARDIOVERSION X 2 LAST ATRIAL FIB WAS ABOUT 5 YEARS AGO BPH (benign prostatic hyperplasia) CAD (coronary artery disease) Cardiac murmur follows with DR. ARREDONDO LAST ECHO 10/2017 Chronic constipation Esophageal dysphagia GERD (gastroesophageal reflux disease) History of cardioversion X2 HLD (hyperlipidemia) HTN (hypertension) Neurogenic bladder Neuropathic foot ulcer Neuropathy Osteoarthritis Paroxysmal atrial fibrillation Spina bifida Spinal cord tumor Surgical History History of right cataract surgery Hx of arthroscopic knee surgery LEFT Hx of colonoscopy Hx of esophagogastroduodenoscopy Hx of foot surgery RIGHT - STRAIGHTEN ANKLE AND UNSUCCESSFUL Hx of heart artery stent 2008 X2 STENT (EDILMA) AT [facility] FOLLOW WITH DR ARREDONDO Hx of spinal surgery 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 Family History Other Breast cancer Heart disease Stroke Social History Smoking Status: Former smoker Second Hand Exposure: Yes (mother smoked); Hx Alcohol Use: No (former) Hx Substance Use: No Preferred Language: Japanese Communication Ability: Effective Silk Presser Required: No Beliefs That Will Affect Care: None Current Living Situation: Spouse Feels Safe at Home: Yes Assistive Devices: Crutches Physical Exam Constitutional: WD/WN, vitals as above Neck: normal visual inspection Respiratory: normal respiratory effort Cardiovascular: Extremities: normal capillary refill Musculoskeletal: The foot has a posterior splint placed. The foot is dressed. Pins are present and have caps in place. Cap refill appears to be normal. No drainage is noted on the dressing. Results & Data ([facility]) Vital Signs (Past 12 Hours) Vital Signs Temp Pulse Pulse Resp BP Pulse Ox 03/21/20 15:33 36.5 C 114 H 20 95/63 L 97 03/21/20 15:24 36.7 C 102 H 21 94/64 L 95 03/21/20 15:03 105 H 94/56 L 93 03/21/20 14:48 103 H 03/21/20 14:47 36.6 C 91 H 18 98/66 L 93 03/21/20 14:20 102 H 16 109/74 96 03/21/20 14:05 105 H 16 114/85 96 03/21/20 11:39 79 16 99/68 L 97 03/21/20 09:45 82 22 104/66 92 03/21/20 07:33 36.3 C L 88 12 93/61 L 98
--- NOTE | 2020-03-21 19:53 | Hospitalist Progress Note ---
Date of Service March 21, 2020 Assessment & Plan (1) Heart failure, diastolic, with acute decompensation: (1) Dyspnea on exertion: (2) Acute on chronic diastolic congestive heart failure: Stable angina, history of CAD, status post PCI to the LAD in 2010 Per admitting service notes This is a 65-year-old male with PMH of paroxysmal atrial fibrillation on Sotalol, CAD (s/p PCI to LAD), moderate mitral regurgitation, HTN, HLD, spina bifida s/p repair, neurogenic bladder and other medical problems listed below who presents with worsening dyspnea on exertion x4 days. -Worsening dyspnea on exertion, orthopnea, PND, 10 pound weight gain -BNP greater than 10,000, d-dimer, 1,010, initial troponin negative. Mild leukocytosis of 11.89, COVID PCR negative -Chest CTA with no evidence of pulmonary embolus in the main, lobar, or segmental pulmonary arteries but cardiomegaly with evidence of congestive failure and cardiac dysfunction -Recently seen by Dr. Way for pre-op evaluation on 02/20/20. Underwent Lexiscan NST which was normal and 2D echo on 03/06/20 with moderately increased (concentric) LV wall, preserved EF of 55-59%, mild AV sclerosis, moderate mitral annular calcification with heavy calcification of the anterior mitral valve leaflet and chordal structure. Mild MR and TR present -Given 20mg IV Lasix in ED as well as 1 L NSS, DuoNeb, 1 g and IV dexamethasone -Will give an additional 20 mg IV Lasix for total of 40 mg this evening and plan for another 40mg IV in AM -hold for SBP <100 -Low sodium diet, daily weights, supplemental O2 PRN, strict I&Os with vera catheter in place -Routine cardiology consult 03/20/2020 Given IV Lasix 40 mg IV every 12, spironolactone Diuresed well 03/21/2020 however still was having dyspnea, status post cardiac cath with PCI, stent placement to the LAD Plavix added to aspirin, rosuvastatin continued Hold Lasix and spironolactone, patient is euvolemic today (3) HTN (hypertension): Blood pressure borderline, hold lisinopril (4) Paroxysmal atrial fibrillation: Continue Sotalol Eliquis restarted (5) Coronary artery disease: S/P PCI LAD in 2011 Management per #1 (6) Neuropathy: Continue gabapentin HS (7) Neuropathic foot ulcer: Per admitting service notes: -S/p amputation of fourth left metatarsal by Dr. Carvajal last week, due for next f/u appt -Fall precautions and foot care discussed- had dressing changed at recent appt and was not instructed to change on his own - Orthopedic Service consulted (8) Neurogenic bladder: Patient does straight cath at home (9) Anxiety As needed Ativan ordered Psychiatry consulted DVT Ppx: Eliquis Code status: FULL PCP: Mehrdad Dispo: Anticipate discharge to home with home services are medically stable, cleared by cardiology service Admission and Anticipated Discharge Date Admission Date: March 20, 2020 Subjective Follow-up for shortness of breath, CHF, etc. Patient continued to have dyspnea on exertion today Taken to cardiac cath, status post PCI with stent placement to the LAD Seen at telemetry unit, patient is sitting up, comfortable, not in distress States dyspnea has resolved, no chest pain, nausea vomiting, dizziness, palpitations Does report feeling anxious No other symptoms Review of Systems Review of Systems: All systems reviewed & are unremarkable except as noted in Subjective Physical Exam Physical Exam: General- oriented x 3, not in distress, speaks in sentences with no effort or accessory muscle use Eyes- anicteric Neck- no JVD Lungs- clear BS bilaterally, no crackles or wheezing Heart- normal rate, regular rhythm; no murmurs Abdomen- normal bowel sounds, nondistended, soft, nontender Extremities- no pretibial edema, no calf tenderness Left foot, heavy dressing with splint in place, normal-appearing toes Neuro- alert, oriented x 3; no gross focal neurologic deficits Skin- warm & dry Results & Data Results & Data ([facility]) Vital Signs (Past 12 Hours) Vital Signs Temp Pulse Pulse Resp BP Pulse Ox 03/21/20 19:09 36.5 C 96 H 20 95/63 L 100 03/21/20 15:33 36.5 C 114 H 20 95/63 L 97 03/21/20 15:24 36.7 C 102 H 21 94/64 L 95 03/21/20 15:03 105 H 94/56 L 93 03/21/20 14:48 103 H 03/21/20 14:47 36.6 C 91 H 18 98/66 L 93 03/21/20 14:20 102 H 16 109/74 96 03/21/20 14:05 105 H 16 114/85 96 03/21/20 11:39 79 16 99/68 L 97 03/21/20 09:45 82 22 104/66 92 Laboratory Results Laboratory Results - last 24 hr 03/21/20 03/21/20 03/21/20 02:15 02:15 02:15 WBC 15.17 H RBC 4.49 L Hgb 14.3 Hct 42.0 MCV 93.5 MCH 31.8 MCHC 34.0 RDW Std Deviation 45.0 RDW Coeff of Elan 13.2 Plt Count 274 MPV 10.7 H Immature Gran % (Auto) 0.7 Neut % (Auto) 77.5 Lymph % (Auto) 10.2 [facility] % (Auto) 10.2 Eos % (Auto) 1.1 Baso % (Auto) 0.3 Neut # (Auto) 11.77 H Lymph # (Auto) 1.54 [facility] # (Auto) 1.55 H Eos # (Auto) 0.16 Baso # (Auto) 0.04 Immature Gran # (Auto) 0.11 H Activ Coag Time Kaolin POC pH POC pCO2 POC pO2 POC HCO3 POC Total CO2 POC Base Excess POC ABG O2 Sat Sodium 138 Potassium 4.7 D Chloride 106 Carbon Dioxide 27 Anion Gap 5.0 BUN 37 H D Creatinine 1.38 Est Cr Clr Drug Dosing 54.4 Est GFR ( Amer) 62.6 Est GFR (Non-Af Amer) 54.0 BUN/Creatinine Ratio 26.8 H Glucose 112 H Lactate 2.6 H* Calcium 8.5 Magnesium 2.2 03/21/20 03/21/20 03/21/20 12:11 12:19 12:32 WBC RBC Hgb Hct MCV MCH MCHC RDW Std Deviation RDW Coeff of Elan Plt Count MPV Immature Gran % (Auto) Neut % (Auto) Lymph % (Auto) [facility] % (Auto) Eos % (Auto) Baso % (Auto) Neut # (Auto) Lymph # (Auto) [facility] # (Auto) Eos # (Auto) Baso # (Auto) Immature Gran # (Auto) Activ Coag Time Kaolin POC pH 7.44 7.46 H 7.45 POC pCO2 33 L 30 L 27 L POC pO2 33 L 68 L 64 L POC HCO3 22 21 19 POC Total CO2 23 L 22 L 20 L POC Base Excess -2.0 -3.0 -5.0 POC ABG O2 Sat 67.0 L 95.0 94.0 Sodium Potassium Chloride Carbon Dioxide Anion Gap BUN Creatinine Est Cr Clr Drug Dosing Est GFR ( Amer) Est GFR (Non-Af Amer) BUN/Creatinine Ratio Glucose Lactate Calcium Magnesium 03/21/20 13:33 WBC RBC Hgb Hct MCV MCH MCHC RDW Std Deviation RDW Coeff of Elan Plt Count MPV Immature Gran % (Auto) Neut % (Auto) Lymph % (Auto) [facility] % (Auto) Eos % (Auto) Baso % (Auto) Neut # (Auto) Lymph # (Auto) [facility] # (Auto) Eos # (Auto) Baso # (Auto) Immature Gran # (Auto) Activ Coag Time Kaolin 268 H POC pH POC pCO2 POC pO2 POC HCO3 POC Total CO2 POC Base Excess POC ABG O2 Sat Sodium Potassium Chloride Carbon Dioxide Anion Gap BUN Creatinine Est Cr Clr Drug Dosing Est GFR ( Amer) Est GFR (Non-Af Amer) BUN/Creatinine Ratio Glucose Lactate Calcium Magnesium
[2020-03-21] MEDS: GABAPENTIN 300 MG CAP PO SCH (20:09)
[2020-03-21] MEDS: DULoxetine HCL 60 MG CAP PO SCH (20:10)
[2020-03-22] MEDS: ROSUVASTATIN CALCIUM 20 MG TAB PO SCH (08:00)
[2020-03-22] MEDS: APIXABAN 5 MG TABLET PO SCH (08:00)
[2020-03-22] MEDS: SOTALOL HCL 80 MG TAB PO SCH (08:00)
[2020-03-22] MEDS: OMEGA-3 (PURIFIED FISH OIL) 1 GM CAP PO SCH (08:01)
[2020-03-22] MEDS: ASPIRIN 81 MG ECTAB PO SCH (08:01)
[2020-03-22] MEDS: PANTOprazole 40 MG TAB PO SCH (08:01)
[2020-03-22] MEDS ORDERED: CLOPIDOGREL BISULFATE 75 MG TAB PO SCH (09:00)
[2020-03-22 09:47] LABS: BUN Creatinine Ratio 24.2 (10-20); Calcium 8.8 mg/dl (8.5-10.1); Creatinine Clr Calc Pharmacy 70.5 ml/min; Est GFR (African American) 86.1; Est GFR (Non-African American) 74.3; Potassium 3.7 mmol/L (3.5-5.1)
--- NOTE | 2020-03-22 10:18 | Psychiatric Consultation ---
Date of Consultation March 22, 2020 Impression / Recommendations Impression Dr. Jonh Lozano was directly involved in review and discussion of the patient's case and participated in medical decision making regarding treatment recommendations. RECOMMENDATIONS: 03/22 - Psychiatric consultation was requested by our cardiology service to evaluate patient for exacerbation of anxiety and assist with medication recommendations. Pt admits to somewhat inconsistent meetings with an outpatient therapist, otherwise medications are prescribed by his PCP. 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 Pt does have a history of treatment for anxiety and depression, p rimarily in the setting of previous inpatient D&A rehab stays. He has been prescribed duloxetine 60mg qHS to target mood, anxiety, and chronic nerve pain. - We reviewed numerous options regarding medication adjustments that could assist with reducing anxiety. - Titration of duloxetine to 90mg qHS (target anxiety and depressive symptoms, but likely would take longer to see maximum benefits) - Initiation of buspirone (likely 10mg BID initially) to more directly target anxiety (more rapid effects, could be tapered to discontinuation once symptoms improved) - Initiation of mirtazapine (likely 15mg qHS) to target mood, anxiety, insomnia, and appetite concerns - Pt reported desire to limit the addition of new medications and did verbalize belief that knowing cardiac concerns had been addressed is already contributing to reduction in anxiety. For these reasons, the patient is reporting desire to only titrate duloxetine at this time. Will order increased dose of 90mg qHS. - Would NOT advise that patient be discharged on lorazepam or any benzodiazepines. He has worked hard to maintain sobriety from alcohol and controlled medications and would suggest steps be taken to protect and support these efforts. He will continue with AA meetings and scheduled individual therapy sessions. Denies significant cravings or temptations to return to abusi ng substances at this time and describes a positive support network. - Pt did sign ROIs for his outpatient therapist and his PCP -will fax copies of our consultation to allow for appropriate coordination of care. - Pt denied SI and acute safety concerns. There is not criteria for inpatient psychiatric hospitalization at this time. We appreciate the opportunity to participate in the care of this patient. Please reach out to our service with any additional questions or updates. Risk Factors Assessment Do You Have Access To A Gun?: No (secured by ) Psych History Identifying Data 65-year-old male admitted medically on 03/19/2020 after presenting to the ED with reports of worsening dyspnea on exertion for the past 4 days. Medically admissions to work-up and monitor for acute congestive heart failure, with cardiac catheterization performed on 03/21/2020. Pt has reportedly demonstrated consistently elevated anxiety levels during his hospitalization. Psychiatric consultation was requested by our cardiology service to evaluate patient for anxiety and assist with medication recommendations. Chief Complaint "I've really not been too well. I had this surgery last week and then started getting short of breath. I'm not a drama weston, but I was just struggling." History of Present Illness Melquiades Harp is a 65-year-old male admitted medically on 03/19/2020 after presenting to the ED with dyspnea on exertion x 4 days. Pt was admitted to allow for continued monitoring and treatment of heart failure with acute decompensation and paroxysmal atrial fibrillation. Pt has other medical concerns as well, including spina bifida, neuropathy, foot ulcer s/p amputation, hypertension, and CAD. Cardiac catheterization was performed on 03/21/2020. Consistent throughout hospital documentation is reports that patient is presenting with exacerbation of anxiety. Psychiatric consultation has been requested by our cardiology service to evaluate patient for anxiety and assist with providing medication recommendations. Initial encounter with psychiatric nurse liaison suggested the patient has been experiencing increased anxiety and depressive symptoms for several months, but especially worsened in the last week. Pt admitted to anhedonia, poor sleep related to racing thoughts, poor appetite, and guilt. He did admit to a history of alcohol and substance abuse, but has been in treatment since he attended rehab in 2017 and reports continued sobriety with support of AA meetings and outpatient therapy through [facility]. Pt denied SI during encounter with our nurse liaison. Pt is cooperative with psychiatric assessment. He reports that his anxiety is already reduced, knowing that his cardiac concerns are being addressed and knowing that steps are being taken to directly address his anxiety. Pt states he is doing much better at this time and is hopeful for discharge soon. Pt does admit to poor sleep and racing thoughts recently, but feels that this has been improving slightly. 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 Pt does feel that his anxiety was drastically exacerbated only within the last week. He does mention his history of substance abuse, admitting he has been sober for the last 3 years and is feeling is current outpatient supports continue to be adequate to maintain his sobriety. He is wanting to continue individual therapy, which has been via teletherapy recently, and is also attempting to stay involved in virtual AA meetings as much as possible. Pt den ies significant temptations or cravings to return to substance use at this time. Pt is aware that he has received lorazepam here in the hospital, and verbalized agreement that it should not be continued on discharge. We did discuss several medication options to better target his anxiety. Pt did report that he desired to limit significant medications adjustments and requested to begin by increasing his dose of duloxetine from 60mg to 90mg. We also reviewed potential benefit of buspirone to target anxiety more directly. Pt stated he would consider this option, but was not interested in pursuing at this time. Pt denied SI and other acute safety concerns. He denied other needs from our service at this time. Past Psychiatric History Current Psychiatric Diagnosis: History of substance abuse Outpatient Services: Therapy - [facility] Attends AA meetings Do You Have Access To A Gun?: No (secured by ) History of Previous Suicide Attempt: No Allergies Allergy/AdvReac Type Severity Reaction Status Date / Time Bactrim Allergy Intermediate RASH Verified 11/14/16 02:28 sulfamethoxazole Allergy Intermediate RASH Verified 03/19/20 17:04 trimethoprim Allergy Intermediate RASH Verified 09/01/19 13:53 Home Medications Home Medications Medication Instructions Recorded Confirmed Type bisacodyl 5 mg PO DAILY PRN 05/02/19 03/19/20 History duloxetine 60 mg PO HS 05/02/19 03/19/20 History gabapentin 300 mg PO HS 05/02/19 03/19/20 History omeprazole 20 mg PO BID 05/02/19 03/19/20 History sotalol 160 mg PO BID 05/02/19 03/19/20 History aspirin 81 mg tablet,delayed 81 mg PO DAILY 08/30/19 03/19/20 History release acetaminophen [Mapap 650 mg PO Q4H PRN #50 tab 09/04/19 03/19/20 Rx (acetaminophen)] [id number] 1 cap PO DAILY 03/19/20 03/19/20 History [Glucosamine Chondroitin PLUS] lisinopril 5 mg PO QAM 03/19/20 03/19/20 History omega 5-bxr-yyf-fish oil [Fish Oil] 1 cap PO BID 03/19/20 03/19/20 History rosuvastatin 40 mg PO DAILY 03/19/20 03/19/20 History Family History Pt reports mother was diagnosed with depression. History of alcohol abuse with maternal grandfather and patient's 4 brothers. Substance Abuse History Pt admits to history of alcohol and substance abuse. He admitted to abusing narcotics and benzodiazepines starting in 2010. He went to rehab in 2017 for the substance abuse, and reports he has been sober since that time. Pt did participate in intensive outpatient rehab and continues to receive support through AA meetings and individual outpatient therapy. Pt is a former smoker. 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 ARREDONDO LAST ECHO 10/2017 Chronic constipation Esophageal dysphagia GERD (gastroesophageal reflux disease) History of cardioversion X2 HLD (hyperlipidemia) HTN (hypertension) Neurogenic bladder Neuropathic foot ulcer Neuropathy Osteoarthritis Paroxysmal atrial fibrillation Spina bifida Spinal cord tumor Surgical History History of right cataract surgery Hx of arthroscopic knee surgery LEFT Hx of colonoscopy Hx of esophagogastroduodenoscopy Hx of foot surgery RIGHT - STRAIGHTEN ANKLE AND UNSUCCESSFUL Hx of heart artery stent 2008 X2 STENT (EDILMA) AT [facility] FOLLOW WITH DR ARREDONDO Hx of spinal surgery 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 Family History Other Breast cancer Heart disease Stroke Social History Smoking Status: Former smoker Second Hand Exposure: Yes (mother smoked); Hx Alcohol Use: No (former) Hx Substance Use: No Preferred Language: Uzbek Communication Ability: Effective Flight Test Supervisor Required: No Beliefs That Will Affect Care: Spiritual (Raised Denominational, not currently practicing) Current Living Situation: Spouse Feels Safe at Home: Yes Assistive Devices: Crutches Physical Exam Psychiatric: Orientation: alert, oriented x 3 and cooperative Apperance: appropriately dressed, appropriately groomed and appeared stated age Eye Contact: good eye contact Motor Behavior: no abnormal motor movements (observed while seated in bedside chair) Speech: normal rate/rhythm/volume of speech Affect: + anxious affect (mildly so) and mood congruent with affect Mood: + anxious mood Thought Process: goal directed thought process, clear/coherent thought process and thought association intact Thought Content: reality based without delusions; no hopelessness and no worthlessness Suicidal Thoughts: denies suicidal thoughts Homicidal Thoughts: denies homicidal thoughts Hallucinations: no auditory hallucinations and no visual hallucinations Cognition: recent memory grossly intact, attention grossly intact and language grossly intact Estimated Intelligence: consistent with education level Insight: good insight Judgement: good judgement Vital Signs (Past 24 Hours): Last Vital Signs Temp 36.8 C 03/22/20 07:45 Pulse 84 03/22/20 07:45 Resp 16 03/22/20 07:45 BP 110/74 03/22/20 07:45 Pulse Ox 98 03/22/20 07:45 Review of Systems Constitutional: reports poor sleep recently Cardiovascular: denied Respiratory: reports improved, but continued shortness of breath Gastrointestinal: denied Neurological: neuropathy at baseline Psychiatric: denies symptoms other than stated above Total of at least 10 systems reviewed, pertinent positives as above and in HPI. Results & Data (PSY) Medications Administered Acetaminophen (Acetaminophen 325 Mg Tab) 650 mg PO Q4H PRN PRN Reason: Pain or Fever Stop: 04/18/20 21:06 Last Admin: 03/21/20 04:14 Dose: 650 mg Documented by: [id number] Apixaban (Apixaban 5 Mg Tablet) 5 mg PO BID AALIYAH Stop: 04/19/20 13:29 Last Admin: 03/22/20 08:00 Dose: 5 mg Documented by: [id number] Admin: 03/21/20 20:10 Dose: 5 mg Documented by: [id number] Admin: 03/21/20 07:50 Dose: 5 mg Documented by: [id number] Admin: 03/20/20 20:43 Dose: 5 mg Documented by: [id number] Admin: 03/20/20 14:44 Dose: 5 mg Documented by: [id number] Aspirin (Aspirin 81 Mg Ectab) 81 mg PO DAILY AALIYAH Stop: 04/19/20 08:59 Last Admin: 03/22/20 08:01 Dose: 81 mg Documented by: [id number] Admin: 03/21/20 07:49 Dose: 81 mg Documented by: [id number] Admin: 03/20/20 08:31 Dose: 81 mg Documented by: [id number] Clopidogrel Bisulfate (Clopidogrel Bisulfate 75 Mg Tab) 75 mg PO QA AALIYAH Stop: 04/21/20 08:59 Last Admin: 03/22/20 08:01 Dose: 75 mg Documented by: [id number] Duloxetine HCl (Duloxetine Hcl 60 Mg Cap) 60 mg PO [facility] Stop: 04/18/20 20:59 Last Admin: 03/21/20 20:10 Dose: 60 mg Documented by: [id number] Admin: 03/20/20 20:43 Dose: 60 mg Documented by: [id number] Admin: 03/19/20 22:27 Dose: 60 mg Documented by: [id number] Fish Oil (Elwin-3 (Purified Fish Oil) 1 Gm Cap) 1 gm PO BID AALIYAH Stop: 04/18/20 21:06 Last Admin: 03/22/20 08:01 Dose: 1 gm Documented by: [id number] Admin: 03/21/20 20:07 Dose: Not Given Documented by: [id number] Admin: 03/21/20 07:50 Dose: 1 gm Documented by: [id number] Admin: 03/20/20 20:44 Dose: 1 gm Documented by: [id number] Admin: 03/20/20 08:31 Dose: 1 gm Documented by: [id number] Admin: 03/19/20 22:22 Dose: 1 gm Documented by: [id number] Gabapentin (Gabapentin 300 Mg Cap) 300 mg PO [facility] Stop: 04/18/20 20:59 Last Admin: 03/21/20 20:09 Dose: 300 mg Documented by: [id number] Admin: 03/20/20 20:44 Dose: 300 mg Documented by: [id number] Admin: 03/19/20 22:28 Dose: 300 mg Documented by: [id number] Furosemide 40 mg/ Syringe 4 mls @ 4 mls/min IV [id number] AALIYAH Stop: 04/19/20 16:59 Last Admin: 03/21/20 09:57 Dose: 4 mls/min Documented by: [id number] Admin: 03/20/20 17:30 Dose: 4 mls/min Documented by: [id number] Lorazepam (Lorazepam 0.5 Mg Tab) 0.5 mg PO Q6H PRN PRN Reason: Anxiety Stop: 04/20/20 14:26 Last Admin: 03/21/20 23:04 Dose: 0.5 mg Documented by: [id number] Admin: 03/21/20 16:37 Dose: 0.5 mg Documented by: [id number] Pantoprazole Sodium (Pantoprazole 40 Mg Tab) 40 mg PO BID AALIYAH Stop: 04/18/20 21:06 Last Admin: 03/22/20 08:01 Dose: 40 mg Documented by: [id number] Admin: 03/21/20 20:09 Dose: 40 mg Documented by: [id number] Admin: 03/21/20 07:50 Dose: 40 mg Documented by: [id number] Admin: 03/20/20 20:44 Dose: 40 mg Documented by: [id number] Admin: 03/20/20 08:31 Dose: 40 mg Documented by: [id number] Admin: 03/19/20 22:21 Dose: 40 mg Documented by: [id number] Rosuvastatin Calcium (Rosuvastatin Calcium 20 Mg Tab) 40 mg PO DAILY AALIYAH Stop: 04/19/20 08:59 Last Admin: 03/22/20 08:00 Dose: 40 mg Documented by: [id number] Admin: 03/21/20 07:48 Dose: 40 mg Documented by: [id number] Admin: 03/20/20 08:31 Dose: 40 mg Documented by: [id number] Sotalol HCl (Sotalol Hcl 80 Mg Tab) 160 mg PO BID AALIYAH Stop: 04/20/20 03:34 Last Admin: 03/22/20 08:00 Dose: 160 mg Documented by: [id number] Admin: 03/21/20 20:08 Dose: 160 mg Documented by: [id number] Admin: 03/21/20 04:21 Dose: 160 mg Documented by: [id number] Coding Level of Care Code 70967 [facility] Intl Hosp Care Lvl 3
--- NOTE | 2020-03-22 10:38 | Cardiology Progress Note ---
Date of Service March 22, 2020 Assessment & Plan (1) Heart failure, diastolic, with acute decompensation: (2) Mitral valve regurgitation: (3) Dyspnea on exertion: (4) Pulmonary edema: (5) HTN (hypertension): (6) Paroxysmal atrial fibrillation: Doing well from a cardiac standpoint today. cardiac cath demonstrated significant mid LAD disease s/p EDILMA placement nonobstructive disease disease of left main and ostial LAD cont medical therapy will need anxiety control as well, appreciate psychiatry input. Has spontaneously converted back to normal sinus rhythm with reinstitution of his sotalol. Will be discharged on triple therapy and has been cautioned on bleeding risk. Okay to discharge to home from a cardiac standpoint. Discharge home on sotalol 160 mg p.o. twice daily, Crestor 40 mg daily, aspirin, Plavix and Eliquis. My office will call to arrange follow-up with me in 3 to 4 weeks. Admission and Anticipated Discharge Date Admission Date: March 20, 2020 Subjective Patient seen and examined, chart reviewed. He has been seen by our psychiatry colleagues today and feels well after talking to them. Still little anxious and a little short of breath due to the anxiety but denies any chest pain, palpitations, lightheadedness, dizziness or syncope. Telemetry reviewed: Atrial fibrillation overnight patient spontaneously converted to normal sinus rhythm at approximately 930 this morning. Review of Systems Review of Systems: All systems reviewed & are unremarkable except as noted in HPI & below Physical Exam Physical Exam: General: Awake, alert and oriented x 3. No acute distress. Mildly anxious. HEENT: Normocephalic, atraumatic. Pupils equal, round and reactive to light and accommodation. Extraocular muscles are intact. Anicteric sclera. Moist mucous membranes. Neck: No JVD. No bruit. Cardiovascular: Regular. Positive S-4. Normal S-1 and S-2. No S-3. 3/6 holosystolic ejection murmur, left sternal border, mid-clavicular line with radiation to the axilla. No rubs. Pulmonary: Clear to auscultation bilaterally. No rales, rhonchi, or wheezing. Abdomen: Bowel sounds x 4, soft. No rebound, guarding or tenderness. No organomegaly. Extremities: No clubbing, cyanosis or edema. +2 pedal pulses bilaterally. Skin: Warm and dry. Results & Data ([facility]) Vital Signs (Past 12 Hours) Vital Signs Temp Pulse Resp BP Pulse Ox 03/22/20 07:45 36.8 C 84 16 110/74 98 03/22/20 04:05 37 C 81 18 105/58 L 94 03/21/20 23:28 36.8 C 88 20 88/53 L 92
[2020-03-22 15:30] VITALS: PULSE 84; TEMP 97.3; O2SAT 96
[2020-03-22 15:49] VITALS: BP 105/71
--- NOTE | 2020-03-22 15:58 | Orthopedic Consultation ---
Date of Consultation March 22, 2020 Assessment & Plan (1) Status post foot joint surgery: Status post left foot Munoz procedure, secondfourth toe DuVries arthroplasties. Dressing kept in place. He is to be nonweightbearing on the left lower extremity at all times. Ice and elevate as needed. Follow-up next week as scheduled for evaluation for suture removal and dressing change. Supervising Physician Co-Signing Physician Notes Melquiades and I discussed his plan of care for his left foot. All questions were answered. He had no complaints regarding the left foot. Patient is admitted for an orthopedically unrelated issue. No complaints of current shortness of breath, chest pain or palpitations noted. Physical exam as noted above. Status post left foot surgery. No new complaints or concerns. Maintain nonwe ightbearing in the splint. Follow-up next week in clinic for further care and management. Thank for the opportunity consult in care of this patient. Anthony Carvajal DO History of Present Illness Reason for Consultation: Evaluate left foot Attending Physician: Manuel Ayala MD History of Present Illness This is a patient who had undergone a left foot Munoz procedure with first IP joint fusion, second through fourth toe DuVries arthroplasties approximately 10 days ago. He was admitted for cardiac issues and had a stent placed yesterday. We were asked to evaluate the patient since he recently had surgery with us. He does not have any new issues or unexpected problems with the left foot. No pain within the left foot. He has been pleased with his progress regarding postop foot recovery thus far. He has been nonweightbearing in a posterior splint since surgery. No complaints of redness, swelling, streaking or stiffness within the left foot. Allergies Allergy/AdvReac Type Severity Reaction Status Date / Time Bactrim Allergy Intermediate RASH Verified 11/14/16 02:28 sulfamethoxazole Allergy Intermediate RASH Verified 03/19/20 17:04 trimethoprim Allergy Intermediate RASH Verified 09/01/19 13:53 Home Medications Home Medications Medication Instructions Recorded Confirmed Type bisacodyl 5 mg PO DAILY PRN 05/02/19 03/19/20 History gabapentin 300 mg PO HS 05/02/19 03/19/20 History omeprazole 20 mg PO BID 05/02/19 03/19/20 History sotalol 160 mg PO BID 05/02/19 03/19/20 History aspirin 81 mg tablet,delayed 81 mg PO DAILY 08/30/19 03/19/20 History release acetaminophen [Mapap 650 mg PO Q4H PRN #50 tab 09/04/19 03/19/20 Rx (acetaminophen)] Glucosamine Chondroitin PLUS 1 cap PO DAILY 03/19/20 03/19/20 History omega [id number]-fish oil [Fish Oil] 1 cap PO BID 03/19/20 03/19/20 History rosuvastatin 40 mg PO DAILY 03/19/20 03/19/20 History apixaban [Eliquis] 5 mg PO BID #60 tab 03/22/20 Rx clopidogrel 75 mg PO QAM #30 tab 03/22/20 Rx duloxetine 90 mg PO HS #90 cap 03/22/20 Rx Patient History Medical History Anxiety Atrial fibrillation DX 2013 HX OF CARDIOVERSION X 2 LAST ATRIAL FIB WAS ABOUT 5 YEARS AGO BPH (benign prostatic hyperplasia) CAD (coronary artery disease) Cardiac murmur follows with DR. ARREDONDO LAST ECHO 10/2017 Chronic constipation Esophageal dysphagia GERD (gastroesophageal reflux disease) History of cardioversion X2 HLD (hyperlipidemia) HTN (hypertension) Neurogenic bladder Neuropathic foot ulcer Neuropathy Osteoarthritis Paroxysmal atrial fibrillation Spina bifida Spinal cord tumor Surgical History History of right cataract surgery Hx of arthroscopic knee surgery LEFT Hx of colonoscopy Hx of esophagogastroduodenoscopy Hx of foot surgery RIGHT - STRAIGHTEN ANKLE AND UNSUCCESSFUL Hx of heart artery stent 2008 [facility]MA[facility] FOLLOW WITH DR ARREDONDO Hx of spinal surgery 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 Family History Other Breast cancer Heart disease Stroke Social History Smoking Status: Former smoker Second Hand Exposure: Yes (mother smoked); Hx Alcohol Use: No (former) Hx Substance Use: No Preferred Language: Belgian Communication Ability: Effective Obstetrics Gynecology Md Required: No Beliefs That Will Affect Care: Spiritual (Raised [employer], not currently practicing) Current Living Situation: Spouse Feels Safe at Home: Yes Assistive Devices: Crutches Physical Exam Constitutional: WD/WN, vitals as above ENMT: external ear and nose normal, oropharynx normal Neck: trachea midline, no thyromegaly Musculoskeletal: Left foot: Dressing is clean, dry, intact. Posterior splint is intact. Well aligned forefoot. Stable pins in the distal aspects of the second, third, fourth toes. No evidence of discharge or drainage. Sensation is limited due to permanent neuropathy bilateral feet. Toes are pink and warm. Neurologic: normal touch/pain/proprioception Psychiatric: A+Ox3, euthymic affect Speech: normal rate/rhythm/volume of speech Results & Data ([facility]) Vital Signs (Past 12 Hours) Vital Signs Temp Pulse Resp BP BP Pulse Ox 03/22/20 15:46 36.3 C L 84 18 96/62 L 105/71 96 03/22/20 15:30 36.3 C L 84 18 96/62 L 96 03/22/20 12:06 36.9 C 80 18 102/58 L 99 03/22/20 07:45 36.8 C 84 16 110/74 98 03/22/20 04:05 37 C 81 18 105/58 L 94
--- NOTE | 2020-03-22 16:48 | Hospitalist Progress Note ---
Date of Service March 22, 2020 Assessment & Plan (1) Heart failure, diastolic, with acute decompensation: (1) Dyspnea on exertion: (2) Acute on chronic diastolic congestive heart failure: Stable angina, history of CAD, status post PCI to the LAD in 2010 Per admitting service notes This is a 65-year-old male with PMH of paroxysmal atrial fibrillation on Sotalol, CAD (s/p PCI to LAD), moderate mitral regurgitation, HTN, HLD, spina bifida s/p repair, neurogenic bladder and other medical problems listed below who presents with worsening dyspnea on exertion x4 days. -Worsening dyspnea on exertion, orthopnea, PND, 10 pound weight gain -BNP greater than 10,000, d-dimer, 1,010, initial troponin negative. Mild leukocytosis of 11.89, COVID PCR negative -Chest CTA with no evidence of pulmonary embolus in the main, lobar, or segmental pulmonary arteries but cardiomegaly with evidence of congestive failure and cardiac dysfunction -Recently seen by Dr. Way for pre-op evaluation on 02/20/20. Underwent Lexiscan NST which was normal and 2D echo on 03/06/20 with moderately increased (concentric) LV wall, preserved EF of 55-59%, mild AV sclerosis, moderate mitral annular calcification with heavy calcification of the anterior mitral valve leaflet and chordal structure. Mild MR and TR present -Given 20mg IV Lasix in ED as well as 1 L NSS, DuoNeb, 1 g and IV dexamethasone -Will give an additional 20 mg IV Lasix for total of 40 mg this evening and plan for another 40mg IV in AM -hold for SBP <100 -Low sodium diet, daily weights, supplemental O2 PRN, strict I&Os with vera catheter in place -Routine cardiology consult 03/20/2020 Given IV Lasix 40 mg IV every 12, spironolactone Diuresed well 03/21/2020 however still was having dyspnea, status post cardiac cath with PCI, stent placement to the LAD Plavix added to aspirin, rosuvastatin continued Hold Lasix and spironolactone, patient is euvolemic today 03/22/2020 Tolerating medications well No chest pain Shortness of breath improved Cleared by home health care case manager to be discharged home Discharge medications: Sotalol 160 mg p.o. twice daily, Crestor 40 mg daily, aspirin 81 mg daily Plavix 70 mg daily, Eliquis 5 mg twice a day Follow-up with Dr. Way in 3 to 4 weeks (3) HTN (hypertension): Blood pressure borderline, hold lisinopril Monitor blood pressure and resume lisinopril accordingly (4) Paroxysmal atrial fibrillation: Continue Sotalol Eliquis restarted (5) Coronary artery disease: S/P PCI LAD in 2011 Management per #1 (6) Neuropathy: Continue gabapentin HS (7) Neuropathic foot ulcer: Per admitting service notes: -S/p amputation of fourth left metatarsal by Dr. Carvajal last week, due for next f/u appt -Fall precautions and foot care discussed- had dressing changed at recent appt and was not instructed to change on his own - Orthopedic Service consulted: Recommend to keep dressing in place, nonweightbearing on the left lower extremity at all times, ice and elevate Follow-up with orthopedic clinic next week for evaluation, suture removal and dressing change (8) Neurogenic bladder: Patient does straight cath at home (9) Anxiety As needed Ativan ordered Psychiatry consulted: Recommend to increase Cymbalta to 90 mg at bedtime Continue to monitor as an outpatient DVT Ppx: Eliquis Code status: FULL PCP: Mehrdad Dispo: Discharge to home with home health services Follow-up with primary care physician next week Follow-up with home health care case manager Dr. Way in 3 to 4 weeks Follow-up with orthopedic surgeon in 1 week Admission and Anticipated Discharge Date Admission Date: March 20, 2020 Subjective Follow-up for seizure exacerbation, CAD, status post stent placement Seen sitting up in bedside chair, comfortable, awake, alert, x3, in good spirits States he feels much better overall Minimal dyspnea which is chronic No chest pain, cough, fevers or chills, palpitations, dizziness Ambulating with no problems Denies other symptoms States he is ready and would like to be discharged today Review of Systems Review of Systems: All systems reviewed & are unremarkable except as noted in Subjective Physical Exam Physical Exam: General- oriented x 3, not in distress, speaks in sentences with no effort or accessory muscle use Eyes- anicteric Neck- no JVD Lungs- clear breath sounds, no crackles, no wheezing bilaterally Heart- normal rate, regular rhythm; no murmurs Abdomen- normal bowel sounds, nondistended, soft, nontender Extremities-right lower extremity: No pretibial edema, no calf tenderness Left lower extremity: Positive heavy dressing in place, no signs of infection of the toes Neuro- alert, oriented x 3; no gross focal neurologic deficits Skin- warm & dry Results & Data Results & Data ([facility]) Vital Signs (Past 12 Hours) Vital Signs Temp Pulse Resp BP BP Pulse Ox 03/22/20 15:46 36.3 C L 84 18 96/62 L 105/71 96 03/22/20 15:30 36.3 C L 84 18 96/62 L 96 03/22/20 12:06 36.9 C 80 18 102/58 L 99 03/22/20 07:45 36.8 C 84 16 110/74 98 Laboratory Results Laboratory Results - last 24 hr 03/22/20 08:54 Sodium 137 Potassium 3.7 D Chloride 104 Carbon Dioxide 23 Anion Gap 10.0 BUN 26 H Creatinine 1.06 Est Cr Clr Drug Dosing 70.5 Est GFR ( Amer) 86.1 Est GFR (Non-Af Amer) 74.3 BUN/Creatinine Ratio 24.2 H Glucose 97 Calcium 8.8
[2020-03-22] MEDS ORDERED: DULoxetine HCL 30 MG CAP PO SCH (21:00)
--- NOTE | 2020-03-24 16:08 | Discharge Summary ---
Date of Service March 24, 2020 Admission HPI Per Admitting Provider This is a 65-year-old male with PMH of paroxysmal atrial fibrillation on Sotalol, CAD (s/p PCI to LAD), moderate mitral regurgitation, HTN, HLD, spina bifida s/p repair, neurogenic bladder and other medical problems listed below who presents with worsening dyspnea on exertion x4 days. Patient underwent amputation of fourth left metatarsal by Dr. Carvajal last week. Since then, he admits he has been less active than usual and has been eating a lot of takeout food, endorsing a 10 pound weight gain. Also states he was not as compliant with medication as usual, taking meds (including Sotalol 2 out of 7 days). On Wednesday, patient became acutely short of breath with any type of movement and had some twinging pains below the left breastbone that resolved by the next day. Noted some wheezing. Continued to feel dyspneic with any type of movement and was unable to sleep lying flat. Endorses both orthopnea and PND. Dry cough but no sputum production. Denies any fever, chills, headache or malaise. Had some nausea yesterday but no vomiting. No abdominal pain but feels distended there. Does self cath due to history of neurogenic bladder from spina bifida. Still feeling short of breath but better after DuoNeb treatment. Denies any chest pain. No fever, chills, lightheadedness, headache, cough, sore throat, chest pain, palpitations, nausea, vomiting, abdominal pain or dysuria. Has felt constipated recently but took laxative last evening with bowel movement. Of note, prior to surgery, patient had preop eval by Dr. Way and mentioned some increased dyspnea on exertion at that time. Underwent Lexiscan NST which was normal and 2D echo on 03/06/20 with moderately increased (concentric) LV wall, normal left ventricular wall motion, preserved EF of 55 to 59%, mild aortic valve sclerosis, moderate mitral annular calcification with heavy calcification of the anterior mitral valve leaflet and chordal structure. Mild MR and TR present. Admission Exam Per Admitting Provider General Appearance: WD/WN, vitals as above, NAD, sitting up in bed, pleasant, conversational dyspnea Head: normocephalic, atraumatic Eyes: normal inspection, PERRL, conjunctivae normal, anicteric sclerae ENT: external ear and nose normal, oropharynx normal Neck: normal visual inspection, trachea midline, no thyromegaly Respiratory: Increased work of breathing but no accessory muscle use. Bibasilar Rales on auscultation -no wheeze or rhonchi Cardiovascular: regular rate and rhythm, +systolic murmur, normal peripheral pulses, no BLE edema. Vessels: no JVD Chest: normal inspection of chest Abdomen/GI: normal bowel sounds, mildly distended but soft, nontender, no hepatosplenomegaly Extremities/Musculoskeletal: no cyanosis or clubbing, extremities motor strength 5/5. +LLE with surgical dressing intact, wearing boot Neurologic: PERRL, EOMI, accommodation nl, no face palsy, no dysarthria, CN's II-XI intact bilaterally and moves all extremities Psychiatric: A+Ox3, euthymic affect Skin: no rashes, normal color, warm/dry Principal Diagnosis Coronary Artery Disease, status post stent placement artery; Acute on Chronic Diastolic Congestive Heart Failure Discharge Exam General- oriented x 3, not in distress, speaks in sentences with no effort or accessory muscle use Eyes- anicteric Neck- no JVD Lungs- clear breath sounds, no crackles, no wheezing bilaterally Heart- normal rate, regular rhythm; no murmurs Abdomen- normal bowel sounds, nondistended, soft, nontender Extremities-right lower extremity: No pretibial edema, no calf tenderness Left lower extremity: Positive heavy dressing in place, no signs of infection of the toes Neuro- alert, oriented x 3; no gross focal neurologic deficits Skin- warm & dry Discharge Data Allergies Allergy/AdvReac Type Severity Reaction Status Date / Time Bactrim Allergy Intermediate RASH Verified 11/14/16 02:28 sulfamethoxazole Allergy Intermediate RASH Verified 03/19/20 17:04 trimethoprim Allergy Intermediate RASH Verified 09/01/19 13:53 Consultations 03/19/20 17:16 ED Decision to Admit Stat 03/20/20 08:00 Consult Cardiology Routine 03/20/20 19:01 Consult Orthopedic Surgery Routine 03/21/20 11:11 Consult Cardiac Catheterization Routine 03/21/20 14:20 Consult Cardiac Rehabilitation Routine 03/21/20 14:53 Consult Psychiatry Routine Procedures Performed Operation Date: 03/21/20 12:00 Actual Procedures p Cath, Right and Left Heart - Fidel Hawkins MD s Cineradiography w/Routine Exam - Fidel Munoz MD s IVUS Coronary Single Vessel - Fidel Munoz MD s Drug Eluting Stent SGl Vessel - Fidel Munoz MD Ordered Studies 03/19/20 14:11 CT angio chest PE protocol Stat Thyroid: Atrophic. Thoracic aorta: There is mild atherosclerotic calcification of the thoracic aorta, which is normal in caliber and demonstrates bovine variant arch anatomy. No dissection is seen. Pulmonary vasculature: The pulmonary trunk is normal in caliber. There are no filling defects identified in main, lobar, or segmental pulmonary branches to suggest pulmonary embolus. Heart: The heart is enlarged and without pericardial effusion. The coronary arteries are densely calcified. Reflux of contrast in the IVC and hepatic veins suggests cardiac dysfunction. Lungs and pleural spaces: Evaluation of the lung parenchyma is modestly degraded by motion artifact. Mild emphysematous change is noted. There are small to moderate pleural effusions with dependent atelectasis. There is diffuse intralobular septal thickening as well as bilateral perihilar groundglass opacities. Scattered calcified granulomas are observed. A 3 mm right apical pulmonary nodule and a 4 mm right middle lobe pulmonary nodule seen on image #[id number] have been present dating back to 2014 and are of doubtful significance. Mediastinum: Subcentimeter mediastinal lymph nodes are not pathologically enlarged by size criteria. Laina: Clear. Axillae: There is no axillary lymphadenopathy. Upper abdomen: Partially visualized upper abdominal viscera is within normal limits. Skeletal structures: No lytic or blastic bony lesions are seen. IMPRESSION: 1. There is no evidence of pulmonary embolus in the main, lobar, or segmental pulmonary arteries. 2. Cardiomegaly with evidence of congestive failure and cardiac dysfunction. 3. Bilateral groundglass opacities are typical for interstitial edema. Correlate clinically for evidence of a superimposed infectious/inflammatory pneumonitis. 4. Small to moderate pleural effusions with bibasilar atelectasis. 5. Additional findings as above. 03/21/20 11:33 CL Cath Imgs for PACS use only Routine 03/21/20 14:11 CL IVUS Coronary Single Vessel Routine Hospital Course (1) Heart failure, diastolic, with acute decompensation: (1) Dyspnea on exertion: (2) Acute on chronic diastolic congestive heart failure: Stable angina, history of CAD, status post PCI to the LAD in 2010 Per admitting service notes This is a 65-year-old male with PMH of paroxysmal atrial fibrillation on Sotalol, CAD (s/p PCI to LAD), moderate mitral regurgitation, HTN, HLD, spina bifida s/p repair, neurogenic bladder and other medical problems listed below who presents with worsening dyspnea on exertion x4 days. -Worsening dyspnea on exertion, orthopnea, PND, 10 pound weight gain -BNP greater than 10,000, d-dimer, 1,010, initial troponin negative. Mild leukocytosis of 11.89, COVID PCR negative -Chest CTA with no evidence of pulmonary embolus in the main, lobar, or segmental pulmonary arteries but cardiomegaly with evidence of congestive failure and cardiac dysfunction -Recently seen by Dr. Way for pre-op evaluation on 02/20/20. Underwent Lexiscan NST which was normal and 2D echo on 03/06/20 with moderately increased (concentric) LV wall, preserved EF of 55-59%, mild AV sclerosis, moderate mitral annular calcification with heavy calcification of the anterior mitral valve leaflet and chordal structure. Mild MR and TR present -Given 20mg IV Lasix in ED as well as 1 L NSS, DuoNeb, 1 g and IV dexamethasone -Will give an additional 20 mg IV Lasix for total of 40 mg this evening and plan for another 40mg IV in AM -hold for SBP <100 -Low sodium diet, daily weights, supplemental O2 PRN, strict I&Os with vera catheter in place -Routine cardiology consult 03/20/2020 Given IV Lasix 40 mg IV every 12, spironolactone Diuresed well 03/21/2020 however still was having dyspnea, status post cardiac cath with PCI, stent gerhard cement to the LAD Plavix added to aspirin, rosuvastatin continued Hold Lasix and spironolactone, patient already euvolemic 03/22/2020 Tolerating medications well No chest pain Shortness of breath improved Cleared by fermentation engineer to be discharged home Discharge medications: Sotalol 160 mg p.o. twice daily, Crestor 40 mg daily, aspirin 81 mg daily Plavix 70 mg daily, Eliquis 5 mg twice a day hold diuretics Follow-up with Dr. Way in 3 to 4 weeks (3) HTN (hypertension): Blood pressure borderline, hold lisinopril Monitor blood pressure and resume lisinopril accordingly (4) Paroxysmal atrial fibrillation: Continue Sotalol Eliquis 5mg BID restarted (5) Coronary artery disease: S/P PCI LAD in 2011 Management per #1 (6) Neuropathy: Continue gabapentin HS (7) Neuropathic foot ulcer: Per admitting service notes: -S/p amputation of fourth left metatarsal by Dr. Carvajal last week, due for next f/u appt -Fall precautions and foot care discussed- had dressing changed at recent appt and was not instructed to change on his own - Orthopedic Service consulted: Recommend to keep dressing in place, nonweightbearing on the left lower extremity at all times, ice and elevate Follow-up with orthopedic clinic next week for evaluation, suture removal and dressing change (8) Neurogenic bladder: Patient does straight cath at home (9) Anxiety As needed Ativan ordered Psychiatry consulted: Recommend to increase Cymbalta to 90 mg at bedtime Continue to monitor as an outpatient DVT Ppx: Eliquis Code status: FULL PCP: [facility] Dispo: Discharge to home with home health services Follow-up with primary care physician next week Follow-up with fermentation engineer Dr. Way in 3 to 4 weeks Follow-up with orthopedic surgeon in 1 week Total Time Total Time Spent Total Time Spent (In Minutes): 45 mins Discharge Plan Discharge Items Patient Disposition: Home - Home Health Services Reason For Visit: DYSPNEA ON EXERTION Discharge Diagnosis: ACUTE ON CHRONIC DIASTOLIC CONGESTIVE HEART FAILURE EXACERBATION, CORONARY ARTERY DISEASE, STENT PLACEMENT TO THE LAD Activity: As commented below Activity Comment: Nonweightbearing on the left lower extremity, always ambulate carefully Lifting: Wait until after follow-up appointment Exercise/Sports: Wait until after follow-up appointment Driving/Machine Use: No driving until allowed by primary care physician Non-emergency contact: Primary Care Provider Call non-emergency contact if: you have any medication questions, your symptoms worsen, your pain is not controlled, your pain is worsening, your pain is unusual for you, your pain is concerning for you, you have a fever, your wound has increased redness, your wound has increased drainage and your wound pain has increased Follow-up/Referrals: Jonh Way DO [Physician] - Anthony Carvajal DO [Surgeon] - Kodi Cronin MD [Primary Care Provider] - 03/26/20 11:00 am (Date & Time 03/26/2020 11:00 AM Provider Kodi Cronin III, MD Department [facility] ) Diet: Heart Healthy Addtl Attending Provider Instructions: Please review your new medication list and follow instructions carefully. Your new medications include: Plavix-to prevent stent blockage Eliquis-to prevent stroke secondary to underlying atrial fibrillation Increase Cymbalta to 90mg daily. Stop taking lisinopril for now. Your primary care physician or fermentation engineer will advise you regarding this on your follow-up visit. Call primary care physician or return to the ER immediately if with worsening of symptoms. Follow-up with Dr. Cronin next week as outlined above. Follow-up with orthopedic surgeon next week as scheduled. Follow-up with fermentation engineer Dr. Way in 3 to 4 weeks. The clinic will be calling you soon for the appointment. Pending Studies at Discharge: No Stand-Alone Forms: [facility] [employer], Smoking Cessation Medications and DC Order Prescriptions: New Eliquis 5 mg Tablet 5 mg PO BID Qty: 60 RF: 2 clopidogrel 75 mg Tablet 75 mg PO QAM Qty: 30 RF: 2 duloxetine 30 mg Capsule,Delayed Release(Dr/Ec) 90 mg PO HS Qty: 90 RF: 0 Continued aspirin [Adult Aspirin Regimen] 81 mg tablet,delayed release (DR/EC) 81 mg PO DAILY RF: 0 acetaminophen [Mapap (acetaminophen)] 325 mg Tablet 650 mg PO Q4H PRN (Reason: pain) Qty: 50 RF: 0 sotalol 160 mg Tablet 160 mg PO BID RF: 0 gabapentin 300 mg Capsule 300 mg PO HS RF: 0 bisacodyl 5 mg Tablet 5 mg PO DAILY PRN (Reason: Constipation) RF: 0 omeprazole 20 mg Tablet,Delayed Release (Dr/Ec) 20 mg PO BID RF: 0 rosuvastatin 40 mg tablet 40 mg PO DAILY RF: 0 omega [id number] oil [Fish Oil] 1,200 (144-216) mg Capsule 1 cap PO BID RF: 0 Glucosamine Chondroitin PLUS [phone] mg Capsule 1 cap PO DAILY RF: 0 Discontinued duloxetine 60 mg Capsule,Delayed Release(Dr/Ec) 60 mg PO HS RF: 0 lisinopril 10 mg tablet 5 mg PO QAM RF: 0 Discharge Orders: Discharge Order (Routine); Ordered 03/22/20 Ordered By: Manuel Sanchez/Other Patient Handouts: Foot Surg Protect Foot After Admission Data Admit Date/Time: 03/20/20 19:22 Attending Provider: Manuel Ayala Admit Provider: Carlitos Gonsalves Primary Care Provider: Kodi Cronin Other Providers: Carlitos Gonsalves ; Jonh Way ; Anthony Carvajal ; Fidel Hawkins ; Kat Gutiérrez Other Interventions: Discharge Summary Assessment (RN) Last Done: 03/22/20 17:16
== END 2020-03-22 18:00 | disposition home health service (06) | DRG 247 ==
LOC: 2N 12:49 → ED 12:49 → SUATTDRO 18:04 → 2N 20:26 → 2S 03-21 14:44